=== PATIENT | male | born 1970 | race Caucasian/White ===

== ENCOUNTER 2020-07-24 21:14 | Emergency (ER) | payer OTHER ==
[~2020-07-24] VITALS: Ht 188 cm; Wt 83.9 kg
--- OUTSIDE RECORDS SUMMARY | ~2020-07-24 | XMS | Encounter Summary ---
Demographics + + + | Address | [address] | | | [place] [address] | + + + | Home Phone | | + + + | Preferred Language | Unknown | + + + | Marital Status | Single | + + + | Jain Affiliation | NON | + + + | Race | White | + + + | Ethnic Group | Not or | + + + Author + + + | Author | [facility] | + + + | Organization | [facility] | + + + | Address | Unknown | + + + | Phone | Unavailable | + + + Support + + + + + | Name | Relationship | Address | Phone | + + + + + | Abdon Gross | ECON | [address] | | | [address] | | [place] | | | | | [address] | | + + + + + Care Team Providers + +------+ + | Care Group Cio Name | Role | Phone | + +------+ + | No Pcp Per Patient | PCP | Unavailable | + +------+ + Reason for Visit + + + | Reason | Comments | + + + | Shoulder pain | R shoulder pain f/u. | + + + Consultation (Routine) + +--------+ + + + + | Status | Reason | Specialty | Diagnoses / | Referred By | Referred To | | | | | Procedures | Contact | Contact | + +--------+ + + + + | Pending | | Orthopedics | Diagnoses | [place], | Davian, | | Review | | | Unspecified | Michele Lin, | Mario Alberto Perez MD 7 | | | | | rotator | LOAD BUILDER | Anselmo Hernadez | | | | | cuff tear or | [place] | Drive | | | | | rupture of | [place] | [place], | | | | | right | Community | [place] [address] | | | | | shoulder, | Health [address] | Phone: | | | | | not | [address] | [phone] | | | | | specified as | [place], [place] | Fax: | | | | | traumatic | [address] | [phone] | | | | | Pain in | Phone: | | | | | | right | [phone] | | | | | | shoulder | Fax: | | | | | | Other muscle | [phone] | | | | | | spasm | | | | | | | Sciatica, | | | | | | | right side | | | + +--------+ + + + + Encounter Details +--------+---------+ + + + | Date | Type | Department | Care Team | Description | +--------+---------+ + + + | 06/08/ | Office | [facility] | Beni Helm, | Shoulder | | 2017 | Visit | Sports Medicine & | MD [address]os | impingement, right | | | | Orthopaedic Surgery | [address] [place], [place] | (Primary Dx) | | | | [address] | [address] | | | | | [place], [place] | [phone] | | | | | [address] | | | | | | [phone] | | | +--------+---------+ + + + Social History + +-------+ +--------+------+ | Tobacco Use | Types | Packs/Day | Years | Date | | | | | Used | | + +-------+ +--------+------+ | Former Smoker | | | | | + +-------+ +--------+------+ + + +---------+ + | Alcohol Use | Drinks/Week | oz/Week | Comments | + + +---------+ + | Yes | 2-5 Cans of beer | 0.0 | 2-5 20oz cans/week | + + +---------+ + + + + | Sex Assigned at | Date Recorded | | | | + + + | Not on file | | + + + documented as of this encounter Last Filed Vital Signs + +---------+ + + | Vital Sign | Reading | Time Taken | Comments | + +---------+ + + | Blood Pressure | 122/88 | 06/08/2017 2:52 PM | | | | | PDT | | + +---------+ + + | Pulse | 114 | 06/08/2017 2:52 PM | | | | | PDT | | + +---------+ + + | Temperature | - | - | | + +---------+ + + | Respiratory Rate | - | - | | + +---------+ + + | Oxygen Saturation | - | - | | + +---------+ + + | Inhaled Oxygen | - | - | | | Concentration | | | | + +---------+ + + | Weight | - | - | | + +---------+ + + | Height | - | - | | + +---------+ + + | Body Mass Index | - | - | | + +---------+ + + documented in this encounter Patient Instructions Patient Instructions Beni Helm MD - 06/08/2017 3:00 PM PDTFollow up in 6 weeks. Continue exercises. Ice for pain. documented in this encounter Progress Notes Beni Helm MD - 06/08/2017 3:00 PM PDT Chief Complaint: Right shoulder pain. HPI: David Hall is a 46 y.o. year old male from [place] who presents to the office to y for evaluation of right shoulder pain. He injured this linda years ago and is having pa in with activities that require right shoulder movement and strength overhead. He was referred to the office today for orthopedic evaluation by self. Current pain is 8/10 and is characterized as sharp, stabbing, aching and throbbing. Sympto ms are unchanged. The pain does wake the patient at night. It is associated with swelling , bruising and numbness. Symptoms are aggravated by overhead activities, lifting, exercise and improve with rest and ice. He is using naproxen for the pain. Past Medical and Surgical History: Reviewed per patient intake form. Review of Systems: Completed and reviewed with patient per patient intake form. Pertinent positives noted in HPI. See scanned document for reference. Physical Exam: BP 122/88 | Pulse 114 General/Constitutional: Well developed, well nourished male, alert and oriented, and in no acute distress. Right shoulder: Inspection: No swelling or obvious deformities. Palpation: Pain over biceps. Range of motion: FF 110. ER 45. IR 45. Strength: FF 4/5. ER 4/5. Stability: good Special Tests: pos speeds, pos impingement Contralateral shoulder- Inspection: No swelling or obvious deformities. Palpation: Nontender. Range of motion: Full range of motion. Strength: Normal strength. Diagnostic Imaging: XR examination reveals no evidence of acute fracture. Assessment: Right shoulder impingement. Plan: The patient's clinical history and physical exam are consistent with same. I reviewed the natural history of this disorder with the patient and have outlined treatment options. We will inject shoulder Injection: Risks and complications were discussed with the patient today. All questions were answered . Correct patient, site, and side were confirmed. After informed consent, a sterile prep w as performed on the right shoulder. 8cc of 0.25% Bupivocaine and 1 cc of Depo-Medrol 80mg/m L were injected into the right shouldert. A sterile dressing was applied. The patient zander ated the procedure well and there were no complications. Follow up: 6 weeks, he may need mri 17 3:53 PM PDTdocumented in this encounter Plan of Treatment +--------+ + + + + | Date | Type | Specialty | Care Team | Description | +--------+ + + + + | 08/07/ | Telephone-S | Pre-operative | , [facility] Double Needle Stitcher [address] | | | 2019 | cheduled | Medicine | [address] | | | | | | [place] [address] | | +--------+ + + + + | 08/13/ | Office | Surgery | Cyndie Hunt MD | | | 2019 | Visit | | [address] | | | | | | [place], | | | | | | [place] [address] | | | | | | [phone] | | | | | | | | +--------+ + + + + | 08/14/ | Procedure | Surgery | | | | 2019 | Pass | | | | +--------+ + + + + | 09/10/ | Telephone-S | Surgery | Cyndie Hunt MD | | | 2019 | cheduled | | [address] | | | | | | [place], | | | | | | [place] [address] | | | | | | [phone] | | | | | | | | +--------+ + + + + documented as of this encounter Procedures + +--------+ + + + | Procedure Name | Priori | Date/Time | Associated Diagnosis | Comments | | | ty | | | | + +--------+ + + + | [place] DRAIN/INJECT | Routin | 06/08/2017 | Shoulder | | | LARGE JOINT/BURSA | e | 3:18 PM | impingement, right | | | W/O US GUIDE | | PDT | | | + +--------+ + + + documented in this encounter Visit Diagnoses + + | Diagnosis | + + | Shoulder impingement, right - Primary | + + documented in this encounter Administered Medications + +--------+ +-------+------+ + | Medication Order | MAR | Action | Dose | Rate | Site | | | Action | Date | | | | + +--------+ +-------+------+ + | Methylprednisolone Acetate 80 | Given | 06/08/2017 | 80 mg | | Right | | Mg Intraarticular | | 15:43 | | | Shoulder | | | | PDT | | | | + +--------+ +-------+------+ + +---+---+ | | | +---+---+ documented in this encounter"
--- OUTSIDE RECORDS SUMMARY | ~2020-07-24 | XMS | Clinical Summary ---
Demographics + + + | Address | [address] | | | [place] [address] | + + + | Home Phone | | + + + | Preferred Language | Unknown | + + + | Marital Status | Single | + + + | Taoism Affiliation | NON | + + + | Race | White | + + + | Ethnic Group | Not or | + + + Author + + + | Author | [facility] | + + + | Organization | [facility] | + + + | Address | Unknown | + + + | Phone | Unavailable | + + + Support + + + + + | Name | Relationship | Address | Phone | + + + + + | Abdon Gross | ECON | [address] | | | [address] | | [place] | | | | | [address] | | + + + + + Care Team Providers + +------+ + | Care Air Hammer Operator Name | Role | Phone | + +------+ + | Francisco Macias | PCP | | + +------+ + Source Comments AMELIE is fully live on both [facility] Allergies + + + + + + | Active Allergy | Reactions | Severity | Noted | Comments | | | | | Date | | + + + + + + | Oxycodone | Pruritus | Low | 02/29/20 | Reaction: Itching | | | | | 19 | Reaction: Itching | | | | | | | + + + + + + Medications + + + +---------+------+------+-------+ | Medication | Sig | Dispensed | Refills | Star | End | Statu | | | | | | t | Date | s | | | | | | Date | | | + + + +---------+------+------+-------+ | ranitidine 150 mg | | | 0 | 04/0 | | Activ | | oral tablet | | | | 2/20 | | e | | | | | | 18 | | | + + + +---------+------+------+-------+ | naproxen 500 mg | | | 0 | 10/1 | | Activ | | oral tablet | | | | 0/20 | | e | | | | | | 18 | | | + + + +---------+------+------+-------+ | albuterol 90 | Inhale 2 puffs by | | 0 | 02/1 | | Activ | | mcg/actuation | mouth as needed. | | | 11/26 | | e | | inhalation HFA | | | | 20 | | | | aerosol inhaler | | | | | | | + + + +---------+------+------+-------+ | | Take 30 mg by mouth | | 0 | 05 | | Activ | | dextroamphetamine-am | once daily. | | | 07/27 | | e | | phetamine 30 mg oral | | | | 20 | | | | tablet | | | | | | | + + + +---------+------+------+-------+ | naproxen 500 mg | Take 500 mg by mouth | | 0 | 01/2 | | Activ | | oral tablet | two times daily. | | | 07/27 | | e | | | | | | 20 | | | + + + +---------+------+------+-------+ Active Problems + + + | Problem | Noted Date | + + + | Acute bronchitis | 12/18/2019 | + + + + + | Overview: Last Assessment & Plan: At this time I would like | | the patient to begin on albuterol sulfate 2 puffs every 4 hours | | as needed.Begin Robitussin 200 mg 4 times daily.There is no | | bacterial infection seen at today's examination. I suspect this | | is viral and should resolve, if not then need to | | re-eval.Discussed medication therapy risks and benefits.Return to | | clinic for new or worsening symptoms.Return precautions | | discussed as fever, chills, nausea, vomiting. 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 | | + + + | Status post rotator cuff repair | 03/21/2018 | + + + | Acute blood loss anemia | 04/03/2014 | + + + | Hematochezia | 04/01/2014 | + + + Encounters +--------+ + + + + | Date | Type | Specialty | Care Team | Description | +--------+ + + + + | 07/02/ | Abstract | Surgery | Cyndie Hunt MD | Medical Records | | 2019 | | | | Review | +--------+ + + + + | 07/01/ | Tractor Distributor | Surgery | Cyndie Hunt MD | Colostomy care ([facility]) | | 2019 | | | | (Primary Dx) | +--------+ + + + + | 07/01/ | Abstract | Surgery | Cyndie Hunt MD | | 2019 | | | | | +--------+ + + + + 06/30/ | Telephone | Surgery | Cyndie Hunt MD | Other (Completed | 2019 | | | | colonoscopy's ) | +--------+ + + + + 05/27/ | Abstract | Surgery | Cyndie Hunt MD | Medical Records | 2019 | | | | Review | +--------+ + + + + | 05/26/ | Telephone | Surgery | Cyndie Hunt MD | | 2019 | | | | | +--------+ + + + + | 05/21/ | Telephone | Surgery | Cyndie Hunt MD | | | 2020 | | | | | +--------+ + + + + from Last 3 Months Family History + + + + + | Medical History | Relation | Name | Comments | + + + + + | Alcohol abuse | Father | | | + + + + + | Hepatitis | Father | | | + + + + + | Liver cancer | Father | | | + + + + + | Arthritis | Mother | | | + + + + + | Arthritis | Other | [place] | | | | | her | | + + + + + | Colon Cancer | Neg Hx | | | + + + + + | Rectal cancer | Neg Hx | | | + + + + + + + + + + | Relation | Name | Status | Comments | + + + + + | Father | | | | + + + + + | Mother | | Alive | | + + + + + | Other | Grandmoth | | | | | er | | | + + + + + Social History + + + +--------+------+ | Tobacco Use | Types | Packs/Day | Years | Date | | | | | Used | | + + + +--------+------+ | Former Smoker | Cigarettes, Cigars | | | | + + + +--------+------+ + +---+---+---+ | Smokeless Tobacco: | | | | | Never Used | | | | + +---+---+---+ + + | Comments: quit cigarettes 2014, quit cigars in February 2015 | + + + + +---------+ + | Alcohol Use | Drinks/Week | oz/Week | Comments | + + +---------+ + | Yes | | | 24oz can beer | | | | | nightly. | + + +---------+ + + + + | Sex Assigned at | Date Recorded | | | | + + + | Not on file | | + + + Last Filed Vital Signs + + + + + | Vital Sign | Reading | Time Taken | Comments | + + + + + | Blood Pressure | 128/82 | 03/30/2018 3:03 PM | | | | | PDT | | + + + + + | Pulse | 117 | 03/30/2018 3:03 PM | | | | | PDT | | + + + + + | Temperature | 36.3 C (97.4 F) | 03/21/2018 5:20 PM | | | | | PDT | | + + + + + | Respiratory Rate | 18 | 03/21/2018 5:20 PM | | | | | PDT | | + + + + + | Oxygen Saturation | 98% | 03/30/2018 3:03 PM | | | | | PDT | | + + + + + | Inhaled Oxygen | - | - | | | Concentration | | | | + + + + + | Weight | 86.2 kg (190 lb) | 06/05/2018 3:35 PM | | | | | PDT | | + + + + + | Height | 188 cm (6' 2") | 06/05/2018 3:35 PM | | | | | PDT | | + + + + + | Body Mass Index | 24.39 | 06/05/2018 3:35 PM | | | | | PDT | | + + + + + Plan of Treatment +--------+ + + + + | Date | Type | Specialty | Care Team | Description | +--------+ + + + + | 08/07/ | Telephone-S | Pre-operative | 4, [facility] [address] | | | 2019 | cheduled | Medicine | [address] | | | | | | [place] [address] | | +--------+ + + + + | 08/13/ | Office | Surgery | Cyndie Hunt MD | | | 2019 | Visit | | [address] | | | | | | [place], | | | | | | [place] [address] | | | | | | [phone] | | | | | | | | +--------+ + + + + | 08/14/ | Procedure | Surgery | | | | 2019 | Pass | | | | +--------+ + + + + | 09/10/ | Telephone-S | Surgery | Cyndie Hunt MD | | | 2019 | cheduled | | [address] | | | | | | [place], | | | | | | [place] [address] | | | | | | [phone] | | | | | | | | +--------+ + + + + + + +-------+ + | Health Maintenance | Due Date | Last | Comments | | | | Done | | + + +-------+ + | Influenza (Flu) | | | | | vaccination (#1) | 0 | | | + + +-------+ + | Pneumococcal | Aged Out | | No longer eligible based on patient's age | | vaccination | | | to complete this topic | + + +-------+ + Implants + +------+--------+ +--------+--------+--------+ | Implanted | Type | Area | Manufacture | Device | Shelf | Model | | | | | r | | Expira | / | | | | | | Identi | tion | Serial | | | | | | fier | Date | / Lot | + +------+--------+ +--------+--------+--------+ | [employer] | | Right: | [id number] | | 12/07/ | [id number] | | [id number] - | | | C | | 2020 | [id number] | | [id number]: | | Should | | | | | | Qty: 1 on 03/21/2018 by | | er | | | | /[id number] | | Beni Helm MD at [facility] | | | | | | [id number] | | INPATIENT REV LOC | | | | | | [id number] | | | | | | | | /[address] | | | | | | | | [phone] | + +------+--------+ +--------+--------+--------+ Results Not on filefrom Last 3 Months Insurance + +--------+ +--------+-------+---------+--------+ | Payer | Benefi | Subscriber | Effect | Phone | Address | Type | | | t Plan | ID | sergio | | | | | | / | | Dates | | | | | | Group | | | | | | + +--------+ +--------+-------+---------+--------+ | CERTIFIED MEDICAL RECORDS CODER MEDICAID | CERTIFIED MEDICAL RECORDS CODER | [id number] | 01/06/20 | | | Medica | | | [place] | | 17-Pre | | | id | | | [place] | | sent | | | | + +--------+ +--------+-------+---------+--------+ | CERTIFIED MEDICAL RECORDS CODER MEDICAID | CERTIFIED MEDICAL RECORDS CODER | [id number] | | | | Medica | | | [place] | | 019-Pr | | | id | | | [place] | | esent | | | | + +--------+ +--------+-------+---------+--------+ + +--------+ +--------+ + + | Guarantor Name | Accoun | Relation to | Date | Phone | Billing Address | | | t Type | Patient | of | | | | | | | | | | + +--------+ +--------+ + + | David Hall | Person | Self | [birth year] | | [address] | | [place] | al/Fam | | 1970 | [phone] | [place] [address] | | | barbie | | | 4 (Home) | | + +--------+ +--------+ + + | David Hall | Person | Self | [birth year] | | [address] | | [place] | al/Fam | | 1969 | [phone] | [place] [address] | | | barbie | | | 4 (Home) | | + +--------+ +--------+ + + Advance Directives + + + + + | Code Status | Date | Date | Comments | | | Activated | Inactivated | | + + + + + | Full Code | 03/21/2018 | 03/21/2018 | | | | 4:23 PM | 11:33 PM | | + + + + + + + + +---+ | | | | | + + + +---+ | Full Code | 04/02/2014 | 04/03/2014 | | | | 10:14 PM | 3:40 PM | | + + + +---+
--- OUTSIDE RECORDS SUMMARY | ~2020-07-24 | XMS | Encounter Summary ---
Demographics + + + | Address | [address] | | | [place] [address] | + + + | Home Phone | | + + + | Preferred Language | Unknown | + + + | Marital Status | Single | + + + | Yazidism Affiliation | NON | + + + | Race | White | + + + | Ethnic Group | Not or | + + + Author + + + | Author | [facility] | + + + | Organization | [facility] | + + + | Address | Unknown | + + + | Phone | Unavailable | + + + Support + + + + + | Name | Relationship | Address | Phone | + + + + + | Abdon Gross | ECON | [address] | | | [address] | | [place] | | | | | [address] | | + + + + + Care Team Providers + +------+ + | Care Cold Strip Roller Name | Role | Phone | + +------+ + | Francisco Macias | PCP | | + +------+ + Encounter Details +--------+ + + + + | Date | Type | Department | Care Team | Description | +--------+ + + + + | 10/19/ | Document-Sc | [facility] | Beni Helm, | | | 2018 | anned | Sports Medicine & | MD Mabel Avalos | | | | | Orthopaedic Surgery | [address] | | | | | [address] | [address] | | | | | [place] | [phone] | | | | | [address] | | | | | | [phone] | | | +--------+ + + + + Social History + +-------+ +--------+ + | Tobacco Use | Types | Packs/Day | Years | Date | | | | | Used | | + +-------+ +--------+ + | Former Smoker | | | | Quit: 11/11/2014 | + +-------+ +--------+ + + +---+---+---+ | Smokeless Tobacco: | | | | | Never Used | | | | + +---+---+---+ + + + + + | Alcohol Use | Drinks/Week | oz/Week | Comments | + + + + + | Yes | 7-14 Cans of beer | 7.0 - 14.0 | 24oz can beer | | | | | nightly. | + + + + + + + + | Sex Assigned at | Date Recorded | | | | + + + | Not on file | | + + + documented as of this encounter Plan of Treatment +--------+ + + + + | Date | Type | Specialty | Care Team | Description | +--------+ + + + + | 08/07/ | Telephone-S | Pre-operative | 4, [facility] [address] | | | 2020 | cheduled | Medicine | [address] | | | | | | [place] [address] | | +--------+ + + + + | 08/13/ | Office | Surgery | Cyndie Hunt MD | | | 2019 | Visit | | [address] | | | | | | [place], | | | | | | [place] [address] | | | | | | [phone] | | | | | | | | +--------+ + + + + | 08/14/ | Procedure | Surgery | | | | 2019 | Pass | | | | +--------+ + + + + | 09/10/ | Telephone-S | Surgery | Cyndie Hunt MD | | | 2019 | cheduled | | [address] | | | | | | [place], | | | | | | [place] [address] | | | | | | [phone] | | | | | | | | +--------+ + + + + documented as of this encounter Visit Diagnoses Not on filedocumented in this encounter"
--- OUTSIDE RECORDS SUMMARY | ~2020-07-24 | XMS | Encounter Summary ---
Demographics + + + | Address | [address] | | | [place] [address] | + + + | Home Phone | | + + + | Preferred Language | Unknown | + + + | Marital Status | Single | + + + | Latter Day Affiliation | NON | + + + | Race | White | + + + | Ethnic Group | Not or | + + + Author + + + | Author | [facility] | + + + | Organization | [facility] | + + + | Address | Unknown | + + + | Phone | Unavailable | + + + Support + + + + + | Name | Relationship | Address | Phone | + + + + + | Abdon Gross | ECON | [address] | | | [address] | | [place] | | | | | [address] | | + + + + + Care Team Providers + +------+ + | Care Exterior Interior Specialist Name | Role | Phone | + +------+ + | No Pcp Per Patient | PCP | Unavailable | + +------+ + Encounter Details +--------+ + + + + | Date | Type | Department | Care Team | Description | +--------+ + + + + | 03/15/ | Document-Sc | [facility] | Beni Helm, | | | 2018 | anned | Sports Medicine & | MD Mabel Avalos | | | | | Orthopaedic Surgery | [place] | | | | | [address] | [address] | | | | | [place] | [phone] | | | | | [address] | | | | | | [phone] | | | +--------+ + + + [...] | Telephone-S | Pre-operative | [facility], [facility] [address] | | | 2020 | cheduled | Medicine | [address] | | | | | | [place] [address] | | +--------+ + + + + | 08/13/ | Office | Surgery | Cyndie Hunt MD | | | 2019 | Visit | | [address] | | | | | | [place], | | | | | | [place] [address] | | | | | | [phone] | | | | | | | | +--------+ + + + + | 08/14/ | Procedure | Surgery | | | | 2020 | Pass | | | | +--------+ + + + + | 09/10/ | Telephone-S | Surgery | Cyndie Hunt MD | | | 2019 | cheduled | | [address] | | | | | | [place], | | | | | | [place] [address] | | | | | | [phone] | | | | | | | | +--------+ + + + + documented as of this encounter Visit Diagnoses Not on filedocumented in this encounter"
--- OUTSIDE RECORDS SUMMARY | ~2020-07-24 | XMS | Encounter Summary ---
Demographics + + + | Address | [address] | | | [place] [address] | + + + | Home Phone | | + + + | Preferred Language | Unknown | + + + | Marital Status | Single | + + + | Mu-Ism Affiliation | NON | + + + | Race | White | + + + | Ethnic Group | Not or | + + + Author + + + | Author | [facility] | + + + | Organization | [facility] | + + + | [...] [place] | | | | | [address] | | + + + + + Care Team Providers + +------+ + | Care Torque Tester Name | Role | Phone | + +------+ + | No Pcp Per Patient | PCP | Unavailable | + +------+ + Reason for Visit + + + | Reason | Comments | + + + | Pre-op evaluation | | + + + Encounter Details +--------+ + + + + | Date | Type | Department | Care Team | Description | +--------+ + + + + | 03/13/ | Telephone-S | Pre-Operative | | Pre-op evaluation | | 2018 | cheduled | [facility] | | | | | | [facility] [address] | | | | | | [place], | | | | | | [place] [address] | | | | | | [phone] | | | +--------+ + + + + Anesthesia Record + + + + + | Procedure Name | Responsible | Anesthesia Start | Anesthesia Stop Time | | | Anesthesiologist | Time | | + + + + + | Arthroscopic | Tejas Cook MD | 03/21/18 1456 | 03/21/18 1615 | | Shoulder Rotator | | | | | Cuff Repair, Rotator | | | | | Cuff Debridement | | | | | and Biceps | | | | | Debridement (Right | | | | | Shoulder) | | | | + + + + + +----+---+ + + | Da | T | Event | Comment | | te | i | | | | | m | | | | | e | | | +----+---+ + + | 05 | 1 | | | | /1 | 4 | | | | 5/ | 0 | | | | 20 | 7 | | | | 18 | | | | +----+---+ + + | | 1 | Pt. Check | Prior to anesthesia start, pt. Identified, examined, chart | | | 4 | | reviewed, PARQ held, anesthetic plan made or approved by | | | 0 | | attending anesthesiologist. NPO status confirmed as appropriate | | | 7 | | for procedure Preoperative evaluation: unchanged | +----+---+ + + | | 1 | Eq Check | Anesthesia machine checked Equipment verified | | | 4 | | | | | 3 | | | | | 4 | | | +----+---+ + + | | 1 | An Start | | | | 4 | Data | | | | 4 | | | | | 8 | | | +----+---+ + + | | 1 | Vitals | Monitors applied Vital signs checked Patient ready for anesthesia | | | 4 | Checked | | | | 5 | | | | | 1 | | | +----+---+ + + | | 1 | An Start | | | | 4 | | | | | 5 | | | | | 6 | | | +----+---+ + + | | 1 | ETT | | | | 4 | | | | | 5 | | | | | 7 | | | +----+---+ + + | | 1 | Ready | | | | 5 | | | | | 0 | | | | | 1 | | | +----+---+ + + | | 1 | Abx | | | | 5 | Administere | | | | 0 | d | | | | 5 | | | +----+---+ + + | | 1 | Incision | | | | 5 | | | | | 1 | | | | | 4 | | | +----+---+ + + | | 1 | Surgery end | | | | 6 | | | | | 0 | | | | | 7 | | | +----+---+ + + | | 1 | Anesthesia | | | | 6 | End | | | | 1 | | | | | 5 | | | +----+---+ + + +------+ | Meds | +------+ + + + No medications | on file. | + + + + + | No agents on file. | + + + + | No blood administrations on file. | + + +--------+ + + + | Type | Details | Placement | Removal | +--------+ + + + | Incisi | 03/21/18; Dr. Radha Helm; Right; | 03/21/18 0000 by | | | on | Medial, Lateral; shoulder | Sameer Hall RN | | +--------+ + + + | Periph | 03/21/18; 0936; (Tatomia Liriano | 03/21/18 0936 by | 03/21/18 1725 by | | farzaneh | ); Left; Hand; 20 g; Positive; | Bina Roche RN | Venessa Nearing | | IV | 03/21/18; 1725; Discharge | | | +--------+ + + + documented in this encounter Social History + +-------+ +--------+ + | [...] this encounter Last Filed Vital Signs + + + + + | Vital Sign | Reading | Time Taken | Comments | + + + + + | Blood Pressure | - | - | | + + + + + | Pulse | - | - | | + + + + + | Temperature | - | - | | + + + + + | Respiratory Rate | - | - | | + + + + + | Oxygen Saturation | - | - | | + + + + + | Inhaled Oxygen | - | - | | | Concentration | | | | + + + + + | Weight | - | - | | + + + + + | Height | 188 cm (6' 2") | 03/13/2018 10:22 AM | | | | | PDT | | + + + + + | Body Mass Index | - | - | | + + + + + documented in this encounter Patient Instructions Patient Instructions Rosie Toney RN - 03/13/2018 10:35 AM PDTNothing to eat or drin k after midnight. Check in at room 410 on the morning of surgery, next door to elevators on your right. MD office will call you with your arrival time prior to you surgery. Please leav e all jewelry at home day of surgery; rings, watches, necklaces, etc. Use no make - up, loti ons, perfumes, or body powders on the day of your surgery. Take ranitidine with a few small sips of water the morning of surgery, if needed. Patient advised of the above information via phone interview. documented in this encounter Plan of Treatment +--------+ + + + + | Date | Type | Specialty | Care Team | Description | +--------+ + + + + | 08/07/ | Telephone-S | Pre-operative | , [facility] Planning Ad[facility] [address] | | | 2019 | [facility] | Medicine | [address] | | | | | | [place] [address] | | +--------+ + + + + | 08/13/ | Office | Surgery | Cyndie Hunt MD | | 2019 | Visit | | [address] | | | | | | [place], | | | | | | [place] [address] | | | | | | [phone] | | | | | | | [...] | | | | | | [place] [address] | | | | | | [phone] | | | | | | | | +--------+ + + + + documented as of this encounter Visit Diagnoses Not on filedocumented in this encounter
--- OUTSIDE RECORDS SUMMARY | ~2020-07-24 | XMS | Encounter Summary ---
Demographics + + + | Address | [address] | | | [place] [address] | + + + | Home Phone | | + + + | Preferred Language | Unknown | + + + | Marital Status | Single | + + + | Church Affiliation | NON | + + + | Race | White | + + + | Ethnic Group | Not or | + + + Author + + + | Author | [facility] | + + + | Organization | [facility] | + + + | [...] [place] | | | | | [address] | | + + + + + Care Team Providers + +------+ + | Care Training Program Developer Name | Role | Phone | + +------+ + | No Pcp Per Patient | PCP | Unavailable | + +------+ + Reason for Visit + +--------+ + | Reason | Onset | Comments | | | Date | | + +--------+ + | Care Coordination | 10/26/ | | | | 2016 | | + +--------+ + Encounter Details +--------+ + + + + | Date | Type | Department | Care Team | Description | +--------+ + + + + | 10/26/ | Telephone | [facility] | Beni Helm, | Care Coordination | | 2017 | | Sports Medicine & | MD Mabel [address]os | | | | | Orthopaedic Surgery | [address] [place], [place] | | | | | [address] | [address] | | | | | [place], [place] | [phone] | | | | | [address] | | | | | | [phone] | | | +--------+ + + + [...] + + documented as of this encounter Miscellaneous Notes Telephone Encounter - Callie Magaña - 10/26/2017 3:53 PM PSTPatient's MRI CD has not be en received in our office, attempted to call the patient and inform if we don't get CD by hi s appt scheduled for Tuesday10/28/17 we will have to r/s, unless patient has a copy of CD. Andi guadarrama to [place], box full. P STdocumented in this encounter Plan of Treatment +--------+ + + + + | Date | Type | Specialty | Care Team | Description | +--------+ + + + + | 08/07/ | Telephone-S | Pre-operative | 4, [facility] [address] | | | 2019 | cheduled | Medicine | [address] | | | | | | [place] [address] | | +--------+ + + + + | 08/13/ | Office | Surgery | Cyndie Hunt MD | | | 2019 | Visit | | [address] | | | | | | [place], | | | | | | [place] [address] | | | | | | [phone] | | | | | | | | +--------+ + + + + | 08/14/ | Procedure | Surgery | | | | 2019 | Pass | | | | +--------+ + + + + | 09/10/ | Telephone-S | Surgery | Cnydie Hunt MD | | | 2020 | cheduled | | [address] | | | | | | [place], | | | | | | [place] [address] | | | | | | [phone] | | | | | | | | +--------+ + + + + documented as of this encounter Visit Diagnoses Not on filedocumented in this encounter"
--- OUTSIDE RECORDS SUMMARY | ~2020-07-24 | XMS | Encounter Summary ---
Demographics + + + | Address | [address] | | | [place] [address] | + + + | Home Phone | | + + + | Preferred Language | Unknown | + + + | Marital Status | Single | + + + | Restorationism Affiliation | NON | + + + | Race | White | + + + | Ethnic Group | Not or | + + + Author + + + | Author | [facility] | + + + | Organization | [facility] | + + + | Address | Unknown | + + + | Phone | Unavailable | + + + Support + + + + + | Name | Relationship | Address | Phone | + + + + + | Abdon Gross | ECON | [address] | | | [address] | | [place] | | | | | [address] | | + + + + + Care Team Providers + +------+ + | Care Anthropology Instructor Name | Role | Phone | + +------+ + | No Pcp Per Patient | PCP | Unavailable | + +------+ + Encounter Details +--------+ + + + + | Date | Type | Department | Care Team | Description | +--------+ + + + + | 06/16/ | Document-Sc | [facility] | Beni Helm, | | | 2017 | anned | Sports Medicine & | MD Mabel Avalos | | | | | Orthopaedic Surgery | [place] | | | | | [address] | [address] | | | | | [place] | [phone] | | | | | [address] | | | | | | [phone] | | | +--------+ + + + [...] | Telephone-S | Pre-operative | 4, [facility] [address] | | | 2019 | cheduled | Medicine | [address] | | | | | | [place] [address] | | +--------+ + + + + | 08/13/ | Office | Surgery | Cyndie Hunt MD | | | 2019 | Visit | | [address] | | | | | | [place] | | | | | | [place] [address] | | | | | | [phone] | | | | | | | | +--------+ + + + + | 08/14/ | Procedure | Surgery | | | | 2019 | Pass | | | | +--------+ + + + + | 09/10/ | Telephone-S | Surgery | Cyndie Hunt MD | | | 2019 | [place] | | [address] | | | | | | [place], | | | | | | [place] [address] | | | | | | [phone] | | | | | | | | +--------+ + + + + documented as of this encounter Visit Diagnoses Not on filedocumented in this encounter"
--- OUTSIDE RECORDS SUMMARY | ~2020-07-24 | XMS | Encounter Summary ---
Demographics + + + | Address | [address] | | | [place] [address] | + + + | Home Phone | | + + + | Preferred Language | Unknown | + + + | Marital Status | Single | + + + | Mandaen Affiliation | NON | + + + | Race | White | + + + | Ethnic Group | Not or | + + + Author + + + | Author | [facility] | + + + | Organization | [facility] | + + + [...] [place] | | | | | [address] | | + + + + + Care Team Providers + +------+ + | Care Physiatrist Name | Role | Phone | + +------+ + | No Pcp Per Patient | PCP | Unavailable | + +------+ + Reason for Visit Consult to [place] (Routine) +--------+--------+ + + + + | Status | Reason | Specialty | Diagnoses / | Referred By | Referred To | | | | | Procedures | Contact | Contact | +--------+--------+ + + + + | Closed | | Orthopedics | Diagnoses | Zechariah, | McMc | | | | | Complete | Marley Duran, | Orthopedics | | | | | tear of | PA-C [address] | | | | | right | [address] | [address] | | | | | rotator cuff | [address] | [address] | | | | | | [address] | [place] [address] | | | | | Impingement | [place], [place] | Phone: | | | | | syndrome of | [address] | [phone] | | | | | right | Phone: | Fax: | | | | | shoulder | [phone] | [phone] | | | | | Procedures | Fax: | | | | | | REQUEST TO | [phone] | | | | | | SURGERY | | | | | | | PHOTOGRAPHY SPOTTER | | | | | | | IN SHLDR | | | | | | | ARTHROSCOP,S | | | | | | | URG,W/ROTAT | | | | | | | CUFF REPR | | | | | | | IN SHLDR | | | | | | | ARTHROSCOP,P | | | | | | | ART | | | | | | | ACROMIOPLAS | | | | | | | W/CORACOACRO | | | | | | | M IN SHLDR | | | | | | | ARTHROSCOP,S | | | | | | | URG,DIS | | | | | | | CLAVICULECTO | | | | | | | MY | | | +--------+--------+ + + + + Encounter Details +--------+---------+ + + + | Date | Type | Department | Care Team | Description | +--------+---------+ + + + | 0515/ | Surgery | [facility] | Roberto Helm, | Arthroscopic | | 2018 | | [facility] [address] | MD Mabel [address]valos | Shoulder Rotator | | | | [address] [place], [place] | Cuff Repair, Rotator | | | | [place], [place] | [address] | Cuff Debridement | | | | [address] | [phone] | and Biceps | | | | | | Debridement | +--------+---------+ + + + Social History [...] + + + | Blood Pressure | 114/77 | 03/21/2018 5:20 PM | | | | | PDT | | + + + + + | Pulse | 73 | 03/21/2018 5:20 PM | | | [...] + + + | Oxygen Saturation | 97% | 03/21/2018 5:20 PM | | | | | PDT | | + + + + + | Inhaled Oxygen | - | - | | | Concentration | | | | + + + + + | Weight | 82.9 kg (182 lb 12.2 | 03/21/2018 9:06 AM | | | | oz) | PDT | | + + + + + | Height | 188 cm (6' 2") | 03/21/2018 9:06 AM | | | | | PDT | | + + + + + | Body Mass Index | 23.47 | 03/21/2018 9:06 AM | | | | | PDT | | + + + + + documented in this encounter Discharge Instructions Instructions Brigida Webber RN - 03/21/2018POST SEDATION DISCHARGE INSTRUCTIONS The medications you have received today for your procedure will remain in your body for christina e time. You may experience dizziness, drowsiness, or lightheadedness. You sense of balance a nd fine muscle control may be affected. You reaction time will be slowed, making activities like driving dangerous. You may not recognize any of these changes. Therefore to assure a sa fe and complete recovery, we ask you to follow these strict instructions. 1. DO NOT DRIVE for 24 hours. 2. DO NOT USE potentially DANGEROUS appliances or equipment (stove, lawnmower, garbage disp osal, iron, etc.) 3. Be aware of DIZZINESS. Move slowly, taking you time. Sudden position changes can cause n ausea. 4. DO NOT MAKE Any IMPORTANT DECISIONS. You may change your mind tomorrow. 5. NO NOT DRINK ALCOHOLIC beverages for 24 hours. The combination of drugs and alcohol coul d be dangerous. 6. DISCUSS with your doctor and questions or concerns you may have. documented in this encounter Medications at Time of Discharge + + + +---------+ + + | Medication | Sig | Dispensed | Refills | Start | End Date | | | | | | Date | | + + + +---------+ + + | ranitidine 150 mg | | | 0 | 02/07/20 | | | oral tablet | | | | 18 | | + + + +---------+ + + | doxycycline | Take 1 capsule by | 8 | 0 | 03/21/20 | | | hyclate 100 mg oral | mouth every twelve | capsule | | 18 | 8 | | capsule | hours for 4 days. | | | | | | | (Pharmacist to | | | | | | | substitute salt form | | | | | | | as needed) | | | | | + + + +---------+ + + documented as of this encounter H&P Notes Roberto Helm MD - 03/21/2018 2:48 PM PDTI have examined the patient and reviewed the History and Physical and have confirmed that it is accurate and current. ROBERTO HELM MD Marley Bonilla PA-C - 03/10/2018 2:15 PM PDT Chief Complaint: Right shoulder pain. HPI: David Hall is a 46 y.o. year old male from [place] who returns to the office today for follow up of right shoulder pain. He injured this linda years ago and is having pain with activities that require right shoulder movement and strength overhead. The patient beebe s received two cortisone injection in his right shoulder. The most recent injection on did not last long and so an MRI of his shoulder was ordered for additional evaluation. He has been to PT with minimal relief of his symptoms. MRI of the shoulder revealed RC tear. T he patient was previously scheduled for a right shoulder RC repair in November 2017 however t his was cancelled. 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 Symptoms are worsening. The pain does wake the patient at night. It is associated with tingling, w eakness and numbness. Symptoms are aggravated by standing, walking, overhead activities, an d improve with ice. He is using naproxen for the pain. The patient has failed previous attempts at non operative treatment. ? Medications: Patient has tried taking NSAIDs for pain. ? Physical therapy: Patient has had prior physical therapy and symptoms have progressed in spite of good effort. ? Injections: Failed x 2 Review of Systems Constitutional: Negative for chills, fever and weight loss. HENT: Negative for hearing loss. Eyes: Negative for blurred vision and double vision. Respiratory: Negative for cough and shortness of breath. Cardiovascular: Negative for chest pain and palpitations. Gastrointestinal: Negative for abdominal pain, nausea and vomiting. Past Medical & Surgical History: Past medical and surgical history reviewed per patient intake form. History reviewed. No pertinent past medical history. Past Surgical History Procedure Laterality Date Foreign body removal, rectum multiple admissions for foreign body removal. Is not sure about how many surgies Family History Problem Relation Arthritis Mother Hepatitis Father Arthritis Other Social history: Occupation: CONTRACTOR He reports that he quit smoking about 3 years ago. He has never used smokeless tobacco. He reports that he drinks about 4.2 - 8.4 oz of alcohol per week . He reports that he does not use drugs. Allergies: No Known Allergies Current Medications: Current Outpatient Prescriptions Medication cyclobenzaprine 10 mg oral tablet meloxicam 15 mg oral tablet naproxen 500 mg oral tablet ranitidine 150 mg oral tablet No current facility-administered medications for this visit. Physical Exam: BP 110/78 | Pulse 94 | Ht 1.829 m (6') | Wt 88.5 kg (195 lb) | SpO2 96% | BMI 26.45 kg/(m^2 ) General: AAOx3, cooperative with exam HEENT: nonicteric Cardiac: Regular rate and rhythm, no murmurs or gallops appreciated Chest: CTA bilat Skin: Intact over surgical site without erythema or lesions. Right shoulder: Inspection: No swelling or obvious deformities. Palpation: Pain over biceps. Range of motion: FF 150. ER 45. IR 45. (painful arc) Strength: FF 3/5. ER 4/5. IR 4/5 Stability: good Special Tests: pos speeds, pos impingement NVI Contralateral shoulder- Inspection: No swelling or obvious deformities. Palpation: Nontender. Range of motion: Full range of motion. Strength: Normal strength. Diagnostic Imaging: XR examination reveals no evidence of acute fracture. MRI right shoulder-Tear of supraspinatus with retraction, no atrophy. Assessment: Right shoulder rotator cuff tear Right shoulder impingement. Plan: The patient's clinical history and physical exam are consistent with right shoulder RC tear and impingement. I reviewed the natural history of this disorder with the patient and have outlined treatment options. I have recommended surgical intervention. The patient underst ands the risks and benefits associated with the procedure and wishes to proceed. I have revi ewed the post operative rehabilitation protocol. The patient understands he will be in a s ling for 6 weeks post op. He is scheduled for right shoulder arthroscopy on 03/21/18. Follow up: 2 weeks post op. Patient understands and accepts risks of surgery that include but are not limited to need f or more surgery, no improvement or worsening of condition, blood clots , stiffness, damage t o nerves and blood vessels, infection, continued pain. documented in this encounter Procedure Notes Roberto Helm MD - 03/21/2018 5:28 PM PDTAssociated Order(s): OPERATION RECORDDATE OF OPERATION: 03/21/2018 SURGEON: Roberto Helm M.D. DIRECTOR OF CAPITAL GIVING: Marley Ervin, certified physician office services assistant. An office services assistant is mandatory becau se of the nature of the surgery and the need for skilled retraction to safely perform this i ntervention. She was present and scrubbed the entire time and her presence decreased operat sergio time by at least 90 minutes, decreasing risk of infection or other complications. 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 Pain at this joint and rotator cuff tear. 2.Biceps tendon tear and labral tear type 1. 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 Pain at this joint and rotator cuff tear. 2.Biceps tendon tear and labral tear type 1. PROCEDURES: Right shoulder arthroscopy with debridement of labral tear type 1. Debridemen t of a rotator cuff tear and biceps tendon tear with debridement of the rotator cuff, the bi ceps tendon and the labrum followed by arthroscopic subacromial decompression and arthroscop ic distal clavicle excision, and arthroscopic rotator cuff repair. ANESTHESIA: General INDICATION: This is a 47-year-old, who has had persistent pain in his shoulder, rotator cu ff tear on MRI, and brought to the operating room for shoulder arthroscopy. He understands and accepts the risks of surgery that include, but not limited to, need for more surgery, no improvement, worsening of his condition, damage to nerves and blood vessels, infection, blo od clots, stiffness. He understands and accepts these risks and agrees to proceed. PROCEDURE IN DETAIL: The patient was identified, given 2 grams of Ancef, brought to the op erating room. Anesthesia was induced. He had an interscalene block placed. He had full mo tion of the shoulder under anesthesia. He was placed in the beach-chair position. All bony prominences were well padded. Neck was protected at all times. The right shoulder was pre pped and draped sterilely. A posterior portal was made 1 thumb breadth inferior and medial to the posterolateral border of the acromion and a stab wound was made. The blunt trocar wa s used to bring the scope in the glenohumeral joint. Anterior portal was established with a Wissinger camilo, exiting superior and lateral to coracoid between biceps, glenoid, and subsca pularis. The glenohumeral joint was inspected. He had a type 1 labral tear that was debrid ed. He had full thickness rotator cuff tear that was debrided and a biceps tendon tear that was shallow but it was debrided. I was perhaps 1 or 2 mm in depth. The scope was redirect ed in the subacromial space, and a lateral portal was established 3 cm off the lateral borde r of the acromion. The patient had a bursectomy completed and a coracoacromial ligament was released. A subacromial decompression was performed by removing the anterior 8-10 mm of th e acromion and tapering this posteriorly for 2.5 cm. Distal clavicle was then excised. At this time, the patient had the rotator cuff mobilized and a SpeedBridge was used with medial road, it was loaded anchors and ecd lateral row to bring the supraspinatus tear. Ther e was a 2 x 2 cm tear back down with the arm at the side. I was very happy with the repair as it was very secure in all motion of the shoulder. Copious amounts of fluid were run thro ugh the shoulder until it was clear. Excess fluid was removed from the shoulder. Portals we re closed with nylon. A sterile dressing was applied. He was taken to the recovery room in stable condition. There were no complications. ESTIMATED BLOOD LOSS: Less than 30 cc. All counts were correct prior to closure of the wo und. Roberto Helm M.D. JAYCEE/ROSAL /[id number] signed by Roberto Helm MD at 03/22/2018 2:33 PM PDTReardonRoberto MD - 03/21/2018 4:06 PM PDTAssociated Order(s): ARTHROSCOPIC DECOMPRE SSION OF RIGHT SHOULDER WITH ROTATOR CUFF REPAIRProcedure(s): ARTHROSCOPIC DECOMPRESSION OF RIGHT SHOULDER WITH ROTATOR CUFF REPAIRProcedure:right shoulder scope with extensive debride ment and sub acromial decompression with distal clavicle excision and rotator cuff repair Pre-Op Diagnosis:rotator cuff tear right Post-Op Diagnosis:same Surgeon: MD Volodymyr Sack Sewer Machine: VIRAL Apple Type of Anesthesia:gen Anesthesiologist:rico Tubes/Drains:none EBL:<30cc Complications:none Pt's Condition/Disposition:to stableElectronically signed by Roberto Helm MD at 03/07 4:08 PM PDTdocumented in this encounter Miscellaneous Notes Plan of Care - Brigida Webber RN - 03/21/2018 5:12 PM PDTProblem: General Plan of Car e (Adult, Obstetrics, Pediatrics) Goal: Plan of Care Review Uneventful recovery, pain is well controlled. Patient states understanding to discharge ins tructions, all questions answered. Educated patient on [facility]. Patient states understanding to instructions. documented in this encounter Plan of Treatment +--------+ + + + + | Date | Type | Specialty | Care Team | Description | +--------+ + + + + | 08/07/ | Telephone-S | Pre-operative | 4, [facility] [address] | | | 2019 | cheduled | Medicine | [address] | | | | | | [place] [address] | | +--------+ + + + + | 08/13/ | Office | Surgery | Cyndie Hunt MD | | | 2019 | Visit | | [address] | | | | | | [facility] [facility] | | | | | | [place] [address] | | | | | | [phone] | | | | | | | | +--------+ + + + + | 08/14/ | Procedure | Surgery | | | | 2019 | Pass | | | | +--------+ + + + + | 09/10/ | Telephone-S | Surgery | Cyndie Hunt MD | | | 2019 | gita | | [address] | | | | | | [place], | | | | | | [place] [address] | | | | | | [phone] | | | | | | | | +--------+ + + + + + +---------+--------+ + + | Name | Type | Priori | Associated Diagnoses | Order Schedule | | | | ty | | | + +---------+--------+ + + | US GUIDANCE | Imaging | Routin | | One Time for 1 | | | | e | | Occurrences starting | | | | | | 03/21/2018 until | | | | | | 03/21/2018 | + +---------+--------+ + + documented as of this encounter Procedures + +--------+ + + + | Procedure Name | Priori | Date/Time | Associated Diagnosis | Comments | | | ty | | | | + +--------+ + + + | OPERATION RECORD | | 03/21/2018 | | Results for this | | | | 5:28 PM | | procedure are in the | | | | PDT | | results section. | + +--------+ + + + | ARTHROSCOPIC | Routin | 03/21/2018 | | Results for this | | DECOMPRESSION OF | e | 4:06 PM | | procedure are in the | | RIGHT SHOULDER WITH | | PDT | | results section. | | ROTATOR CUFF REPAIR | | | | | + +--------+ + + + | ARTHROSCOPIC | Electi | 03/21/2018 | M75.121 | | | SUBACROMIAL | ve | 2:48 PM | (ICD-10-CM) - 727.61 | | | DECOMPRESSION | Surgic | PDT | (ICD-9-CM) - | | | | al | | Complete tear of | | | | | | right rotator cuff | | | | | | M75.41 (ICD-10-CM) - | | | | | | 726.2 (ICD-9-CM) - | | | | | | Impingement syndrome | | | | | | of right shoulder | | + +--------+ + + + +---+--------+ | | | | | Specia | | | l | | | Needs | | | CTU, | | | pillow | | | sling | +---+--------+ + +--------+ + +---+ | ARTHROSCOPIC LABRAL | Electi | 03/21/2018 | M75.121 | | | TEAR REPAIR | ve | 2:48 PM | (ICD-10-CM) - 727.61 | | | | Surgic | PDT | (ICD-9-CM) - | | | | al | | Complete tear of | | | | | | right rotator cuff | | | | | | M75.41 (ICD-10-CM) - | | | | | | 726.2 (ICD-9-CM) - | | | | | | Impingement syndrome | | | | | | of right shoulder | | + +--------+ + +---+ +---+--------+ | | | | | Specia | | | l | | | Needs | | | CTU, | | | pillow | | | sling | +---+--------+ + +--------+ + +---+ | ARTHROSCOPIC ROTATOR | Electi | 03/21/2018 | M75.121 | | | CUFF REPAIR | ve | 2:48 PM | (ICD-10-CM) - 727.61 | | | | Surgic | PDT | (ICD-9-CM) - | | | | al | | Complete tear of | | | | | | right rotator cuff | | | | | | M75.41 (ICD-10-CM) - | | | | | | 726.2 (ICD-9-CM) - | | | | | | Impingement syndrome | | | | | | of right shoulder | | + +--------+ + +---+ +---+--------+ | | | | | Specia | | | l | | | Needs | | | CTU, | | | pillow | | | sling | +---+--------+ documented in this encounter Results OPERATION RECORD (03/21/2018 5:28 PM PDT) + + | Procedure Note | + + | Roberto Helm MD - 03/21/2018 5:28 PM PDT DATE OF OPERATION: 03/21/2018SURGEON: | | Roberto Helm M.D.DIRECTOR OF CAPITAL GIVING: Marley Ervin, certified physician office services assistant. An | | office services assistant is mandatory because of the nature of the surgery and the need for skilled | | retraction to safely perform this intervention. She was present and scrubbed the entire | | time and her presence decreased operative time by at least 90 minutes, decreasing risk | | of infection or other complications. PREOP DIAGNOSIS: 1.Right shoulder impingement with | | DJD AC joint. 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 Pain at | | this joint and rotator cuff tear.2.Biceps tendon tear and labral tear type | | 1.PROCEDURES: Right shoulder arthroscopy with debridement of labral tear type 1. | | Debridement of a rotator cuff tear and biceps tendon tear with debridement of the | | rotator cuff, the biceps tendon and the labrum followed by arthroscopic subacromial | | decompression and arthroscopic distal clavicle excision, and arthroscopic rotator cuff | | repair.ANESTHESIA: GeneralINDICATION: This is a 47-year-old, who has had persistent | | pain in his shoulder, rotator cuff tear on MRI, and brought to the operating room for | | shoulder arthroscopy. He understands and accepts the risks of surgery that include, but | | not limited to, need for more surgery, no improvement, worsening of his condition, | | damage to nerves and blood vessels, infection, blood clots, stiffness. He understands | | and accepts these risks and agrees to proceed.PROCEDURE IN DETAIL: The patient was | | identified, given 2 grams of Ancef, brought to the operating room. Anesthesia was | | induced. He had an interscalene block placed. He had full motion of the shoulder under | | anesthesia. He was placed in the beach-chair position. All bony prominences were well | | padded. Neck was protected at all times. The right shoulder was prepped and draped | | sterilely. A posterior portal was made 1 thumb breadth inferior and medial to the | | posterolateral border of the acromion and a stab wound was made. The blunt trocar was | | used to bring the scope in the glenohumeral joint. Anterior portal was established with | | a Wissinger camilo, exiting superior and lateral to coracoid between biceps, glenoid, and | | subscapularis. The glenohumeral joint was inspected. He had a type 1 labral tear that | | was debrided. He had full thickness rotator cuff tear that was debrided and a biceps | | tendon tear that was shallow but it was debrided. I was perhaps 1 or 2 mm in depth. | | The scope was redirected in the subacromial space, and a lateral portal was established | | 3 cm off the lateral border of the acromion. The patient had a bursectomy completed and | | a coracoacromial ligament was released. A subacromial decompression was performed by | | removing the anterior 8-10 mm of the acromion and tapering this posteriorly for 2.5 cm. | | Distal clavicle was then excised. At this time, the patient had the rotator cuff | | mobilized and a SpeedBridge was used with medial road, it was loaded anchors and | | ecd lateral row to bring the supraspinatus tear. There was a 2 x 2 cm tear back | | down with the arm at the side. I was very happy with the repair as it was very secure | | in all motion of the shoulder. Copious amounts of fluid were run through the shoulder | | until it was clear. Excess fluid was removed from the shoulder. Portals were closed | | with nylon. A sterile dressing was applied. He was taken to the recovery room in | | stable condition. There were no complications.ESTIMATED BLOOD LOSS: Less than 30 cc. | | All counts were correct prior to closure of the | | wound. Roberto Helm M.D.JAYCEE/MODLDD: 03/21/2018 | | 16:12:01DT: 03/22/2018 13:11:12Job #: [id number] | + + ARTHROSCOPIC DECOMPRESSION OF RIGHT SHOULDER WITH ROTATOR CUFF REPAIR (03/21/2018 4:06 PM PDT) + + + | Narrative | Performed At | + + + | Roberto Helm MD 03/21/2018 4:08 PM Procedure:right | | | shoulder scope with extensive debridement and sub acromial | | | decompression with distal clavicle excision and rotator cuff repair | | | Pre-Op Diagnosis:rotator cuff tear right Post-Op Diagnosis:same | | | Surgeon: MD Volodymyr Sack Sewer Machine: VIRAL Apple Type of | | | Anesthesia:gen Anesthesiologist:jacky Tubes/Drains:none EBL:<30cc | | | Complications:none Pt's Condition/Disposition:to rr stable | | + + + documented in this encounter Visit Diagnoses Not on filedocumented in this encounter Administered Medications + +--------+ +------+------+ + | Medication Order | MAR | Action | Dose | Rate | Site | | | Action | Date | | | | + +--------+ +------+------+ + | EPINEPHrine (ADRENALIN) | Given | 03/21/20 | 1 mg | | Surgical | | injection INTRAPROCEDURE PRN, | | 18 3:17 | | | Site | | Starting 03/21/18 at 1517, | | PM PDT | | | | | Until 03/21/18 at 1614 | | | | | | + +--------+ +------+------+ + + +---+ | | | + +---+ | lactated Ringers IV 500 mL, | | | intravenous, POSTPROCEDURE PRN, 1 | | | dose, Starting 03/21/18 at | | | 1407, Until 03/21/18 at 2328, | | | nausea/vomiting due to | | | dehydration | | + +---+ | | | + +---+ | lidocaine PF (XYLOCAINE MPF) 10 | | | mg/mL (1 %) injection | | | intradermal, PREPROCEDURE ONCE, 1 | | | dose, Starting 03/21/18 at | | | 0905, Until 03/21/18 at 2328 | | + +---+ | | | + +---+ + +-------+ + +---+---+ | NaCl 0.9 % irrigation | Given | 03/21/20 | 3,000 mL | | | | INTRAPROCEDURE PRN, Starting Tue | | 18 3:50 | | | | | 03/21/18 at 1517, Until Tue | | PM PDT | | | | | 03/21/18 at 1614 | | | | | | + +-------+ + +---+---+ +-------+ + +---+---+ | Given | 03/21/20 | 3,000 mL | | | | | 18 3:38 | | | | | | PM PDT | | | | +-------+ + +---+---+ | Given | 03/21/20 | 3,000 mL | | | | | 18 3:17 | | | | | | PM PDT | | | | +-------+ + +---+---+ + +---+ | | | + +---+ | NaCl flush 5 mL 5 mL, | | | intravenous, NEEDED, 1 dose, | | | Starting 03/21/18 at 0905, | | | Until 03/21/18 at 2328, line | | | patency | | + +---+ | | | + +---+ + +-------+ +------+---+---+ | ondansetron ODT (ZOFRAN ODT) | Given | 03/21/20 | 4 mg | | | | tablet 4 mg 4 mg, oral, | | 18 9:34 | | | | | NEEDED, 1 dose, Starting Tue | | AM PDT | | | | | 03/21/18 at 0905, Until Tue | | | | | | | 03/21/18 at 0934, Pre-operatively | | | | | | | upon admission to [facility] for PONV | | | | | | | prophylaxis | | | | | | + +-------+ +------+---+---+ + +---+ | | | + +---+ | ondansetron ODT (ZOFRAN ODT) | | | tablet 4 mg 4 mg, oral, EVERY 6 | | | HOURS NEEDED, Starting Tue | | | 03/21/18 at 1631, Until Tue | | | 03/21/18 at 2328, nausea/vomiting, | | | first line | | + +---+ | | | + +---+ | ondansetron ODT (ZOFRAN ODT) | | | tablet 1 dose, Starting Tue | | | 03/21/18 at 0910, Until Tue | | | 03/21/18 at 0934 | | + +---+ | | | + +---+ documented in this encounter
--- OUTSIDE RECORDS SUMMARY | ~2020-07-24 | XMS | Encounter Summary ---
Demographics + + + | Address | [address] | | | [place] [address] | + + + | Home Phone | | + + + | Preferred Language | Unknown | + + + | Marital Status | Single | + + + | Christianity Affiliation | NON | + + + | Race | White | + + + | Ethnic Group | Not or | + + + Author + + + | Author | [facility] | + + + | Organization | [facility] | + + + | Address | Unknown | + + + | Phone | Unavailable | + + + Support + + + + + | Name | Relationship | Address | Phone | + + + + + | Abdon Gross | ECON | [address] | | | [address] | | [place] | | | | | [address] | | + + + + + Care Team Providers + +------+ + | Care Weight Control Engineer Name | Role | Phone | + +------+ + | Francisco Macias | PCP | | + +------+ + Reason for Referral Consultation (Routine) + +--------+ + + + + | Status | Reason | Specialty | Diagnoses / | Referred By | Referred To | | | | | Procedures | Contact | Contact | + +--------+ + + + + | New Request | | Gastroenterol | Diagnoses | Cyndie Hunt, | Gas Endo | | | | ogy | Foreign | MD [address] | [address] | | | | | body in anus | [address] | [address] | | | | | and rectum, | [address] | [place] | | | | | initial | [place], [place] | [place], [address] | | | | | encounter | [address] | floor | | | | | Procedures | Phone: | [place], [place] | | | | | CONSULT TO | [phone] | [address] | | | | | ENDOSCOPY | Fax: | Phone: | | | | | UNIT: | [phone] | [phone] | | | | | COLONOSCOPY | | Fax: | | | | | | | [phone] | + +--------+ + + + + Reason for Visit + + + | Reason | Comments | + + + | History and physical | | | examination | | + + + | Colostomy | | + + + Intake Referral (Urgent) + +--------+ + + + + | Status | Reason | Specialty | Diagnoses / | Referred By | Referred To | | | | | Procedures | Contact | Contact | + +--------+ + + + + | Authorized | | Surgery | Diagnoses | Malik, | Gs | | | | | Colostomy | DO Nelson | Colorectal | | | | | status | [address] | [address] | | | | | [address] | [address] | | | | | | [place], [place] | [facility] | | | | | | [address] | Health and | | | | | | Phone: | [place], | | | | | | [phone] | [address] | | | | | | Fax: | [place], [place] | | | | | | [phone] | [address] | | | | | | | Phone: | | | | | | | [phone] | | | | | | | Fax: | | | | | | | [phone] | + +--------+ + + + + Encounter Details +--------+ + + + + | Date | Type | Department | Care Team | Description | +--------+ + + + + | 04/21/ | Telephone-S | Digestive Health | Cyndie Hunt MD | History and physical | | 2020 | cheduled | Center at [facility] [address] | [address] [facility] | examination; | | | | [address] [facility] | [address] [place], | Colostomy | | | | for Health and | [place] [address] | | | | | [facility], [facility] [address] | [phone] | | | | | [place], [place] | | | | | | [address] | | | | | | [phone] | | | +--------+ + + + [...] + + documented as of this encounter Progress Notes Cyndie Hunt MD - 04/21/2020 4:00 PM PDT Patient agrees to a telephone encounter for today's visit. They understand they may be resp onsible for the balance after insurance processes the claim. The visit took place via telephone with the provider located at the distant site of [facility]. T he patient stated they were located at the originating site of home and were in the state of [place] at the time of the telephone visit. The names of all additional persons participatin g in the telephone visit and their roles are: Dr. Cyndie Hunt and patient, David Michelle Gordon rosales. Time spent on the call: 36 min. 32 minute document review prior to my calling the patient The patients encounter was accomplished via a telephone call today due to COVID-19 precauti onary measures to limit the patient's unnecessary exposure. COLON AND RECTAL SURGERY History and Physical New Patient Assessment: 49 y.o. male with bronchitis, spider bite on left arm (s/p debridement x5), arthritis, ADHD former smoker gastric ulcer rectal foreign body large rectal foreign body (by other republican goers), anal exam under anesthesia, aborted transanal extraction, exploratory laparotomy, transcolonic foreign body extraction, partial colectomy, and end colostomy (02/28/19, Dr. Johnathon Erickson) rectal foreign body (by ), anal exam under anesthesia, aborted transanal extraction, exploratory laparotomy, intraperitoneal extraction of rectal foreign body via 10 cm proctotomy (primarily repaired) on 06/20/[address] Johnathon Erickson unwanted colostomy Plan: Repeat colonoscopy via ostomy and via anus. Prior polyp, removed about 2014 Assess health of rectum prior to colostomy takedown. Referral to Dr. Mak Florez (patient prefers [facility]) Gastrograffin enema via anus to assess length of rectum Patient prefers [place], [place] Patient has not and has promised not to place foreign bodies into his rectum Further recommendations to follow. Chief Complaint: 49 y.o. male with unwanted colostomy History of Present Illness: Colonoscopy (2014, [facility]) one polyp Large rectal foreign body (by other republican goers), anal exam under anesthesia, aborted trans anal extraction, exploratory laparotomy, transcolonic foreign body extraction, partial colec dawsno, and end colostomy (02/28/19, Dr. Johnathon Erickson) Rectal foreign body (by ), anal exam under anesthesia, aborted transanal extraction, ex ploratory laparotomy, intraperitoneal extraction of rectal foreign body via 10 cm proctotomy (primarily repaired) on 06/20/[address] Johnathon Erickson Office visit on 01/28/20. Referral to General Surgery for colostomy takedown. No abdominal pain. Tolerating his diet. No nausea or vomiting. No ostomy or rectal bl eeding. He empties his colostomy 1-2 times a day. He changes his appliance every 2 days. No prob lems with keeping a seal. Good preop fecal continence. No more foreign rectal bodies. He would like his ostomy mateo en down Past Medical History: Diagnosis Date ADHD Arthritis Bronchitis Gastric ulcer Rectal foreign body Spider bite 2004 left arm Past Surgical History Procedure Laterality Date Foreign body removal, rectum multiple admissions for foreign body removal. Is not sure about how many surgies Right shoulder arthroscopy with debridement of labral tear type 1. debridement of a ro tator cuff tear and biceps tendon tear with debridement of the rotator cuff, the biceps tend on and the labrum followed by arthroscopic subacromial decomp 03/21/2018 Dr Helm Large rectal foreign body, anal exam under anesthesia, aborted transanal extraction, ex ploratory laparotomy, transcolonic foreign body extraction, partial colectomy, and end colos dawson 02/28/2019 Dr. Johnathon Erickson Rectal foreign body, anal exam under anesthesia, aborted transanal extraction, explorat ory laparotomy, intraperitoneal extraction of rectal foreign body via 10 cm proctotomy (prim arily repaired) 2019 Dr. Johnathon Erickson 5 debridment surgeries on left arm for spider bite 2004 Allergies Allergen Reactions Oxycodone Pruritus Reaction: Itching Reaction: Itching Current Outpatient Medications Medication Sig albuterol 90 mcg/actuation inhalation HFA aerosol inhaler Inhale 2 puffs by mouth as ne eded. dextroamphetamine-amphetamine 30 mg oral tablet Take 30 mg by mouth once daily. naproxen 500 mg oral tablet Take 500 mg by mouth two times daily. naproxen 500 mg oral tablet ranitidine 150 mg oral tablet No current facility-administered medications for this visit. Family History Problem Relation Arthritis Mother Hepatitis Father Alcohol abuse Father Liver cancer Father Arthritis Other Colon Cancer Neg Hx Rectal cancer Neg Hx Social History Socioeconomic History Marital status: Single Spouse name: Number of children: 0 Years of education: 13 Highest education level: Not on file Occupational History Occupation: contractor/construction Employer: SEL[employer] Social Needs Financial resource strain: Not on file Food insecurity: Worry: Not on file Inability: Not on file Transportation needs: Medical: Not on file Non-medical: Not on file Tobacco Use Smoking status: Former Smoker Types: Cigarettes, Cigars Smokeless tobacco: Never Used Tobacco comment: quit cigarettes 2014, quit cigars in February 2015 Substance and Sexual Activity Alcohol use: Yes Comment: 24oz can beer nightly. Drug use: Not Currently Frequency: 2.0 times per week Comment: never IVDA/meth Sexual activity: Not Currently Lifestyle Physical activity: Days per week: Not on file Minutes per session: Not on file Stress: Not on file Relationships Social connections: Talks on phone: Not on file Gets together: Not on file Attends rastafari service: Not on file Active member of club or organization: Not on file Attends meetings of clubs or organizations: Not on file Relationship status: Not on file Other Topics Concern Not on file Social History Narrative Finished [employer] school Review of systems: stable weight. No weight loss, fevers, chills, cough, shortness of breat h, chest pain, chest pressure, or abdominal pain. See HPI. All other systems reviewed and a re negative. Physical exam: 185-190 lbs. 6'2". BMI 24.4 documented in this encounte r Plan of Treatment +--------+ + + + + | Date | Type | Specialty | Care Team | Description | +--------+ + + + + | 08/07/ | Telephone-S | Pre-operative | 4, [facility] [address] | | | 2019 | cheduled | Medicine | [address] | | | | | | [place] [address] | | +--------+ + + + + | 08/13/ | Office | Surgery | Cyndie Hunt MD | | | 2019 | Visit | | [address] | | | | | | [address] [place], | | | | | | [place] [address] | | | | | | [phone] | | | | | | | [...] | | | | | [address] [place], | | | | | | [place] [address] | | | | | | [phone] | | | | | | | | +--------+ + + + + + +---------+--------+ + + | Name | Type | Priori | Associated Diagnoses | Order Schedule | | | | ty | | | + +---------+--------+ + + | X-RAY COLON BARIUM | Imaging | Routin | Foreign body in | Expected: | | ENEMA W AIR WWO KUB | | e | anus and rectum, | 04/21/2020, Expires: | | | | | initial encounter | 05/22/2021 | + +---------+--------+ + + documented as of this encounter Visit Diagnoses + + | Diagnosis | + + | Foreign body in anus and rectum, initial encounter - Primary | + + | Colostomy care (HCC) Attention to colostomy | + + documented in this encounter
--- OUTSIDE RECORDS SUMMARY | ~2020-07-24 | XMS | Encounter Summary ---
Demographics + + + | Address | [address] | | | [place] [address] | + + + | Home Phone | | + + + | Preferred Language | Unknown | + + + | Marital Status | Single | + + + | Rastafari Affiliation | NON | + + + | Race | White | + + + | Ethnic Group | Not or | + + + Author + + + | Author | [facility] | + + + | Organization | [facility] | + + + | [...] [place] | | | | | [address] | | + + + + + Care Team Providers + +------+ + | Care Flat Lock Machine Operator Name | Role | Phone | + +------+ + | No Pcp Per Patient | PCP | Unavailable | + +------+ + Reason for Visit + +--------+ + | Reason | Onset | Comments | | | Date | | + +--------+ + | Care Coordination | 11/30/ | | | | 2017 | | + +--------+ + Encounter Details +--------+ + + + + | Date | Type | Department | Care Team | Description | +--------+ + + + + | 11/30/ | Telephone | [facility] | Marley Apple | Care Coordination | | 2018 | | Sports Medicine & | VIRAL Duran [address] | | | | | Orthopaedic Surgery | [facility] | | | | | [address] [facility] | [place], [place] | | | | | [place], [place] | [address] | | | | | [address] | [phone] | | | | | [phone] | | | +--------+ + + + [...] this encounter Miscellaneous Notes Telephone Encounter - Meri Hartmann MA - 03/20/2018 4:56 PM PDTSpoke with patient reg arding surgery on Tuesday03/21/18. Confirmed check in time of 9:00a.m. and reminded nothing by mouth after midnight. Patient understands and had no questions at this time. elephone Encounter - Meri Hartmann MA - 03/02/2018 2:03 PM PDTConfirmed with patient he has secured a ri de for all appointments. Reviewed and confirmed all dates and times again, and current [facility] k in time for surgery. Patient understands this may change but I will call him the day befo re to give him a final time. Patient understands and will call me if he wants to check in a bout it sooner than that. P M PDTTelephone Encounter - Meri Hartmann MA - 02/27/2018 8:47 AM PDTLVM for patient to call me back so I can confirm he was able to get everything set up for 03/21/18.Electronical ly signed by Meri Hartmann MA at 02/27/2018 8:48 AM PDTTelephone Afshin - Meri Hartmann MA - 02/06/2018 11:38 AM PDTPatient would like to look at 03/21/18. He understands Dr. Helm is going to be doing whatever he needs to to fix his shoulder, even if that invo lves a rotator cuff repair. He would like to look at 03/21/18, all necessary appointments beebe ve been scheduled. Patient is going to coordinate with the [employer] to make sure he can make all these appointments and let me know. elephone Afshin - Ema Linares - 02/06/2018 11:30 AM PDTPatient called back requesting to speak to Sx coor dinator to discuss the Sx dates and times. Please review. Thanks elephone Encounter - Meri Hartmann MA - 8 10:42 AM PDTPatient called back, his current number is correct, but is "pay as you go" and he had to load it with more minutes. I gave him available surgery dates for March and told h im if he gets back to me quickly, we can probably get him scheduled on any one of those date s. Patient is going to contact his ride and get back to me as soon as he can. elephone Encounter - Alex Hartmann MA - 02/06/2018 10:39 AM PDTLVM for patient to call me back elephone Encounter - Callie Magaña - 02/06 10:24 AM PDTPatient would like to speak to SX Coordinator. elephone Encounter - Meri Hartmann MA - 018 2:22 PM PDT Marley Apple PA-C You 6 hours ago (7:49 AM) If we do surgery, it will be to fix whatever is causing pain in his shoulder, including a R C tear. Not sure how we can get around that.. (Routing comment) Per Marley Apple PA-C, as they are fairly open in March the patient can pick whatever day is available, outside of 03/16/18. I am not able to call patient as the new number he ray d me on yesterday, and he said to change his contact number to, says it is not in service. I have mailed a letter to the patient explaining the message above, asking him to give me a call. elephone Melissa story - Meri Hartmann MA - 01/30/2018 9:39 AM PDTPatient called in stating he hasn't be en able to get another job because everyone wants him to get his shoulder fixed. 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 TTelephone Encounter - Meri Hartmann MA - 12/02/2017 4:24 PM PSTSpoke with patient who says that his shoulder has "healed on it's own before. 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 I would like to finish up my current job, get a job where I can take it easy on my shoulder, and rest up, along with physical th erapy, and see if I can put surgery off." Patient lives in [place] and would like to go to [facility] in [place] (#[phone] fax#[phone]) but will be working in [facility] for about another month or so. So that the order does not I suggested he give me a call when he is getting close to starting PT and we can fax the order over then. Patient understands. Telephone Encounter - Meri Hartmann MA - 12/01/2017 4:30 PM PST Marley Apple PA-C You Yesterday (2:22 PM) We ordered PT for him in the past. I can definitely order it again if he does not want to p roceed with surgery. (Routing comment) LVM for patient to call back 4: 31 PM PSTTelephone Encounter - Meri Hartmann MA - 11/30/2017 1:42 PM PSTMarley, please advise. Would PT be beneficial for this patient? I am happy to speak with him, just let m e know. Thanks! ele phone Encounter - Yung Dill - 11/30/2017 1:28 PM PSTReason for call: Pt would like a kianna l back concerning Surgery Physician: Marley Problem: Pt wants to know if there is alternative (physical Therapy) he can do rather than surgery. Right shoulder rotator cuff tear Right shoulder impingement. Comments: Please call him back and he really wanted to talk w/ Marley. Last Ortho appt: 10/28/2017 Next Ortho appt: No future appointments scheduled in Orthopedics. documented in this encounter Plan of Treatment +--------+ + + + + | Date | Type | Specialty | Care Team | Description | +--------+ + + + + | 08/07/ | Telephone-S | Pre-operative | 4, [facility] [address] | | | 2019 | cheduled | Medicine | [address] | | | | | | [place] [address] | | +--------+ + + + + | 08/13/ | Office | Surgery | Cyndie Hunt MD | | | 2019 | Visit | | [address] | | | | | | [address] [place] [facility] | | | | | | [place] [address] | | | | | | [phone] | | | | | | | [...] | | | | | [address] [place], | | | | | | [place] [address] | | | | | | [phone] | | | | | | | | +--------+ + + + + documented as of this encounter Visit Diagnoses Not on filedocumented in this encounter
--- OUTSIDE RECORDS SUMMARY | ~2020-07-24 | XMS | Encounter Summary ---
Demographics + + + | Address | [address] | | | [place] [address] | + + + | Home Phone | | + + + | Preferred Language | Unknown | + + + | Marital Status | Single | + + + | Adventism Affiliation | NON | + + + | Race | White | + + + | Ethnic Group | Not or | + + + Author + + + | Author | [facility] | + + + | Organization | [facility] | + [...] [place] | | | | | [address] | | + + + + + Care Team Providers + +------+ + | Care Funeral Prearrangement Counselor Name | Role | Phone | + +------+ + | No Pcp Per Patient | PCP | Unavailable | + +------+ + Encounter Details +--------+ + + + + | Date | Type | Department | Care Team | Description | +--------+ + + + + | 06/21/ | Document-Sc | [facility] | Beni Helm, | | | 2017 | anned | Sports Medicine & | MD [address] | | | | | Orthopaedic Surgery | [place] | | | | | [address] | [address] | | | | | [place] | [phone] | | | | | [address] | | | | | | [phone] | | | +--------+ + + + [...] | Telephone-S | Pre-operative | 4, [facility] [address] | | | 2019 | cheduled | Medicine | [address] | | | | | | [place] [address] | | +--------+ + + + + | 08/13/ | Office | Surgery | Cyndie Hunt MD | | | 2019 | Visit | | [address] | | | | | | [place] | | | | | | [place] [address] | | | | | | [phone] | | | | | | | [...] | | | | | [address] [place], | | | | | | [place] [address] | | | | | | [phone] | | | | | | | | +--------+ + + + + documented as of this encounter Visit Diagnoses Not on filedocumented in this encounter"
--- OUTSIDE RECORDS SUMMARY | ~2020-07-24 | XMS | Encounter Summary ---
Demographics + + + | Address | [address] | | | [place] [address] | + + + | Home Phone | | + + + | Preferred Language | Unknown | + + + | Marital Status | Single | + + + | Tenriism Affiliation | NON | + + + [...] [place] | | | | | [address] | | + + + + + Care Team Providers + +------+ + | Care Ambulatory Nurse Name | Role | Phone | + +------+ + | No Pcp Per Patient | PCP | Unavailable | + +------+ + Encounter Details +--------+ + + + + | Date | Type | Department | Care Team | Description | +--------+ + + + + | 04/28/ | Document-Sc | [facility] | Beni Helm, | | | 2017 | anned | Sports Medicine & | MD [address] | | | | | Orthopaedic Surgery | [address] [place] | | | | | [address] | [address] | | | | | [place] | [phone] | | | | | [address] | | | | | | [phone] | | | +--------+ + + + [...] | Telephone-S | Pre-operative | 4, [facility] [address] | | | 2019 | cheduled | Medicine | [address] | | | | | | [place] [address] | | +--------+ + + + + | 08/13/ | Office | Surgery | Cyndie Hunt MD | | | 2019 | Visit | | [address] | | | | | | [place] | | | | | | [place] [address] | | | | | | [phone] | | | | | | | [...] | | | | | [address] [place], | | | | | | [place] [address] | | | | | | [phone] | | | | | | | | +--------+ + + + + documented as of this encounter Visit Diagnoses Not on filedocumented in this encounter"
--- OUTSIDE RECORDS SUMMARY | ~2020-07-24 | XMS | Encounter Summary ---
Demographics + + + | Address | [address] | | | [place] [address] | + + + | Home Phone | | + + + | Preferred Language | Unknown | + + + | Marital Status | Single | + + + | Jew Affiliation | NON | + + + | Race | White | + + + | Ethnic Group | Not or | + + + Author + + + | Author | [facility] | + + + | Organization | [facility] | + + + | Address | Unknown | + + + | Phone | Unavailable | + + + Support + + + + + | Name | Relationship | Address | Phone | + + + + + | Abdon Gross | ECON | [address] | | | [address] | | [place] | | | | | [address] | | + + + + + Care Team Providers + +------+ + | Care Public Relations Representative Name | Role | Phone | + +------+ + | Francisco Macias | PCP | | + +------+ + Encounter Details +--------+ + + + + | Date | Type | Department | Care Team | Description | +--------+ + + + + | 07/01/ | Abstract | Digestive Health | Cyndie Hunt MD | | | 2020 | | [place] [address] | [address] | | | | | [address] [facility] | [address] [place], | | | | | for Health and | [place] [address] | | | | | [facility], [place] [address] | [phone] | | | | | [place], [place] | | | | | | [address] | | | | | | [phone] | | | +--------+ + + + [...] | Telephone-S | Pre-operative | 4, [facility] [address] | | | 2019 | cheduled | Medicine | [address] | | | | | | [place] [address] | | +--------+ + + + + | 08/13/ | Office | Surgery | Cyndie Hunt MD | | | 2019 | Visit | | [address] | | | | | | [place], | | | | | | [place] [address] | | | | | | [phone] | | | | | | | [...] | | | | | | [place] [address] | | | | | | [phone] | | | | | | | | +--------+ + + + + documented as of this encounter Visit Diagnoses Not on filedocumented in this encounter"
--- OUTSIDE RECORDS SUMMARY | ~2020-07-24 | XMS | Encounter Summary ---
Demographics + + + | Address | [address] | | | [place] [address] | + + + | Home Phone | | + + + | Preferred Language | Unknown | + + + | Marital Status | Single | + + + | Druze Affiliation | NON | + + + | Race | White | + + + | Ethnic Group | Not or | + + + Author + + + | Author | [facility] | + + + | Organization | [facility] | + + + | [...] [place] | | | | | [address] | | + + + + + Care Team Providers + +------+ + | Care Extrusion Utility Worker Name | Role | Phone | + +------+ + | No Pcp Per Patient | PCP | Unavailable | + +------+ + Encounter Details +--------+ + + + + | Date | Type | Department | Care Team | Description | +--------+ + + + + | 07/19/ | Document-Sc | UNKNOWN DEPARTMENT | Unknown . | | | 2017 | anned | [address] | | | | | | [address] | | | | | | [place], [place] | | | | | | [address] | | | +--------+ + + + [...] 08/07/ | Telephone-S | Pre-operative | 4, [facility] Coal Equipment Operator [address] | | | 2019 | cheduled | Medicine | [address] | | | | | | [place] [address] | | +--------+ + + + + | 08/13/ | Office | Surgery | Cyndie Hunt MD | | | 2019 | Visit | | [address] | | | | | | [place] [place], | | | | | | [place] [address] | | | | | | [phone] | | | | | | | [...] | | | | | [place] [place], | | | | | | [place] [address] | | | | | | [phone] | | | | | | | | +--------+ + + + + documented as of this encounter Procedures + +--------+ + + + | Procedure Name | Priori | Date/Time | Associated Diagnosis | Comments | | | ty | | | | + +--------+ + + + | RADIOLOGY | | 07/19/2017 | | Results for this | | | | 12:00 AM | | procedure are in the | | | | PDT | | results section. | + +--------+ + + + documented in this encounter Results RADIOLOGY (07/19/2017 12:00 AM PDT) + + + | Narrative | Performed At | + + + | | | + + + documented in this encounter Visit Diagnoses Not on filedocumented in this encounter"
--- OUTSIDE RECORDS SUMMARY | ~2020-07-24 | XMS | Encounter Summary ---
Demographics + + + | Address | [address] | | | [place] [address] | + + + | Home Phone | | + + + | Preferred Language | Unknown | + + + | Marital Status | Single | + + + | Moravian Affiliation | NON | + + + | Race | White | + + + | Ethnic Group | Not or | + + + Author + + + | Author | [facility] | + + + | Organization | [facility] | + + + | Address | Unknown | + + + | Phone | Unavailable | + + + Support + + + + + | Name | Relationship | Address | Phone | + + + + + | Abdon Gross | ECON | [address] | | | [address] | | [place] | | | | | [address] | | + + + + + Care Team Providers + +------+ + | Care Toy Parts Former Supervisor Name | Role | Phone | + +------+ + | No Pcp Per Patient | PCP | Unavailable | + +------+ + Reason for Referral Consultation (Routine) +--------+---------+ + + + + | Status | Reason | Specialty | Diagnoses / | Referred By | Referred To | | | | | Procedures | Contact | Contact | +--------+---------+ + + + + | Closed | Other | | Diagnoses | Mouna, | [facility] | | | | | Low back | Alber Stone MD | [address] | | | | | pain, | [address] | The | | | | | unspecified | [place] | [place] | | | | | back pain | [facility] | [address] | | | | | laterality, | [place] | | | | | | unspecified | [address] | | | | | | chronicity, | Phone: | | | | | | with | [phone] | | | | | | sciatica | Fax: | | | | | | presence | [phone] | | | | | | unspecified | | | | | | | Procedures | | | | | | | CONSULT TO | | | | | | | PAIN | | | | | | | MANAGEMENT | | | +--------+---------+ + + + + Reason for Visit + +--------+ + | Reason | Onset | Comments | | | Date | | + +--------+ + | Imaging Review | 07/20/ | | | | 2017 | | + +--------+ + Encounter Details +--------+ + + + + | Date | Type | Department | Care Team | Description | +--------+ + + + + | 07/20/ | Telephone | Orthopaedics at | Alber Freire, | Imaging Review | | 2017 | | Center for [facility] | [address] | | | | | and Healing [address] | | | | | [facility] | [place], [place] | | | | | Health and Healing, | [address] | | | | | [facility] | [phone] | | | | | Floor [place], [place] | | | | | | [address] | | | | | | [phone] | | | +--------+ + + + [...] documented as of this encounter Miscellaneous Notes Addendum Note - Ruth Jerome MA - 07/27/2017 8:59 AM PDT Addended by: RUTH JEROME MA on: 07/27/2017 08:59 AM Modules accepted: Orders elephone Encounter - Ruth Jerome MA - 07/27/2017 8:58 AM PDTCalled and spoke with patient and let him know albertina t per Dr. Freire he would like him to have an L5-S1 transforaminal injection. Pt stated un derstanding, referral placed. elephone Encounter - Ruth Womack MA - 07/20/2017 9:48 AM PDTFaxed imaging request to [facility] . Will review imaging with Dr. Freire next Tuesday when he is in clinic.Electronically sig panfilo by Ruth Jerome MA at 07/20/2017 9:49 AM PDTTelephone Encounter - Aleta Koehler M A - 07/20/2017 9:35 AM PDTWhere did you have the imaging done? [facility] What imaging did you have done? L MRI What date did you have the imaging done? 07/2017 documented in this encounter Plan of Treatment +--------+ + + + + | Date | Type | Specialty | Care Team | Description | +--------+ + + + + | 08/07/ | Telephone-S | Pre-operative | 4, [facility] Brim Pouncer Machine Operator [address] | | | 2019 | cheduled | Medicine | [address] | | | | | | [place] [address] | | +--------+ + + + + | 08/13/ | Office | Surgery | Cyndie Hunt MD | | | 2019 | Visit | | [address] | | | | | | [address] [place], | | | | | | [place] [address] | | | | | | [phone] | | | | | | | [...] | | | | | [address] [facility] | | | | | | [place] [address] | | | | | | [phone] | | | | | | | | +--------+ + + + + documented as of this encounter Visit Diagnoses + + | Diagnosis | + + | Low back pain, unspecified back pain laterality, unspecified chronicity, with sciatica | | presence unspecified - Primary | + + documented in this encounter"
--- OUTSIDE RECORDS SUMMARY | ~2020-07-24 | XMS | Encounter Summary ---
Demographics + + + | Address | [address] | | | [place] [address] | + + + | Home Phone | | + + + | Preferred Language | Unknown | + + + | Marital Status | Single | + + + | Jehovah'S Witness Affiliation | NON | + + + | Race | White | + + + | Ethnic Group | Not or | + + + Author + + + | Author | [facility] | + + + | Organization | [facility] | + + + [...] [place] | | | | | [address] | | + + + + + Care Team Providers + +------+ + | Care Behavioral Health Case Manager Name | Role | Phone | + +------+ + | No Pcp Per Patient | PCP | Unavailable | + +------+ + Encounter Details +--------+ + + + + | Date | Type | Department | Care Team | Description | +--------+ + + + + | 04/22/ | Document-Sc | [facility] | Beni Helm, | | | 2017 | anned | Sports Medicine & | MD [address] | | | | | Orthopaedic Surgery | [place] | | | | | [address] | [address] | | | | | [place] | [phone] | | | | | [address] | | | | | | [phone] | | | +--------+ + + + [...] | Telephone-S | Pre-operative | 4, [facility] T[facility] [address] | | | 2019 | cheduled | Medicine | [address] | | | | | | [place] [address] | | +--------+ + + + + | 08/13/ | Office | Surgery | Cyndie Hunt MD | | | 2019 | Visit | | [address] | | | | | | [place] | | | | | | [place] [address] | | | | | | [phone] | | | | | | | | +--------+ + + + + | 08/14/ | Procedure | Surgery | | | | 2019 | Pass | | | | +--------+ + + + + | 09/10/ | Telephone-S | Surgery | Cyndie Hunt MD | | | 2019 | chebarndon | | [address] | | | | | | [place], | | | | | | [place] [address] | | | | | | [phone] | | | | | | | | +--------+ + + + + documented as of this encounter Visit Diagnoses Not on filedocumented in this encounter"
--- OUTSIDE RECORDS SUMMARY | ~2020-07-24 | XMS | Encounter Summary ---
Demographics + + + | Address | [address] | | | [place] [address] | + + + | Home Phone | | + + + | Preferred Language | Unknown | + + + | Marital Status | Single | + + + | Buddhist Affiliation | NON | + + + | Race | White | + + + | Ethnic Group | Not or | + + + Author + + + | Author | [facility] | + + + | Organization | [facility] | + + + | [...] [place] | | | | | [address] | | + + + + + Care Team Providers + +------+ + | Care Candy Starch Mold Printer Name | Role | Phone | + +------+ + | No Pcp Per Patient | PCP | Unavailable | + +------+ + Encounter Details +--------+ + + + + | Date | Type | Department | Care Team | Description | +--------+ + + + + | 05/17/ | Document-Sc | [facility] | Alber Freire, | | | 2017 | anned | Sports Medicine & | [address] | | | | | Orthopaedic Surgery | [address] | | | | | [address] | [place], [place] | | | | | [place] | [address] | | | | | [address] | [phone] | | | | | [phone] | | | +--------+ + + + [...] | Telephone-S | Pre-operative | 4, [facility] Rubber Chemist [address] | | | 2019 | cheduled | Medicine | [address] | | | | | | [place] [address] | | +--------+ + + + + | 08/13/ | Office | Surgery | Cyndie Hunt MD | | | 2019 | Visit | | [address] | | | | | | [place] | | | | | | [place] [address] | | | | | | [phone] | | | | | | | [...] | | | | | [address] [place], | | | | | | [place] [address] | | | | | | [phone] | | | | | | | | +--------+ + + + + documented as of this encounter Visit Diagnoses Not on filedocumented in this encounter"
--- OUTSIDE RECORDS SUMMARY | ~2020-07-24 | XMS | Encounter Summary ---
Demographics + + + | Address | [address] | | | [place] [address] | + + + | Home Phone | | + + + | Preferred Language | Unknown | + + + | Marital Status | Single | + + + | Protestant Affiliation | NON | + + + [...] [place] | | | | | [address] | | + + + + + Care Team Providers + +------+ + | Care Rhinologist Name | Role | Phone | + [...] | | | | Rd | [place] [address] | | | | | Impingement | [place], [place] | Phone: | | | | | syndrome of | [address] | [phone] | | | | | right | Phone: | Fax: | | | | | shoulder | [phone] | [phone] | | | | | Procedures | Fax: | | | | | | REQUEST TO | [phone] | | | | | | SURGERY | | | | | | | EQUALIZING SAW OPERATOR | | | | | | | DC SHLDR | | | | | | | ARTHROSCOP,S | | | | | | | URG,W/ROTAT | | | | | | | CUFF REPR | | | | | | | DC SHLDR | | | | | | | ARTHROSCOP,P | | | | | | | ART | | | | | | | ACROMIOPLAS | | | | | | | W/CORACOACRO | | | | | | | M DC SHLDR | | | | | | | ARTHROSCOP,S | | | | | | | URG,DIS | | | | | | | CLAVICULECTO | | | | | | | MY | | | +--------+--------+ + + + + Encounter Details +--------+ + + + + | Date | Type | Department | Care Team | Description | +--------+ + + + + | 03/21/ | Hospital | Same Day Surgery | Roberto Helm, | | | 2017 | Encounter | at [facility] | MD [address] | | | | | [address] | [place], [place] | | | | | [place] | [address] | | | | | [address] | [phone] | | | | | [phone] | | | +--------+ + + + [...] a 46 y.o. year old male from [place] who returns to the office today for [...] OF OPERATION: 03/21/2018 SURGEON: Roberto Helm M.D. RETAIL WAREHOUSE SUPERVISOR: Marley Ervin, certified physician assistant infant teacher. An assistant infant teacher is mandatory becau se of the nature [...] medial road, it was loaded anchors and planting material unloader lateral row to bring the supraspinatus tear. [...] of the wo und. Roberto Helm M.D. JAYCEE/MODL /[id number] signed by Roberto Helm MD at 03/22/2018 2:33 PM PDTChachaardRoberto maya MD - 03/21/2018 4:06 PM PDTAssociated Order(s): ARTHROSCOPIC DECOMPRE SSION OF RIGHT SHOULDER WITH ROTATOR CUFF REPAIRProcedure(s): ARTHROSCOPIC DECOMPRESSION OF RIGHT SHOULDER WITH ROTATOR CUFF REPAIRProcedure:right shoulder scope with extensive debride ment and sub acromial decompression with distal clavicle excision and rotator cuff repair Pre-Op Diagnosis:rotator cuff tear right Post-Op Diagnosis:same Surgeon: MD Volodymyr Carbon Accountant: VIRAL Apple Type of Anesthesia:gen Anesthesiologist:rico Tubes/Drains:none [...] tructions, all questions answered. Educated patient on CMS. Patient states understanding to instructions. documented in this encounter Plan of Treatment +--------+ + + + + | Date | Type | Specialty | Care Team | Description | +--------+ + + + + | 08/07/ | Telephone-S | Pre-operative | 4, [facility] Pit Manager [address] | | | 2019 | cheduled | Medicine | [address] | | | | | | [place] [address] | | +--------+ + + + + | 08/13/ | Office | Surgery | Cyndie Hunt MD | | | 2019 | Visit | | [address] | | | | | | [place] [facility] | | | | | | [place] [address] | | | | | | [phone] | | | | | | | [...] | | | | | [place], | | | | | | [place] [address] | | | | | | [phone] | | | | | | | [...] OF OPERATION: 03/21/2018SURGEON: | | Roberto Helm M.D.RETAIL WAREHOUSE SUPERVISOR: Marley Ervin, certified physician assistant infant teacher. An | | assistant infant teacher is mandatory because of the nature of [...] it was loaded anchors and | | planting material unloader lateral row to bring the supraspinatus tear. [...] 03/21/2018 | | 16:12:01DT: 03/22/2018 13:11:12Job #: [id number] | + + ARTHROSCOPIC DECOMPRESSION OF RIGHT [...] Diagnosis:same | | | Surgeon: MD Volodymyr Carbon Accountant: VIRAL Apple Type of | | | Anesthesia:gen Anesthesiologist:rico Tubes/Drains:none EBL:<30cc | | | Complications:none Pt's Condition/Disposition:to rr stable | | + + + documented in this encounter Visit Diagnoses + + | Diagnosis | + + | Status post rotator cuff repair - Primary Other postprocedural status | + + documented in this encounter Administered Medications + +--------+---------+------+------+------+ | Medication Order | MAR | Action | Dose | Rate | Site | | | Action | Date | | | | + +--------+---------+------+------+------+ + +---+ | lactated Ringers IV 500 [...] | | | | upon admission to [facility] for [facility]ON[facility] | | | | | [...]
--- OUTSIDE RECORDS SUMMARY | ~2020-07-24 | XMS | Encounter Summary ---
Demographics + + + | Address | [address] | | | [place] [address] | + + + | Home Phone | | + + + | Preferred Language | Unknown | + + + | Marital Status | Single | + + + | Buddhism Affiliation | NON | + + + | Race | White | + + + | Ethnic Group | Not or | + + + Author + + + | Author | [facility] | + + + | Organization | [facility] | + + + | Address | Unknown | + + + | Phone | Unavailable | + + + Support + + + + + | Name | Relationship | Address | Phone | + + + + + | Abdon Gross | ECON | [address] | | | [address] | | [place] | | | | | [address] | | + + + + + Care Team Providers + +------+ + | Care Master [place] Name | Role | Phone | + +------+ + | Francisco Macias | PCP | | + +------+ + Encounter Details +--------+ + + + + | Date | Type | Department | Care Team | Description | +--------+ + + + + | 05/21/ | Telephone | Dig[facility]ive Health | Cyndie Hunt MD | | | 2019 | | [place] [address] [address] | [address] | | | | | [facility] | [place], | | | | | for Health and | [place] [address] | | | | | [facility], [place] [address] | [phone] | | | | | [place], [place] | | | | | | [address] | | | | | | [phone] | | | +--------+ + + + [...] +---+---+---+ + + | Comments: quit cigarettes 2015, quit cigars in February 2015 | + [...] this encounter Miscellaneous Notes Telephone Encounter - Ofe Thomason MA - 06/30/2020 1:58 PM PDTRefer to TE on . elephone Encounter - Ofe Thomason MA - 05/22/2020 10:[address]Andrew Ludwig office , pt only had consult on 05/19. Procedure scheduled for 06/25/20. elephone Encounter - Sepideh Thomason am, MA - 05/21/2020 3:06 PM PDT . Ofe Villaseñor MA P Colorectal Triage Pool Request Colonoscopy with office on 05/19. documented in this encounter Plan of Treatment +--------+ + + + + | Date | Type | Specialty | Care Team | Description | +--------+ + + + + | 08/07/ | Telephone-S | Pre-operative | 4, [facility] Drill Press Hand [address] | | | 2019 | cheduled | Medicine | [address] | | | | | | [place] [address] | | +--------+ + + + + | 08/13/ | Office | Surgery | Cyndie Hunt MD | | | 2019 | Visit | | [address] | | | | | | [place] [facility] | | | | | | [place] [address] | | | | | | [phone] | | | | | | | [...] | | | | | [place], | | | | | | [place] [address] | | | | | | [phone] | | | | | | | | +--------+ + + + + documented as of this encounter Visit Diagnoses Not on filedocumented in this encounter"
--- OUTSIDE RECORDS SUMMARY | ~2020-07-24 | XMS | Encounter Summary ---
Demographics + + + | Address | [address] | | | [place] [address] | + + + | Home Phone | | + + + | Preferred Language | Unknown | + + + | Marital Status | Single | + + + | Confucianist Affiliation | NON | + + + | Race | White | + + + | Ethnic Group | Not or | + + + Author + + + | Author | [facility] | + + + | Organization | [facility] | + + + | [...] [place] | | | | | [address] | | + + + + + Care Team Providers + +------+ + | Care Industrial Eng Name | Role | Phone | + +------+ + | No Pcp Per Patient | PCP | Unavailable | + +------+ + Encounter Details +--------+ + + + + | Date | Type | Department | Care Team | Description | +--------+ + + + + | 03/16/ | Document-Sc | [facility] | Unknown . | | | 2017 | anned | Sports Medicine & | | | | | | Orthopaedic Surgery | | | | | | [address] | | | | | | [place] | | | | | | [address] | | | | | | [phone] | | | +--------+ + + + [...] | Telephone-S | Pre-operative | 4, [facility] Instrument Sterilizer [address] | | | 2019 | cheduled | Medicine | [address] | | | | | | [place] [address] | | +--------+ + + + + | 08/13/ | Office | Surgery | Cyndie Hunt MD | | | 2019 | Visit | | [address] | | | | | | [place] [place], | | | | | | [place] [address] | | | | | | [phone] | | | | | | | [...] | | | | | [place], | | | | | | [place] [address] | | | | | | [phone] | | | | | | | | +--------+ + + + + documented as of this encounter Visit Diagnoses Not on filedocumented in this encounter"
--- OUTSIDE RECORDS SUMMARY | ~2020-07-24 | XMS | Encounter Summary ---
Demographics + + + | Address | [address] | | | [place] [address] | + + + | Home Phone | | + + + | Preferred Language | Unknown | + + + | Marital Status | Single | + + + | Evangelical Affiliation | NON | + + + | Race | White | + + + | Ethnic Group | Not or | + + + Author + + + | Author | [facility] | + + + | Organization | [facility] | + + + [...] [place] | | | | | [address] | | + + + + + Care Team Providers + +------+ + | Care Therapy Administrative Assistant Name | Role | Phone | + +------+ + | Francisco Macias | PCP | | + +------+ + Reason for Visit + +--------+ + | Reason | Onset | Comments | | | Date | | + +--------+ + | Needs To Reschedule | 05/18/ | | | Apppointment | 2018 | | + +--------+ + Encounter Details +--------+ + + + + | Date | Type | Department | Care Team | Description | +--------+ + + + + | 05/18/ | Telephone | [facility] | Marley Apple | Needs To Reschedule | | 2017 | | Sports Medicine & | VIRAL Duran [address] [facility] | Apppointment | | | | Orthopaedic Surgery | [address] | | | | | [address] | [place], [place] | | | | | [place], [place] | [address] | | | | | [address] | [phone] | | | | | [phone] | | | +--------+ + + + [...] this encounter Miscellaneous Notes Telephone Encounter - Ema Linares - 05/22/2018 8:43 AM PDTCalled pt and relayed message below. Thanks elephone Encking Negro Ema Linares - 05/18/2018 11:41 AM PDTPt called stating he hasn't started PT and wa sn't sure if he should r/s his appt on 06/05/18. Please review and advise. Thanks Electronic ally signed by Ema Linares at 05/18/2018 11:42 AM PDTdocumented in this encounter Plan of Treatment +--------+ + + + + | Date | Type | Specialty | Care Team | Description | +--------+ + + + + | 08/07/ | Telephone-S | Pre-operative | 4, [facility] Karate Teacher [address] | | | 2019 | cheduled | Medicine | [address] | | | | | | [place] [address] | | +--------+ + + + + | 08/13/ | Office | Surgery | Cyndie Hunt MD | | | 2019 | Visit | | [address] | | | | | | [place], | | | | | | [place] [address] | | | | | | [phone] | | | | | | | [...] | | | | | [address] [place], | | | | | | [place] [address] | | | | | | [phone] | | | | | | | | +--------+ + + + + documented as of this encounter Visit Diagnoses Not on filedocumented in this encounter"
--- OUTSIDE RECORDS SUMMARY | ~2020-07-24 | XMS | Encounter Summary ---
Demographics + + + | Address | [address] | | | [place] [address] | + + + | Home Phone | | + + + | Preferred Language | Unknown | + + + | Marital Status | Single | + + + | Pentecostalism Affiliation | NON | + + + [...] [place] | | | | | [address] | | + + + + + Care Team Providers + +------+ + | Care Hired Worker Name | Role | Phone | + +------+ + | Francisco Macias | PCP | | + +------+ + Reason for Visit + +--------+ + | Reason | Onset | Comments | | | Date | | + +--------+ + | Medical Records | 05/27/ | | | Review | 2020 | | + +--------+ + Encounter Details +--------+ + + + + | Date | Type | Department | Care Team | Description | +--------+ + + + + | 05/27/ | Abstract | Digestive Health | Cyndie Hunt MD | Medical Records | | 2020 | | Center at [facility] [address] | [address] [facility] | Review | | | | [address] [facility] | [address] [place], | | | | | [facility] and | [place] [address] | | | | | [facility] | [phone] | | | | | [place], [place] | | | | | | [address] | | | | | | [phone] | | | +--------+ + + + [...] 08/07/ | Telephone-S | Pre-operative | 4, [facility] Internet Marketing Strategist [address] | | | 2019 | cheduled | Medicine | [address] | | | | | | [place] [address] | | +--------+ + + + + | 08/13/ | Office | Surgery | Cyndie Hunt MD | | | 2019 | Visit | | [address] | | | | | | [address] [place], | | | | | | [place] [address] | | | | | | [phone] | | | | | | | [...] | | | | | [address] [place], | | | | | | [place] [address] | | | | | | [phone] | | | | | | | | +--------+ + + + + documented as of this encounter Visit Diagnoses Not on filedocumented in this encounter"
--- OUTSIDE RECORDS SUMMARY | ~2020-07-24 | XMS | Encounter Summary ---
Demographics + + + | Address | [address] | | | [place] [address] | + + + | Home Phone | | + + + | Preferred Language | Unknown | + + + | Marital Status | Single | + + + | Rastafarian Affiliation | NON | + + + | Race | White | + + + | Ethnic Group | Not or | + + + Author + + + | Author | [facility] | + + + | Organization | [facility] | + + + | Address | Unknown | + + + | Phone | Unavailable | + + + Support + + + + + | Name | Relationship | Address | Phone | + + + + + | Abdon Gross | ECON | [address] | | | [address] | | [place] | | | | | [address] | | + + + + + Care Team Providers + +------+ + | Care Typewriter Assembler Name | Role | Phone | + +------+ + | Francisco Macias | PCP | | + +------+ + Encounter Details +--------+ + + + + | Date | Type | Department | Care Team | Description | +--------+ + + + + | 05/26/ | Telephone | Digestive Health | Cyndie Hunt MD | | | 2019 | | [place] [address] | [address] | | | | | [facility] | [place], | | | | | for Health and | [place] [address] | | | | | [facility], [place] [address] | [phone] | | | | | [place], [place] | | | | | | [address] | | | | | | [phone] | | | +--------+ + + + [...] Telephone Encounter - Ofe Thomason MA - 05/27/2020 9:55 AM PDTRequested Gastro graffin Study from [facility].Electronically signed by Ofe Villaseñor MA at 9:56 AM PDTTelephone Encounter - Ofe Thomason MA - 05/26/2020 7:59 AM PDT [facility] Colorectal Triage Pool Request Xray Gastrografin study at [facility] on 05/23. documented in this encounter Plan of Treatment +--------+ + + + + | Date | Type | Specialty | Care Team | Description | +--------+ + + + + | 08/07/ | Telephone-S | Pre-operative | 4, [facility] [address] | | | 2019 | cheduled | Medicine | [address] | | | | | | [place] [address] | | +--------+ + + + + | 08/13/ | Office | Surgery | Cyndie Hunt MD | | | 2019 | Visit | | [address] | | | | | | [place], | | | | | | [place] [address] | | | | | | [phone] | | | | | | | [...] | | | | | [place], | | | | | | [place] [address] | | | | | | [phone] | | | | | | | | +--------+ + + + + documented as of this encounter Visit Diagnoses Not on filedocumented in this encounter"
--- OUTSIDE RECORDS SUMMARY | ~2020-07-24 | XMS | Encounter Summary ---
Demographics + + + | Address | [address] | | | [place] [address] | + + + | Home Phone | | + + + | Preferred Language | Unknown | + + + | Marital Status | Single | + + + | Muslim Affiliation | NON | + + + | Race | White | + + + | Ethnic Group | Not or | + + + Author + + + | Author | [facility] | + + + | Organization | [facility] | + + + [...] [place] | | | | | [address] | | + + + + + Care Team Providers + +------+ + | Care Sales Representative Graphic Art Name | Role | Phone | + +------+ + | Francisco Macias | PCP | | + +------+ + Reason for Visit + + + | Reason | Comments | + + + | Follow-up visit | S/P Rt RCR | + + + Encounter Details +--------+---------+ + + + | Date | Type | Department | Care Team | Description | +--------+---------+ + + + | 06/05/ | Office | [facility] | Marley Apple | Status post right | | 2018 | Visit | Sports Medicine & | VIRAL Duran [address] | rotator cuff repair | | | | Orthopaedic Surgery | [address] | (Primary Dx); | | | | [address] | [place], [place] | Impingement syndrome | | | | [place], [place] | [address] | of left shoulder | | | | [address] | [phone] | | | | | [phone] | | | +--------+---------+ + + + [...] in this encounter Patient Instructions Patient Instructions Marley Apple PA-C - 06/05/2018 4:16 PM PDTWork on rotator cuff strengthening for your right shoulder and exercises for your left shoulder Continue with Aleve to decrease inflammation and pain Return to the clinic in 1 month, sooner if needed Feel free to call the clinic if you have any questions or concerns [phone] Rotator Cuff: Exercises Your Care Instructions Here are some examples of typical rehabilitation exercises for your condition. Start each e xercise slowly. Ease off the exercise if you start to have pain. Your doctor or physical therapist will tell you when you can start these exercises and whic h ones will work best for you. How to do the exercises Pendulum swing If you have pain in your back, do not do this exercise. 1. Hold on to a table or the back of a chair with your good arm. Then bend forward a little and let your sore arm hang straight down. This exercise does not use the arm muscles. Rathe r, use your legs and your hips to create movement that makes your arm swing freely. 2. Use the movement from your hips and legs to guide the slightly swinging arm back and for th like a pendulum (or elephant trunk). Then guide it in circles that start small (about the size of a dinner plate). Make the circles a bit larger each day, as your pain allows. 3. Do this exercise for 5 minutes, 5 to 7 times each day. 4. As you have less pain, try bending over a little farther to do this exercise. This will increase the amount of movement at your shoulder. Posterior stretching exercise 1. Hold the elbow of your injured arm with your other hand. 2. Use your hand to pull your injured arm gently up and across your body. You will feel a g entle stretch across the back of your injured shoulder. 3. Hold for at least 15 to 30 seconds. Then slowly lower your arm. 4. Repeat 2 to 4 times. Up-the-back stretch Your doctor or physical therapist may want you to wait to do this stretch until you have re gained most of your range of motion and strength. You can do this stretch in different ways. Hold any of these stretches for at least 15 to 30 seconds. Repeat them 2 to 4 times. 1. Put your hand in your back pocket. Let it rest there to stretch your shoulder. 2. With your other hand, hold your injured arm (palm outward) behind your back by the wrist . Pull your arm up gently to stretch your shoulder. 3. Next, put a towel over your other shoulder. Put the hand of your injured arm behind your back. Now hold the back end of the towel. With the other hand, hold the front end of the to wel in front of your body. Pull gently on the front end of the towel. This will bring your h and farther up your back to stretch your shoulder. Overhead stretch 1. Standing about an arm's length away, grasp onto a solid surface. You could use a counter top, a doorknob, or the back of a sturdy chair. 2. With your knees slightly bent, bend forward with your arms straight. Lower your upper clarice dy, and let your shoulders stretch. 3. As your shoulders are able to stretch farther, you may need to take a step or two backwa rd. 4. Hold for at least 15 to 30 seconds. Then stand up and relax. If you had stepped back dur ing your stretch, step forward so you can keep your hands on the solid surface. 5. Repeat 2 to 4 times. Shoulder flexion (lying down) To make a wand for this exercise, use a piece of PVC pipe or a broom handle with the broom removed. Make the wand about a foot wider than your shoulders. 1. Lie on your back, holding a wand with both hands. Your palms should face down as you hol d the wand. 2. Keeping your elbows straight, slowly raise your arms over your head. Raise them until yo u feel a stretch in your shoulders, upper back, and chest. 3. Hold for 15 to 30 seconds. 4. Repeat 2 to 4 times. Shoulder rotation (lying down) To make a wand for this exercise, use a piece of PVC pipe or a broom handle with the broom removed. Make the wand about a foot wider than your shoulders. 1. Lie on your back. Hold a wand with both hands with your elbows bent and palms up. 2. Keep your elbows close to your body, and move the wand across your body toward the sore arm. 3. Hold for 8 to 12 seconds. 4. Repeat 2 to 4 times. Wall climbing (to the side) Avoid any movement that is straight to your side, and be careful not to arch your back. You r arm should stay about 30 degrees to the front of your side. 1. Stand with your side to a wall so that your fingers can just touch it at an angle about 30 degrees toward the front of your body. 2. Walk the fingers of your injured arm up the wall as high as pain permits. Try not to shr ug your shoulder up toward your ear as you move your arm up. 3. Hold that position for a count of at least 15 to 20. 4. Walk your fingers back down to the starting position. 5. Repeat at least 2 to 4 times. Try to reach higher each time. Wall climbing (to the front) During this stretching exercise, be careful not to arch your back. 1. Face a wall, and stand so your fingers can just touch it. 2. Keeping your shoulder down, walk the fingers of your injured arm up the wall as high as pain permits. (Don't shrug your shoulder up toward your ear.) 3. Hold your arm in that position for at least 15 to 30 seconds. 4. Slowly walk your fingers back down to where you started. 5. Repeat at least 2 to 4 times. Try to reach higher each time. Shoulder blade squeeze 1. Stand with your arms at your sides, and squeeze your shoulder blades together. Do not ra ise your shoulders up as you squeeze. 2. Hold 6 seconds. 3. Repeat 8 to 12 times. Scapular exercise: Arm reach 1. Lie flat on your back. This exercise is a very slight motion that starts with your arms raised (elbows straight, arms straight). 2. From this position, reach higher toward the cameron or ceiling. Keep your elbows straight. A ll motion should be from your shoulder blade only. 3. Relax your arms back to where you started. 4. Repeat 8 to 12 times. Arm raise to the side During this strengthening exercise, your arm should stay about 30 degrees to the front of y our side. 1. Slowly raise your injured arm to the side, with your thumb facing up. Raise your arm 60 degrees at the most (shoulder level is 90 degrees). 2. Hold the position for 3 to 5 seconds. Then lower your arm back to your side. If you need to, bring your "good" arm across your body and place it under the elbow as you lower your i njured arm. Use your good arm to keep your injured arm from dropping down too fast. 3. Repeat 8 to 12 times. 4. When you first start out, don't hold any extra weight in your hand. As you get stronger, you may use a 1-pound to 2-pound dumbbell or a small can of food. Shoulder flexor and extensor exercise These are isometric exercises. That means you contract your muscles without actually moving . 1. Push forward (flex): Stand facing a wall or doorjamb, about 6 inches or less back. Hold your injured arm against your body. Make a closed fist with your thumb on top. Then gently p ush your hand forward into the wall with about 25% to 50% of your strength. Don't let your b marcio move backward as you push. Hold for about 6 seconds. Relax for a few seconds. Repeat 8 t o 12 times. 2. Push backward (extend): Stand with your back flat against a wall. Your upper arm should be against the wall, with your elbow bent 90 degrees (your hand straight ahead). Push your e lbow gently back against the wall with about 25% to 50% of your strength. Don't let your bod y move forward as you push. Hold for about 6 seconds. Relax for a few seconds. Repeat 8 to 1 2 times. Scapular exercise: Wall push-ups This exercise is best done with your fingers somewhat turned out, rather than straight up a nd down. 1. Stand facing a wall, about 12 inches to [address] your hands on the wall at shoulder height. 3. Slowly bend your elbows and bring your face to the wall. Keep your back and hips straigh t. 4. Push back to where you started. 5. Repeat 8 to 12 times. 6. When you can do this exercise against a wall comfortably, you can try it against a count er. You can then slowly progress to the end of a couch, then to a sturdy chair, and finally to the floor. Scapular exercise: Retraction For this exercise, you will need elastic exercise material, such as surgical tubing or Ther a-Band. 1. Put the band around a solid object at about waist level. (A bedpost will work well.) Eac h hand should hold an end of the band. 2. With your elbows at your sides and bent to 90 degrees, pull the band back. Your shoulder blades should move toward each other. Then move your arms back where you started. 3. Repeat 8 to 12 times. 4. If you have good range of motion in your shoulders, try this exercise with your arms lif valarie out to the sides. Keep your elbows at a 90-degree angle. Raise the elastic band up to ab out shoulder level. Pull the band back to move your shoulder blades toward each other. Then move your arms back where you started. Internal rotator strengthening exercise 1. Start by tying a piece of elastic exercise material to a doorknob. You can use surgical tubing or Thera-Band. 2. Stand or sit with your shoulder relaxed and your elbow bent 90 degrees. Your upper arm s hould rest comfortably against your side. Squeeze a rolled towel between your elbow and your body for comfort. This will help keep your arm at your side. 3. Hold one end of the elastic band in the hand of the painful arm. 4. Slowly rotate your forearm toward your body until it touches your belly. Slowly move it back to where you started. 5. Keep your elbow and upper arm firmly tucked against the towel roll or at your side. 6. Repeat 8 to 12 times. External rotator strengthening exercise 1. Start by tying a piece of elastic exercise material to a doorknob. You can use surgical tubing or Thera-Band. (You may also hold one end of the band in each hand.) 2. Stand or sit with your shoulder relaxed and your elbow bent 90 degrees. Your upper arm s hould rest comfortably against your side. Squeeze a rolled towel between your elbow and your body for comfort. This will help keep your arm at your side. 3. Hold one end of the elastic band with the hand of the painful arm. 4. Start with your forearm across your belly. Slowly rotate the forearm out away from your body. Keep your elbow and upper arm tucked against the towel roll or the side of your body u ntil you begin to feel tightness in your shoulder. Slowly move your arm back to where you st arted. 5. Repeat 8 to 12 times. Follow-up care is a marrero part of your treatment and safety. Be sure to make and go to all ap pointments, and call your doctor if you are having problems. It's also a good idea to know y our test results and keep a list of the medicines you take. Where can you learn more? To learn more about "Rotator Cuff: Exercises", log into your [employer] account at [email or web address]. You can enter J005 in the "Health Library" search box. Not on MyChart? Review the MyChart section of your After Visit Summary for directions on ho w to sign up. Current as of: October 05, 2017 Content Version: 11.7 9409-5194 [employer]. Care instructions adapted under license by [facility]. If you have questions about a medical condition or this instr uction, always ask your healthcare professional. [employer] disclaims any patti anty or liability for your use of this information. documented in this encounter Progress Notes Marley Apple PA-C - 06/05/2018 3:45 PM PDTChief Complaint: S/P Right shoulder rotat or cuff repair HPI: David Hall is a 47 y.o. male who returns to the office today in routine follo w up after right shoulder surgery. The patient was taken to the operating room on 03/21/18 w here he underwent a Right shoulder arthroscopy with labral/biceps tendon/rotator cuff debrid ement followed by a subacromial decompression and distal clavicle excision, and arthroscopic rotator cuff repair. The patient reports he wore the sling for 2 weeks post op. 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 He denies any chest pain, SOB, fever, chills or wound issues. The patient reports he has been doing all of his r ehab on his own, as he doesn't have time to go to PT. He reports his right shoulder ROM an d strength has significantly improved, he continues to have intermittent pain but overall is improving. He also mentions pain in his left shoulder with abduction past 100 degrees and s tates it is due to "bone spurs." He returns to the office today in follow up. Overall, the patient feels 80% better. Current pain is 2/10 and is characterized as dull, aching and intermittent. Symptoms are improving. The pain does not wake the patient at nig ht. It is associated with weakness. Symptoms are aggravated by sleeping, and improve with rest and ice. He is using naproxen for the pain. Review of Systems: Completed and reviewed with patient per patient intake form. See scanned document for refe rence. Physical Exam: Ht 1.88 m (6' 2") | Wt 86.2 kg (190 lb) | BMI 24.39 kg/(m^2) Alert, pleasant and in NAD Right shoulder: Inspection: Incisions well healed. No signs of infection. Minimal swelling. Palpation: No crepitus. Range of motion: FF active 150, ER 30, IR 30 Strength: 4-5/5 RC strength Sensation: Axillary nerve intact to light touch. +Speeds NVI Left shoulder: Inspection: No obvious deformity Palpation: No crepitus. Range of motion: FF 160, ABD 140 ER 30, IR 30 Strength: 5/5 RC strength +Impingement NVI Assessment: Status post right shoulder rotator cuff repair-progressing well Left shoulder impingement Plan: David continues to do well following surgery. The patient understands that he has bee n non compliant with the post op protocol. He has been working on right shoulder ROM and str engthening, he was given RC strengthening exercises to work on at home as well. He was inst ructed to avoid any heavy lifting, pushing or pulling activities with his right arm. I have reviewed his post operative rehabilitation goals and time line for recovery. The importan ce of compliance with this protocol was emphasized. He will continue to ice his shoulder d aily. The patient was instructed to work on exercises and try Aleve or Advil for his left s houlder discomfort. He will return to the clinic in 1 month for follow up regarding his lef t shoulder pain, sooner if needed. Follow up: 4 weeks P DTdocumented in this encounter Plan of Treatment +--------+ + + + + | Date | Type | Specialty | Care Team | Description | +--------+ + + + + | 08/07/ | Telephone-S | Pre-operative | 4, [facility] [address] | | | 2019 | cheduled | Medicine | [address] | | | | | | [place] [address] | | +--------+ + + + + | 08/13/ | Office | Surgery | Cyndie Hunt MD | | | 2019 | Visit | | [address] | | | | | | [place], | | | | | | [place] [address] | | | | | | [phone] | | | | | | | [...] | | | | | [place], | | | | | | [place] [address] | | | | | | [phone] | | | | | | | | +--------+ + + + + documented as of this encounter Visit Diagnoses + + | Diagnosis | + + | Status post right rotator cuff repair - Primary Other postprocedural status | + + | Impingement syndrome of left shoulder Other affections of shoulder region, not | | elsewhere classified | + + documented in this encounter
--- OUTSIDE RECORDS SUMMARY | ~2020-07-24 | XMS | Encounter Summary ---
Demographics + + + | Address | [address] | | | [place] [address] | + + + | Home Phone | | + + + | Preferred Language | Unknown | + + + | Marital Status | Single | + + + | Orthodox Affiliation | NON | + + + [...] [place] | | | | | [address] | | + + + + + Care Team Providers + +------+ + | Care Optical Goods Worker Name | Role | Phone | + +------+ + | No Pcp Per Patient | PCP | Unavailable | + +------+ + Encounter Details +--------+ + + + + | Date | Type | Department | Care Team | Description | +--------+ + + + + | 04/05/ | Hospital | Diagnostic Imaging | Roberto Rodriguez, | | | 2016 | Encounter | at [facility] | MD Mabel Avalos | | | | | [address] | [place] | | | | | [place] | [address] | | | | | [address] | [phone] | | | | | [phone] | | | +--------+ + + + [...] | Pre-operative | 4, [facility] Gamma Ray Operator [address] | | | 2019 | cheduled | Medicine | [address] | | | | | | [place] [address] | | +--------+ + + + + | 08/13/ | Office | Surgery | Cyndie Hunt MD | | | 2019 | Visit | | [address] | | | | | | [place], | | | | | | [place] [address] | | | | | | [phone] | | | | | | | [...] | | | | | [place], | | | | | | [place] [address] | | | | | | [phone] | | | | | | | | +--------+ + + + + documented as of this encounter Procedures + +--------+ + + + | Procedure Name | Priori | Date/Time | Associated Diagnosis | Comments | | | ty | | | | + +--------+ + + + | X-RAY SHOULDER 3+ | Routin | 04/05/2017 | Right shoulder | Results for this | | VIEWS RIGHT | e | 11:08 AM | pain, unspecified | procedure are in the | | | | PDT | chronicity | results section. | + +--------+ + + + documented in this encounter Results X-RAY SHOULDER 3+ VIEWS RIGHT (04/05/2017 11:08 AM PDT) + + | Specimen | + + | | + + + + + | Narrative | Performed At | + + + | [address] [place] [address] | [facility] | | [place] [address] | DEPARTMENT | | [phone] Name: DAVID HALL Phys: | RADIOLOGY | | ROBERTO RODRIGUEZ : 1970 Sex: M CSN: | | | [id number] MR# [id number] Exam Date: 04/05/2017 | | | EXAM: X-RAY SHOULDER 3+ VIEWS RIGHT CLINICAL HISTORY: Right | | | shoulder pain. COMPARISON: None available. TECHNIQUE: Four | | | views of the right shoulder were obtained. FINDINGS: Bones: No | | | acute fracture or destructive osseous lesion. Bone mineralization | | | is normal. Joints: The glenohumeral and acromioclavicular joints | | | are intact with no evidence of dislocation or significant | | | degenerative change. Soft tissues: No radiopaque foreign body or | | | soft tissue calcification. IMPRESSION: No acute osseous | | | process. REPORT SIGNED IN OTHER VENDOR SYSTEM 04/05/2017 | | | Reported by: Mak Benoit MD Electronically signed by: Mak | | | MD Cy Transcribed Date/Time: 04/05/2017 11:48 | | | Account Services Manager: FLUENCY | | + + + + + | Procedure Note | + + | Interface, Radiology Results - 04/05/2017 11:52 AM PDT [address] | | [address] [place] [address] | | Name: DAVID HALL Phys: ROBERTO RODRIGUEZ : 1970 Sex: M | | CSN: [id number] MR# [id number] Exam Date: 04/05/2017 EXAM:X-RAY SHOULDER 3+ | | VIEWS RIGHT CLINICAL HISTORY:Right shoulder pain. COMPARISON:None available. | | TECHNIQUE:Four views of the right shoulder were obtained. FINDINGS:Bones: No acute | | fracture or destructive osseous lesion. Bonemineralization is normal. Joints: The | | glenohumeral and acromioclavicular joints are intactwith no evidence of dislocation or | | significant degenerative change. Soft tissues: No radiopaque foreign body or soft | | tissuecalcification. IMPRESSION:No acute osseous process. REPORT SIGNED IN OTHER | | VENDOR SYSTEM 04/05/2017 Reported by: Mak Benoit MD Electronically signed by: | | Mak Benoit MD Transcribed Date/Time: 04/05/2017 11:48Transcriptionist: FLUENCY | |EXAM: | |X-RAY SHOULDER 3+ VIEWS RIGHT | | | |CLINICAL HISTORY: | |Right shoulder pain. | | | |COMPARISON: | |None available. | | | |TECHNIQUE: | |Four views of the right shoulder were obtained. | | | |FINDINGS: | |Bones: No acute fracture or destructive osseous lesion. Bone | |mineralization is normal. | | | |Joints: The glenohumeral and acromioclavicular joints are intact | |with no evidence of dislocation or significant degenerative change. | | | |Soft tissues: No radiopaque foreign body or soft tissue | |calcification. | | | |IMPRESSION: | |No acute osseous process. | | | | | | REPORT SIGNED IN OTHER VENDOR SYSTEM 04/05/2017 | |Reported by: Mak Benoit MD | | | |Electronically signed by: Mak Benoit MD | | | |Transcribed Date/Time: 04/05/2017 11:48 | |Account Services Manager: FLUENCY | | | | | | | + + + +---------+ + + | Performing | Address | City/State/Zipcode | Phone Number | | Organization | | | | + +---------+ + + | [facility] | | | | | RADIOLOGY | | | | + +---------+ + + documented in this encounter Visit Diagnoses + + | Diagnosis | + + | Right shoulder pain, unspecified chronicity | + + documented in this encounter"
--- OUTSIDE RECORDS SUMMARY | ~2020-07-24 | XMS | Encounter Summary ---
Demographics + + + | Address | [address] | | | [place] [address] | + + + | Home Phone | | + + + | Preferred Language | Unknown | + + + | Marital Status | Single | + + + | Nondenominational Affiliation | NON | + + + | Race | White | + + + | Ethnic Group | Not or | + + + Author + + + | Author | [facility] | + + + | Organization | [facility] | + + + | [...] [place] | | | | | [address] | | + + + + + Care Team Providers + +------+ + | Care Electrophysiology Nurse Practitioner Name | Role | Phone | + [...] | | | | Rd | [place] [address] | | | | | Impingement | [place], [place] | Phone: | | | | | syndrome of | [address] | [phone] | | | | | right | Phone: | Fax: | | | | | shoulder | [phone] | [phone] | | | | | Procedures | Fax: | | | | | | REQUEST TO | [phone] | | | | | | SURGERY | | | | | | | [address] | | | | | | | IA SHLDR | | | | | | | ARTHROSCOP,S | | | | | | | URG,W/ROTAT | | | | | | | CUFF REPR | | | | | | | IA SHLDR | | | | | | | ARTHROSCOP,P | | | | | | | ART | | | | | | | ACROMIOPLAS | | | | | | | W/CORACOACRO | | | | | | | M IA SHLDR | | | | | | [...] | +--------+ + + + + | 11/22/ | Hospital | Same Day Surgery | Beni Helm, | | | 2017 | Encounter | at [facility] | MD [address] | | | | | [address] | [place], [place] | | | | | [place] | [address] | | | | | [address] | [phone] | | | | | [phone] | | | +--------+ + + + [...] + + + | Blood Pressure | 129/75 | 11/22/2017 8:00 AM | | | | | PST | | + + + + + | Pulse | 69 | 11/22/2017 8:00 AM | | | | | PST | | + + + + + | Temperature | 36.4 C (97.5 F) | 11/22/2017 8:00 AM | | | | | PST | | + + + + + | Respiratory Rate | 18 | 11/22/2017 8:00 AM | | | | | PST | | + + + + + | Oxygen Saturation | 97% | 11/22/2017 8:00 AM | | | | | PST | | + + + + + | Inhaled Oxygen | - | - | | | Concentration | | | | + + + + + | Weight | 81.5 kg (179 lb 10.8 | 11/22/2017 8:00 AM | | | | oz) | PST | | + + + + + | Height | 188 cm (6' 2") | 11/22/2017 8:00 AM | | | | | PST | | + + + + + | Body Mass Index | 23.07 | 11/22/2017 8:00 AM | | | | | PST | | + + + + + documented in this encounter Progress Notes Brigida Webber RN - 11/22/2017 8:28 AM PSTpatient [facility] and showed me a Wha t he thinks spiderbite on his right forearm. VSS but arm was visibly red with a small bite m ark in center. I called [place] and spoke with Charge/Dr regarding this. Sent a picture of site t o DR. felt that he would be more comfortable waiting to do the SX at this time and to hav e the pateint call his office tomorrow and let them know how the site was doing. Patient sta valarie quiroga. d ocumented in this encounter Plan of Treatment +--------+ + + + + | Date | Type | Specialty | Care Team | Description | +--------+ + + + + | 08/07/ | Telephone-S | Pre-operative | 4, [facility] [address] | | | 2019 | cheduled | Medicine | [address] | | | | | | [place] [address] | | +--------+ + + + + | 08/13/ | Office | Surgery | Cyndie Hunt MD | | | 2019 | Visit | | [address] | | | | | | [place] | | | | | | [place] [address] | | | | | | [phone] | | | | | | | [...] | | | | | [place] [place], | | | | | | [place] [address] | | | | | | [phone] | | | | | | | | +--------+ + + + + documented as of this encounter Procedures + +--------+ + + + | Procedure Name | Priori | Date/Time | Associated Diagnosis | Comments | | | ty | | | | + +--------+ + + + | X-RAY FLUOROSCOPY IN | Routin | 11/22/2017 | | Results for this | | OR <= 1 HOUR | e | 10:13 AM | | procedure are in the | | | | PST | | results section. | + +--------+ + + + documented in this encounter Results X-RAY FLUOROSCOPY IN OR <= 1 HOUR (11/22/2017 10:13 AM PST) + + | Specimen | + + | | + + + + + | Narrative | Performed At | + + + | [address] | [facility] | | [place] [address] | DEPARTMENT OF | | [phone] Name: MIRTHA HALL Phys: | RADIOLOGY | | DARIA MESSINA : 1970 Sex: M | | | CSN: [id number] MR# [id number] Exam Date: | | | 11/22/2017 EXAM: FLUOROSCOPY OR <= 1 HR CLINICAL HISTORY: | | | Stent exchange. COMPARISON: None available. TECHNIQUE: Two | | | intraoperative C arm images were obtained during left ureteral stent | | | exchange. FINDINGS: There is a single image of a guidewire | | | through a left ureteral stent and the distal portion of a left | | | ureteral stent. Numerous surgical clips project in the pelvis. | | | IMPRESSION: Guidewire through a left ureteral stent with distal | | | portion of a left ureteral stent minus a guide wire are partially | | | imaged in the images provided. Please see the procedure report for | | | additional details. REPORT SIGNED IN OTHER VENDOR SYSTEM | | | 11/22/2017 Reported by: LUCIUS YARBROUGH MD Electronically | | | signed by: LUCIUS YARBROUGH MD Transcribed Date/Time: 11/22/2017 | | | 11:02 Collections Assistant: BARNEY | | + + + + + | Procedure Note | + + | Interface, Radiology Results - 11/22/2017 11:07 AM PST [address] | | [place] [address] | | Name: MIRTHA HALL Phys: DARIA MESSINA : 1970 Sex: M | | CSN: [id number] MR# [id number] Exam Date: 11/22/2017 EXAM:FLUOROSCOPY OR <= | | 1 HR CLINICAL HISTORY:Stent exchange. COMPARISON:None available. TECHNIQUE:Two | | intraoperative C arm images were obtained during left ureteralstent exchange. | | FINDINGS:There is a single image of a guidewire through a left ureteral stentand the | | distal portion of a left ureteral stent. Numerous surgicalclips project in the pelvis. | | IMPRESSION:Guidewire through a left ureteral stent with distal portion of a leftureteral | | stent minus a guide wire are partially imaged in the imagesprovided. Please see the | | procedure report for additional details. REPORT SIGNED IN OTHER VENDOR SYSTEM | | 11/22/2017 Reported by: LUCIUS YARBROUGH MD Electronically signed by: LUCIUS | | MD ZENON Transcribed Date/Time: 11/22/2017 11:02Transcriptionist: FLUENCY | |FLUOROSCOPY OR <= 1 HR | | | |CLINICAL HISTORY: | |Stent exchange. | | | |COMPARISON: | |None available. | | | |TECHNIQUE: | |Two intraoperative C arm images were obtained during left ureteral | |stent exchange. | | | |FINDINGS: | |There is a single image of a guidewire through a left ureteral stent | |and the distal portion of a left ureteral stent. Numerous surgical | |clips project in the pelvis. | | | |IMPRESSION: | |Guidewire through a left ureteral stent with distal portion of a left | |ureteral stent minus a guide wire are partially imaged in the images | |provided. Please see the procedure report for additional details. | | | | | | REPORT SIGNED IN OTHER VENDOR SYSTEM 11/22/2017 | |Reported by: LUCIUS YARBROUGH MD | | | |Electronically signed by: LUCIUS YARBROUGH MD | | | |Transcribed Date/Time: 11/22/2017 11:02 | |Collections Assistant: FLUENCY | | | | | | [...]
--- OUTSIDE RECORDS SUMMARY | ~2020-07-24 | XMS | Encounter Summary ---
Demographics + + + | Address | [address] | | | [place] [address] | + + + | Home Phone | | + + + | Preferred Language | Unknown | + + + | Marital Status | Single | + + + | Methodist Affiliation | NON | + + + | Race | White | + + + | Ethnic Group | Not or | + + + Author + + + | Author | [facility] | + + + | Organization | [facility] | + + + [...] [place] | | | | | [address] | | + + + + + Care Team Providers + +------+ + | Care Head Charger Name | Role | Phone | + +------+ + | Francisco Macias | PCP | | + +------+ + Encounter Details +--------+ + + + + | Date | Type | Department | Care Team | Description | +--------+ + + + + | 12/21/ | Document-Sc | [facility] | Beni Helm, | | | 2019 | anned | Sports Medicine & | MD Mabel Avalos | | | | | Orthopaedic Surgery | [place] | | | | | [address] | [address] | | | | | [place] | [phone] | | | | | [address] | | | | | | [phone] | | | +--------+ + + + [...] 08/07/ | Telephone-S | Pre-operative | 4, [facility] [address] | | | 2020 | cheduled | Medicine | [address] | | | | | | [place] [address] | | +--------+ + + + + | 08/13/ | Office | Surgery | Cyndie Hunt MD | | | 2019 | Visit | | [address] | | | | | | [place], | | | | | | [place] [address] | | | | | | [phone] | | | | | | | [...] | | | | | | [place] [address] | | | | | | [phone] | | | | | | | | +--------+ + + + + documented as of this encounter Visit Diagnoses Not on filedocumented in this encounter"
--- OUTSIDE RECORDS SUMMARY | ~2020-07-24 | XMS | Encounter Summary ---
Demographics + + + | Address | [address] | | | [place] [address] | + + + | Home Phone | | + + + | Preferred Language | Unknown | + + + | Marital Status | Single | + + + | Episcopalian Affiliation | NON | + + + | Race | White | + + + | Ethnic Group | Not or | + + + Author + + + | Author | [facility] | + + + | Organization | [facility] | + + + | [...] [place] | | | | | [address] | | + + + + + Care Team Providers + +------+ + | Care Hospital Medical Biller Name | Role | Phone | + +------+ + | No Pcp Per Patient | PCP | Unavailable | + +------+ + Reason for Visit + +--------+ + | Reason | Onset | Comments | | | Date | | + +--------+ + | Referral | 07/01/ | MRI LUMBAR SPINE AUTHORIZATION | | | 2016 | | + +--------+ + Encounter Details +--------+ + + + + | Date | Type | Department | Care Team | Description | +--------+ + + + + | 07/01/ | Telephone | [facility] | Alber Freire, | Referral (MRI LUMBAR | | 2017 | | Sports Medicine & | MD Emmett Harrison | SPINE | | | | Orthopaedic Surgery | [address] | AUTHORIZATION) | | | | [address] | [place], [place] | | | | | [place], [place] | [address] | | | | | [address] | [phone] | | | | | [phone] | | | +--------+ + + + [...] this encounter Miscellaneous Notes Telephone Encounter - Zechariah Wang - 07/01/2017 10:43 AM PDTLVM to update mike ent that Authorization was rcv'd for DI exam and that orders were sent to for scheduling. Patient was instructed to contact our office to schedule a FU appt w/ Dr. Freire once the exam had been scheduled. 10: 43 AM PDTdocumented in this encounter Plan of Treatment +--------+ + + + + | Date | Type | Specialty | Care Team | Description | +--------+ + + + + | 08/07/ | Telephone-S | Pre-operative | 4, [facility] Experience Designer [address] | | | 2019 | cheduled | Medicine | [address] | | | | | | [place] [address] | | +--------+ + + + + | 08/13/ | Office | Surgery | Cyndie Hunt MD | | | 2019 | Visit | | [address] | | | | | | [place], | | | | | | [place] [address] | | | | | | [phone] | | | | | | | | +--------+ + + + + | 08/14/ | Procedure | Surgery | | | | 2019 | Pass | | | | +--------+ + + + + | 09/10/ | Telephone-S | Surgery | Cyndie Hunt MD | | | 2020 | gita | | [address] | | | | | | [place], | | | | | | [place] [address] | | | | | | [phone] | | | | | | | | +--------+ + + + + documented as of this encounter Visit Diagnoses Not on filedocumented in this encounter"
--- OUTSIDE RECORDS SUMMARY | ~2020-07-24 | XMS | Encounter Summary ---
Demographics + + + | Address | [address] | | | [place] [address] | + + + | Home Phone | | + + + | Preferred Language | Unknown | + + + | Marital Status | Single | + + + | Baptist Affiliation | NON | + + + [...] [place] | | | | | [address] | | + + + + + Care Team Providers + +------+ + | Care Solutions Developer Name | Role | Phone | + +------+ + | Francisco Macias | PCP | | + +------+ + Encounter Details +--------+ + + + + | Date | Type | Department | Care Team | Description | +--------+ + + + + | 11/22/ | Procedure | [facility] | | | | 2017 | Pass | [facility] [address] | | | | | | [place] | | | | | | [address] | | | +--------+ + + + [...] 08/07/ | Telephone-S | Pre-operative | 4, [facility] Camera Technician [address] | | | 2019 | cheduled | Medicine | [address] | | | | | | [place] [address] | | +--------+ + + + + | 08/13/ | Office | Surgery | Cyndie Hunt MD | | | 2019 | Visit | | [address] | | | | | | [place], | | | | | | [place] [address] | | | | | | [phone] | | | | | | | [...] | | | | | | [place] [address] | | | | | | [phone] | | | | | | | | +--------+ + + + + documented as of this encounter Visit Diagnoses Not on filedocumented in this encounter"
--- OUTSIDE RECORDS SUMMARY | ~2020-07-24 | XMS | Encounter Summary ---
Demographics + + + | Address | [address] | | | [place] [address] | + + + | Home Phone | | + + + | Preferred Language | Unknown | + + + | Marital Status | Single | + + + | Presybeterian Affiliation | NON | + + + | Race | White | + + + | Ethnic Group | Not or | + + + Author + + + | Author | [facility] | + + + | Organization | [facility] | + + + | Address | Unknown | + + + | Phone | Unavailable | + + + Support + + + + + | Name | Relationship | Address | Phone | + + + + + | Abdon Gross | ECON | [address] | | | [address] | | [place] | | | | | [address] | | + + + + + Care Team Providers + +------+ + | Care Director Of Special Services Name | Role | Phone | + +------+ + | No Pcp Per Patient | PCP | Unavailable | + +------+ + Reason for Visit + + + | Reason | Comments | + + + | Pre-Admission | | + + + Encounter Details +--------+ + + + + | Date | Type | Department | Care Team | Description | +--------+ + + + + | 03/20/ | PreAdmit | [facility] | Marley Apple | Pre-Admission | | 2018 | Orders | Sports Medicine & | VIARL Duran [address] [facility] | | | | | Orthopaedic Surgery | [address] | | | | | [address] [facility] | [place], [place] | | | | | [place] | [address] | | | | | [address] | [phone] | | | | | [phone] | | | +--------+ + + + [...] | Telephone-S | Pre-operative | 4, [facility] [address] | | | 2019 | cheduled | Medicine | [address] | | | | | | [place] [address] | | +--------+ + + + + | 08/13/ | Office | Surgery | Cyndie Hunt MD | | | 2019 | Visit | | [address] | | | | | | [place], | | | | | | [place] [address] | | | | | | [phone] | | | | | | | [...] | | | | | [place], | | | | | | [place] [address] | | | | | | [phone] | | | | | | | | +--------+ + + + + documented as of this encounter Visit Diagnoses Not on filedocumented in this encounter"
--- OUTSIDE RECORDS SUMMARY | ~2020-07-24 | XMS | Encounter Summary ---
Demographics + + + | Address | [address] | | | [place] [address] | + + + | Home Phone | | + + + | Preferred Language | Unknown | + + + | Marital Status | Single | + + + | Islam Affiliation | NON | + + + [...] [place] | | | | | [address] | | + + + + + Care Team Providers + +------+ + | Care Internet Database Specialist Name | Role | Phone | + +------+ + | No Pcp Per Patient | PCP | Unavailable | + +------+ + Reason for Visit +---------+ + | Reason | Comments | +---------+ + | Post Op | Rt RCR | +---------+ + Encounter Details +--------+---------+ + + + | Date | Type | Department | Care Team | Description | +--------+---------+ + + + | 03/30/ | Office | [facility] | Marley Apple | Status post rotator | | 2018 | Visit | Sports Medicine & | VIRAL Duran [address] [facility] [address] | cuff repair (Primary | | | | Orthopaedic Surgery | [address] | Dx) | | | | [address] [facility] | [place], [place] | | | | | [place] | [address] | | | | | [address] | [phone] | | | | | [phone] | | | +--------+---------+ + + + [...] Weight | 86.2 kg (190 lb) | 03/30/2018 3:03 PM | | | | | PDT | | + + + + + | Height | 188 cm (6' 2") | 03/30/2018 3:03 PM | | | | | PDT | | + + + + + | Body Mass Index | 24.39 | 03/30/2018 3:03 PM | | | | | PDT | | + + + + + documented in this encounter Patient Instructions Patient Instructions Marley Apple PA-C - 03/30/2018 3:15 PM PDTSutures removed toda y and steri strips applied Continue with sling at all times Pendulums only No heavy lifting with right arm Continue with ice daily Feel free to call the clinic if you have any questions or concerns [phone] ly signed by Marley Apple PA-C at 03/30/2018 3:37 PM PDT documented in this encounter Progress Notes Marley Apple PA-C - 03/30/2018 3:15 PM PDTChief Complaint: S/P Right shoulder rotat [...] clavicle excision, and arthroscopic rotator cuff repair. He reports full compliance with post operative instructions. He has been wearing his sling, most of the time but admits he removes it frequently to work on [employer] at his side. He denies any chest pain, SOB, fever, chills or wound issues. He return s to the office today in routine follow up. Overall, the patient feels 50% better. Current pain is 5/10 and is characterized as dull, aching and intermittent. Symptoms are improving. The pain does occasionally wake the patie nt at night. It is associated with weakness. Symptoms are aggravated by laying down, and i mprove with rest and ice. He is using naproxen for the pain. Review of Systems: Completed and reviewed with patient per patient intake form. See scanned document for refe vanda. Physical Exam: BP 128/82 | Pulse 117 | Ht 1.88 m (6' 2") | Wt 86.2 kg (190 lb) | SpO2 98% | BMI 24.39 kg/( m^2) Alert, pleasant and in NAD Right shoulder: Inspection: Wound clean, dry, sutures intact. No signs of infection. Minimal swelling. Palpation: No crepitus. Range of motion: Limited range of motion restricted by pain. Strength: Not tested secondary to pain. Sensation: Axillary nerve intact to light touch. NVI Assessment: Status post right shoulder rotator cuff repair-progressing well Plan: David is doing well following surgery. His sutures were removed today and steri strip s applied. He was instructed to continue with his sling at all times, removing only for gent le pendulums and ROM of his elbow and wrist. He was instructed to avoid any lifting, pushing or pulling activities with his right arm. He will continue to ice his shoulder daily. He wi ll return to the clinic in 4 weeks, sooner if needed. Follow up: 4 weeks P DTdocumented in this encounter Plan of Treatment +--------+ + + + + | Date | Type | Specialty | Care Team | Description | +--------+ + + + + | 08/07/ | Telephone-S | Pre-operative | 4, [facility] [address] | | | 2019 | [facility] | Medicine | [address] | | | | | | [place] [address] | | +--------+ + + + + | 08/13/ | Office | Surgery | Cyndie Hunt MD | | | 2019 | Visit | | [address] | | | | | | [place], | | | | | | [place] [address] | | | | | | [phone] | | | | | | | [...] | | | | | [place], | | | | | | [place] [address] | | | | | | [phone] | | | | | | | | +--------+ + + + + documented as of this encounter Visit Diagnoses + + | Diagnosis | + + | Status post rotator cuff repair - Primary Other postprocedural status | + + documented in this encounter
--- OUTSIDE RECORDS SUMMARY | ~2020-07-24 | XMS | Encounter Summary ---
Demographics + + + | Address | [address] | | | [place] [address] | + + + | Home Phone | | + + + | Preferred Language | Unknown | + + + | Marital Status | Single | + + + | Zoroastrianism Affiliation | NON | + + + | Race | White | + + + | Ethnic Group | Not or | + + + Author + + + | Author | [facility] | + + + | Organization | [facility] | + + + | Address | Unknown | + + + | Phone | Unavailable | + + + Support + + + + + | Name | Relationship | Address | Phone | + + + + + | Abdon Gross | ECON | [address] | | | [address] [place] | | [place] | | | | | [address] | | + + + + + Care Team Providers + +------+ + | Care Warp Placer Name | Role | Phone | + +------+ + | Francisco Macias | PCP | | + +------+ + Reason for Visit + +--------+ + | Reason | Onset | Comments | | | Date | | + +--------+ + | Radiology Order | 04/22/ | | | | 2020 | | + +--------+ + | Care Coordination | 04/22/ | | | | 2020 | | + +--------+ + Encounter Details +--------+ + + + + | Date | Type | Department | Care Team | Description | +--------+ + + + + | 04/22/ | Telephone | [facility] | Cyndie Hunt MD | Radiology Order; | | 2019 | | Center at [facility] [address] | [address] | Care Coordination | | | | [facility] | [place], | | | | | [facility] and | [place] [address] | | | | | [place] [address] | [phone] | | | | | [place], [place] | | | | | | [address] | | | | | | [phone] | | | +--------+ + + + [...] Telephone Encounter - Ofe Thomason MA - 05/02/2020 11:09 AM PDTI spoke to pt. Maria T samson is scheduled for Xray Gastrografin study at [facility] on 05/[address] Lewis office on 05/19. Explained to pt no kit is needed prior to Xray. I called [facility] and was told no pre p is needed if pt has an ostomy. I also checked with our Radiology Department to make sure t hat info was correct. I also LVM for office to make sure they have all they need f rom us in order to preform procedure. Reminder scheduled to request records when available. elephone Encounter - Reyna Mcfadden - 05/01/2020 1:32 PM PDTPerson calling? (Patient, spouse, caregiver, medical office, etc): Pt Reason for call: Informing that he scheduled the x-ray and colonoscopy appts for the a nd [address] Hunt needs to order a gastro kit for the appt. Provider / Specialty: gs colo Call back number confirmed?: yes Best call back number / ext: [phone] / noted under contact or phone tab. Caller would like a call back to discuss. Ok to leave a detailed message?: yes Iqra elephone Encounter - Ofe Drew MA - 05/01/2020 9:20 AM PDTPt has not scheduled Xray or colonoscopy. Attempted to reach pt. LVM reminding him of 's recommendations. Asked him to give us a call back once he is scheduled so we can track records. elephone Encounter - Ofe Thomason MA - 04/23/2020 4:03 PM PDTXray gastrograffin study sent to [facility] . Colonoscopy order faxed to [facility] Dr.Andrew Florez . Unable to reach pt. Left detailed VM letting pt know orders were faxed & he should be heari ng from them for scheduling. Advised I would follow back up in a few days to make sure he is scheduled. elephone Galina Scott RN - 04/22/2020 10:09 AM PDTDr. Hunt completed tel visit with pt on .Dr. Hunt also spoke with Dr. Florez regarding pt needing colonoscopy Recommending the fol lowing to be completed: Plan: Repeat colonoscopy via ostomy and via anus. Prior polyp, removed about 2014 Assess health of rectum prior to colostomy takedown. Referral to Dr. Mak Florez (patient prefers [place]) Gastrograffin enema via anus to assess length of rectum Patient prefers [place], [place] Patient has not and has promised not to place foreign bodies into his rectum Further recommendations to follow. Asking Ofe carmona MA to fax orders for both colonoscopy and Gastrograffin enema. Orders are placed by Dr. Hunt. documented in this en counter Plan of Treatment +--------+ + + + + | Date | Type | Specialty | Care Team | Description | +--------+ + + + + | 08/07/ | Telephone-S | Pre-operative | 4, [facility] [employer] Supervisor [address] | | | 2019 | cheduled | Medicine | [address] | | | | | | [place] [address] | | +--------+ + + + + | 08/13/ | Office | Surgery | Cyndie Hunt MD | | | 2019 | Visit | | [address] | | | | | | [place], | | | | | | [place] [address] | | | | | | [phone] | | | | | | | [...] | | | | | [place], | | | | | | [place] [address] | | | | | | [phone] | | | | | | | | +--------+ + + + + documented as of this encounter Visit Diagnoses Not on filedocumented in this encounter"
--- OUTSIDE RECORDS SUMMARY | ~2020-07-24 | XMS | Encounter Summary ---
Demographics + + + | Address | [address] | | | [place] [address] | + + + | Home Phone | | + + + | Preferred Language | Unknown | + + + | Marital Status | Single | + + + | Shinto Affiliation | NON | + + + | Race | White | + + + | Ethnic Group | Not or | + + + Author + + + | Author | [facility] | + + + | Organization | [facility] | + + [...] [place] | | | | | [address] | | + + + + + Care Team Providers + +------+ + | Care Land Classifier Name | Role | Phone | + +------+ + | Francisco Macias | PCP | | + +------+ + Encounter Details +--------+ + + + + | Date | Type | Department | Care Team | Description | +--------+ + + + + | 03/21/ | Procedure | [facility] | | | | 2017 | Pass | [facility] [address] | | | | | [address] | | | | | | [place] | | | | | | [address] | | | +--------+ + + + [...] Pre-operative | 4, [facility] [address] | | | 2019 | cheduled | Medicine | [address] | | | | | | [place] [address] | | +--------+ + + + + | 08/13/ | Office | Surgery | Cyndie Hunt MD | | | 2019 | Visit | | [address] | | | | | | [place], | | | | | | [place] [address] | | | | | | [phone] | | | | | | | [...] | | | | | | [place] [address] | | | | | | [phone] | | | | | | | | +--------+ + + + + documented as of this encounter Visit Diagnoses Not on filedocumented in this encounter"
--- OUTSIDE RECORDS SUMMARY | ~2020-07-24 | XMS | Encounter Summary ---
Demographics + + + | Address | [address] | | | [place] [address] | + + + | Home Phone | | + + + | Preferred Language | Unknown | + + + | Marital Status | Single | + + + | Episcopal Affiliation | NON | + + + | Race | White | + + + | Ethnic Group | Not or | + + + Author + + + | Author | [facility] | + + + | Organization | [facility] | + + + | [...] [place] | | | | | [address] | | + + + + + Care Team Providers + +------+ + | Care Application Architect Name | Role | Phone | + +------+ + | No Pcp Per Patient | PCP | Unavailable | + +------+ + Encounter Details +--------+ + + + + | Date | Type | Department | Care Team | Description | +--------+ + + + + | 10/28/ | Document-Sc | [facility] | Marley Apple | | | 2017 | anned | Sports Medicine & | DENISE DuranC [address] | | | | | Orthopaedic Surgery | [address] | | | | | [place] | [place], [place] | | | | | [place] | [address] | | | | | [address] | [phone] | | | | | [phone] | | | +--------+ + + + + Social History + +-------+ +--------+------+ | Tobacco Use | Types | Packs/Day | Years | Date | | | | | Used | | + +-------+ +--------+------+ | Former Smoker | | | | | + +-------+ +--------+------+ + +---+---+---+ | Smokeless Tobacco: | | | | | Never Used | | | | + +---+---+---+ + + +---------+ + | Alcohol Use [...] | Telephone-S | Pre-operative | 4, [facility] [address] | | | 2019 | cheduled | Medicine | [address] | | | | | | [place] [address] | | +--------+ + + + + | 08/13/ | Office | Surgery | Cyndie Hunt MD | | | 2019 | Visit | | [address] | | | | | | [place], | | | | | | [place] [address] | | | | | | [phone] | | | | | | | [...] | | | | | | [place] [address] | | | | | | [phone] | | | | | | | | +--------+ + + + + documented as of this encounter Visit Diagnoses Not on filedocumented in this encounter"
--- OUTSIDE RECORDS SUMMARY | ~2020-07-24 | XMS | Encounter Summary ---
Demographics + + + | Address | [id number] | | | [place] [address] | + + + | Home Phone [...] Author + + + | Author | [facility] | + + + | Organization | [facility] | + + + | Address | Unknown | + + + | Phone | Unavailable | + + + Support + + + + + | Name | Relationship | Address | Phone | + + + + + | Abdon Gross | ECON | [address] | | | [place] | | [place] | | | | | [phone] | | + + + + + Care Team Providers + +------+ + | Care Diplomatic Interpreter/Translator Name | Role | Phone | + +------+ + | No Pcp Per Patient | PCP | Unavailable | + +------+ + Reason for Visit + + + | Reason | Comments | + + + | Rectal bleeding | | + + + AUTH/CERT +--------+--------+ + + + + | Status | Reason | Specialty | Diagnoses / | Referred By | Referred To | | | | | Procedures | Contact | Contact | +--------+--------+ + + + + | Closed | | | | | | +--------+--------+ + + + + Encounter Details +--------+ + + + + | Date | Type | Department | Care Team | Description | +--------+ + + + + | 04/01/ | Hospital | [facility] [address] | Wayne Brownlee | | | 2013 - | Encounter | [address] | MD [address] | | | | | [address] [place] [address] | [address] | | | 04/03/ | | [place], [place] | [place], [place] | | | 2013 | | [address] | [address] | | | | | [phone] | [phone] | | | | | | | | | | | | Lonnie | | | | | | MD [address] | | | | | | [address] | | | | | | [place], [place] | | | | | | [address] | | | | | | [phone] | | | | | | | [...] + + + | Blood Pressure | 104/62 | 04/03/2014 7:30 AM | | | | | PDT | | + + + + + | Pulse | 66 | 04/03/2014 7:30 AM | | | | | PDT | | + + + + + | Temperature | 36.4 C (97.5 F) | 04/03/2014 7:30 AM | | | | | PDT | | + + + + + | Respiratory Rate | 14 | 04/03/2014 7:30 AM | | | | | PDT | | + + + + + | Oxygen Saturation | 100% | 04/03/2014 7:30 AM | | | | | PDT | | + + + + + | Inhaled Oxygen | - | - | | | Concentration | | | | + + + + + | Weight | 78.1 kg (172 lb 2.9 | 04/01/2014 11:27 AM | | | | oz) | PDT | | + + + + + | Height | 188 cm (6' 2") | 04/01/2014 11:27 AM | | | | | PDT | | + + + + + | Body Mass Index | 22.11 | 04/01/2014 11:27 AM | | | | | PDT | | + + + + + documented in this encounter Discharge Summaries Michele Flores MD,MPH - 04/03/2014 12:37 PM PDTFormatting of this note might be differen t from the original. INPATIENT PHYSICIAN DISCHARGE SUMMARY Attending Physician: Tiffanie Fleming MD PCP: No Pcp Per PATIENT Admission Date: 04/01/2014 Discharge Date: 04/03/2014 Diagnoses Principal Final Diagnosis: 1. Hematochezia Additional Diagnoses: 2. Acute blood loss anemia 3. Substance abuse Procedures 1. abd Xray Reason For Admission: Significant hematochezia Hospital Course: Mr. David Hall is a 43 yo man with pmh of substance abuse and multiple rectal foreig n bodies transferred from OSH due to concern for need for embolization with an estimated 1.7 L of BRBPR and resultant anemia in setting of recent rectal trauma. The bleeding occurred 3 days after he was hospitalized for removal of rectal foreign object (otis jar) which shat tered on extraction. Procedure team reported removal of all fragments and he was discharged home. The day after discharge he noted painless BRBPR while straining to urinate. The ble eding continued so he went to ED and was evaluated. He was given 1 unit of pRBCs and observ ed overnight after Xray imaging did not show indications of remnants or new foreign body. He received an additional unit of pRBCs en route to [facility]. He was admitted to the unit and obs erved over night with Hct: 32.2>34.7>28.1 and then transferred to the floor after no further bleeding was observed and he had normal stools. We monitored his hct for one more day give n that his hct trended down slightly to 26.6. Gastroenterology was consulted for recommenda tions of further evaluation of bleeding. They recommended that he have an outpatient colono scopy to fully evaluate for malignancy or other source of bleeding. He was discharged home when his hct was stable for 24 hours and he has no additional bleedi ng and had multiple normal stools with instructions to have colonoscopy and to seek care if additional bleeding did occur. Physical Exam: BP 104/62 | Pulse 66 | Temp 36.4 C (97.5 F) | RR 14 | Ht 1.88 m (6' 2") | Wt 78.1 kg (1 72 lb 2.9 oz) | SpO2 100% | BMI 22.1 kg/(m^2) Gen: Well appearing, no apparent distress HEENT: Sclera anicteric. MMM Lungs: CTAB, normal work of breathing CV: RRR, no m/r/g. 2+ pulses in all extremities Abd: Soft, NTND. Normoactive bowel sounds Neuro: AOx3, moving all extremities normally. Meds: None prior to admission and none started on discharge. Diet Regular Regular diet- There are no restrictions to your diet. You may eat or drink whatever you pr efer, though healthy food choices are recommended. Activity No activity restrictions Destination: Destination: Home Condition on Discharge Good Outstanding labs/studies: None Discharging Physician: MUNIRA AMARAL MD and Michele Flores MD Attending Physician: Tiffanie Fleming MD documented in t his encounter Discharge Instructions Instructions Jim Aubree - 04/03/2014Formatting of this note might be different from the o riginal. Patient Education Materials: Lower Gastrointestinal Bleeding: After Your Visit Your Care Instructions The digestive or gastrointestinal (GI) tract extends from your mouth to your anus. Bleeding in the lower GI tract can occur anywhere in the small intestine, large intestine (colon), r ectum, or anus. Bleeding may be caused by an infection, cancer, inflammatory bowel disease, hemorrhoids, diverticulitis, or clotting disorders. Light bleeding may not cause any symptoms at first. Over time you may feel very weak or tir ed because of the steady blood loss. Sudden, heavy bleeding requires prompt medical care. Al though bleeding in the GI tract can be life-threatening, it can usually be cured or controll ed. You may need tests to find the cause of your bleeding. Follow-up care is a marrero part of your treatment and safety. Be sure to make and go to all ap pointments, and call your doctor if you are having problems. It's also a good idea to know y our test results and keep a list of the medicines you take. How can you care for yourself at home? Take your medicines exactly as prescribed. Call your doctor if you think you are having a problem with your medicine. You will get more details on the specific medicines your docto r prescribes. Do not take aspirin or other anti-inflammatory medicines, such as naproxen (Aleve) or ib uprofen (Advil, Motrin), without talking to your doctor first. Ask your doctor if it is okay to use acetaminophen (Tylenol). Do not drink alcohol. Make sure your diet has foods rich in iron, such as red meat, shellfish, poultry, eggs, beans, raisins, whole-grain breads, and leafy green vegetables. Bleeding in the GI tract may make you lose iron. Make an appointment with a dietitian if you need help to plan your meal s. When should you call for help? Call 911 anytime you think you may need emergency care. For example, call if: You have sudden, severe belly pain. You vomit blood or what looks like coffee grounds. You passed out (lost consciousness). You pass maroon or very bloody stools. Call your doctor now or seek immediate medical care if: You are dizzy or lightheaded, or you feel like you may faint. Your stools are black and tarlike or have streaks of blood. You have belly pain. You vomit or have nausea. Watch closely for changes in your health, and be sure to contact your doctor if you do not get better as expected. Where can you learn more? To learn more about "Lower Gastrointestinal Bleeding: After Your Visit", log into your [employer] art account at [email or web address]. You can enter K069 in the Health Library" [facility] box. Not on MyChart? Review the MyChart section of your After Visit Summary for directions on ap aquino to sign up. [id number] [employer]. Care instructions adapted under license by [facility] & [facility]. This care instruction is for use with your licensed healthcar e professional. If you have questions about a medical condition or this instruction, always ask your healthcare professional. [employer] disclaims any warranty or liabili ty for your use of this information. Content Version: 9.9.235786; Last Revised: June 12, 2013 If you experience bloody stools prior to ability to get in for colonoscopy go to emergency room. Additional Instructions: Discharge Nurse: Aubree Fernandez Date: 04/03/2014 Discharge Time: 7:22 AM documented in this encounter Progress Notes Tiffanie Fleming MD - 04/02/2014 10:39 PM [facility] Internal Medicine Attending I personally interviewed the patient, performed the pertinent parts of the physical examina tion and personally formulated the plan with the GM2 resident team. I agree with the reside nt's documentation and have documented any additions or exceptions. Hct stable. No further bleeding. Main issues: 43 yo male who recently had otis glass insertion into rectum, which shattered upon removal . At time, glass removed under anesthesia and it was thought that he had no further glass re maining, but few days later had large volume hematochezia. Transferred to [facility] for possible need for further tx, but has been stable (post 2 units PRBC) with no further bleeding. 1. Hematochezia - likely due to mucosal trauma from glass shard, but still at risk for typi kianna causes (polyp, AVM, CA). Now stable with no evidence of glass shard on imaging. Seen by GI consult who recommended monitoring overnight with emergent flex sig if rebleeds vs outpt colonoscopy if stable. 2. Ilicit drug use (recent meth use). Reviewed chart and outside records, discussed with NF team, GM2 team, and pt. Total time 35 min. I spent > 50% on counseling and coordination of care. . Tiffanie Fleming MD, MPH paper conservator [facility] DEPARTMENT: [id number][place] [facility] [place] Place of Service:- Inpatient Date of Service: 04/02/2014 CSN: [id number] Suggested Modifiers:GC- Resident present for procedure Suggested CPT: 88747- Subsequent, Detailed/high complex, 35 min verstneha love Md, Munira A - 04/02/2014 9:51 PM PDT General Internal Medicine 2 Progress Note 24 Hour Events: Transferred out of the unit as he was stable without further rectal bleeding Normal stools Records review confirm at least one unit of pRBCs [facility] at [facility]SH and [facility] Patient reports 2 transfusions as well. Current Symptoms: None, reports feeling at baseline Physical Examination: Last 24 hour min/max Temp: 36.7 C (98.1 F) Temp Min: 36.4 C (97.5 F) Max: 36.7 C (98.1 F) Pulse: 78 Pulse Min: 77 Max: 82 Resp: 14 Resp Min: 14 Max: 16 BP: 116/73 mmHg BP Min: 92/57 Max: 116/73 SpO2: 99 % SpO2 Min: 98 % Max: 100 % Body mass index is 22.1 kg/(m^2). General: well appearing thin middle aged man, walking around room and floor HEENT: NC/AT , anictiric Lungs: CTAB Heart: RRR, no m/r/g Abd: flat, non-tender, mildly hyperactive bowel sounds, no masses palpated Neuro: no focal deficits noted Rectal inspection showed only Laboratory Interpretation: Hct: 32.2>34.7>28.1>26.6 Imaging Interpretation: None new Assessment and Plan 43 yo man with pmh of substance abuse and rectal multiple foreign bodies admitted with LV B RBPR and anemia in setting of shattered otis jar on extraction with no further bleeding but down trending HCT despite 2u pRBCs. #LGIB: no further BRBPR but still with down trending hct. GI consulted. Appreciate recs. - AM CBC, if stable, could discharge home early AM - follow up colonoscopy as out patient at [facility] or at OSH to eval for adenocarcinoma vs HPV related malignancy M. Ramya Amaral MD [facility] Family Medicine PGY 3 p [phone] Larry Qureshi - 04/02/2014 6:54 PM PDTSenior GI Fellow Note I personally interviewed the patient, performed the relevant elements of the physical exami nation, and formulated the assessment and plan with Dr. Allan Chin. See Dr. Chin' not e for further details. Mr. Hall is a 43 yo male who was admitted for GI bleeding after he recently had a rectal f oreign body extraction for a otis jar that had become lodged in the rectum. The jar fractur ed on removal, though it was thought at the time that all the fragments were removed. He had an uneventful course for several days before he presented with what is reported as profuse rectal bleeding that started while he was straining to urinate. He has not had further bleed ing while here as an inpatient, and his hct has been stable. While it is likely that his ble eding occurred as a consequence of mucosal injury that resulted from the foreign body, given his age it is appropriate to do an elective colonoscopy to exclude the possibility of malig ayesha (in addition to colonic adenocarcinoma, he may be at risk for HPV-related malignancy, though no masses were felt on GI fellow's rectal exam) as a source of his bleeding. We can arrange for an outpatient colonoscopy here at [facility], or this can be done locally if t he patient prefers not to travel to [place] for this. Larry Lindsey MD Fellow in Gastroenterology and Hepatology Pager [phone] ayne Brownlee M D - 04/01/2014 2:56 PM PDTMICU Attending Note HPI: 43 y/o M PMHX current ecigarette smoker, rectal foreign bodies, recent otis jar extra cted 03/25-fractured, although all glass thought removed@ OSH. No glass in rectum on f-up lauren ging per OSH. Discharged 03/29- readmitted @ OSH after hematochezia started last night; also given 2 uprbcs at OSH. Brown stool at [facility] and stable crit from OSH last check. I have personally reviewed the history and physical with the MICU housestaff, confirmed the salient elements of the history and independently confirmed findings. I agree with the shahriar gibbs's assessment and have participated in the creation of the plan of care, with the mati tion or exceptions as noted. Dx: 1. Rectal trauma 2. LGIB 3. Anemia, acute blood loss Assessment/Plan: ABD films to evaluate any residual foreign bodies, consult GI, cbc q4hrs, stable for rodriguez transfer if serial cbc stable. Wayne Brownlee MD, MA Pulmonary and Critical Care Medicine [id number] [facility] DEPARTMENT: [facility], [facility]- [phone] Place of Service: Date of Service: 04/01/2014 CSN: [id number] Modifiers:GC Resident Involved: yes Suggested CPT: 97158 Critical Care, Initial 30-74 minutes Critical Care Time: I spent 30 minutes in the care and magagement of this patient who is cr itically ill which does not include any time spent performing procedures. documented in this encounter H&P Notes Charbel Mccallum MD,MPH - 04/01/2014 12:43 PM PDT MEDICAL INTENSIVE CARE HISTORY AND PHYSICAL / TRANSFER SUMMARY Author: CHARBEL MCCALLUM MD,MPH Attending Physician: Wayne Brownlee MD Subjective: CC: rectal bleeding HPI: Mr. Hall is a 43 y/o M with a history of prior rectal trauma related to foreign bodies who has been transferred to [facility] with recurrent LGIB and down-trending Hct concerning for possi ble need for angiography and embolectomy. He initially presented to [facility] enter on 03/25 with an impacted glass jar in his rectum. This was extracted under general a nesthesia: the glass was noted to be wedged between the ischial tuberosities and appeared to contain a zucchini-like object. Obstetrical forceps were used to retrieve the object, whic h though it fractured intra-operatively, appeared to have been completely extracted and ther e was no evidence of perforation. The patient subsequently admitted and treated with IV ant ibiotics; his diet was advanced and the patient was passing normal loose stools on stool sof teners. He was discharged on 03/29 with a three-day course of oral cipro and metronidazole for prophylaxis as well as stool softeners. The patient reports doing well, having regular loose BMs on stool softeners after discharge until yesterday evening at approximately 11 PM, when he was in the shower and began to have bright red blood per rectum after straining to urinate. He attributed this recurrent bleedi ng to additional straining and heavy lifting that he had done He returned to the emergency department at [facility] where he was observed to pass additional bright red blood and bl ood clots from his rectum - reportedly passing approximately 1.7L of BRBPR over the course o f his time there this morning. He initially presented with a T of 36.8, BP of 120/95, HR of 107, RR 20, and SpO2 of 98% on RA. His BP dropped there to a riaz of 89/70 with a HR of 9 6 by 0900, and his Hct down-trended from 35 to 30.8. He was given 1L of D5LR, 1.25L NS, and 2u PRBCs, then subsequently transferred here to [facility] given concern that he might need angio graphy and embolectomy for this problem. Currently, the patient is comfortable and has no complaints. Rectal bleeding has stopped, and the patient has passed one normal brown-colored loose stool without e/o red streaks sinc e arrival this morning. No abdominal pain or rectal pain. Denies repeat penetration of rec jhony with foreign bodies since discharge. No lightheadedness or dizziness. No CP or SOB. In the MICU, the patient was monitored over the course of the day. Hct uptrended. Vital s igns were stable. No further rectal bleeding. Pt is eager to be discharged, but has to tra fransisca a long distance home. Pt desires confidentiality from family / friends. ROS: A twelve-point review of system was conducted and was negative except per HPI. PMHx: # Rectal Foreign Bodies - presentation 03/25 @ [facility] in [place], [place] with glass jar - approximately 3 prior episodes, per report PSHx: None SocHx: Pt lives in [place], [place]. He has a history of methamphetamine use (smokes this). Dri nks approx 5-10 20oz beers per week. Smokes e-cigarettes. FamHx: Deferred Medications: None currently. Discharged on 03/29 with a 3-day course of cipro and stool softeners but co mpleted these. Allergies: Allergies No Known Allergies Objective: Vital Signs: Last 24 hour min/max Temp: 36.5 C (97.7 F) Temp Min: 36.5 C (97.7 F) Max: 36.5 C (97.7 F) Pulse: 81 Pulse Min: 70 Max: 95 Resp: 17 Resp Min: 12 Max: 18 BP: 112/69 mmHg BP Min: 86/56 Max: 112/69 SpO2: 98 % SpO2 Min: 97 % Max: 100 % Body mass index is 22.1 kg/(m^2). Ventilator/Respiratory Settings & Data: RA Physical Examination: General: WN WM, well groomed in NAD Neuro: AOx3, following commands, CN grossly intact, moving all ext HEENT: PERRL, anicteric sclerae, MMM, poor dentition Respiratory: CTAB, no R/R/W CV: RRR, normal S1+S2, no M/R/G GI: BS present, soft, NT, ND Ext: WWP, no C/C/E Skin: Warm, dry, no rashes Chemistries / General Laboratory Data: Recent Labs 04/01/14 1127 04/01/14 1154 NA -- 140 K -- 5.2* CL -- 107 BICARB -- 23 BUN -- 18 CR -- 1.06 GLU 118* 99 CA -- 8.1* MG -- 1.9 Recent Labs 04/01/14 1154 AST 41 ALT 26 AP 51* TBILI 0.9 TP 6.2* ALB 3.4* OSH Labs: - normal CMP Hematologic Laboratory Data: CBC with diff last 72 hours (or 3 results) Recent Labs 04/01/14 1154 HB 10.9* HCT 32.2* OSH Labs: Hb 10.8 04/01/2014 @ 0712 Hct 30.8 04/01/2014 @ 0712 Hb 11.6 04/01/2014 @ 0405 Hct 33.6 04/01/2014 @ 0405 Hb 12.2 04/01/2014 @ 0123 Hct 35.0 04/01/2014 @ 0123 T&S O+, neg AB screen 04/01/2014 Lab Results Component Value Date INRPT 1.15 04/01/2014 Urine Studies: None Imaging Data: ABD 2 VIEW - 04/01: pending Assessment/Plan: Mr. Hall is a 43 y/o M with a history of rectal foreign bodies and recent extraction of a glass jar from his rectum who was transferred to [facility] for further evaluation and management of recurrent rectal bleeding. He is now hemodynamically stable and rectal bleeding appears to have resolved. GI: # Rectal Bleeding: History of multiple prior episodes of rectal trauma and rectal foreign bodies, with recent extraction of a fragmented glass jar from his rectum on 03/25. Reportedly had 1.7L BRBPR at OSH, but none yet here, and hemodynamically stable. Rectal exam deferred given threat of r etained glass fragments. Recurrent bleeding now likely c/w bleeding from previous laceration s - perhaps partially dehisced in the setting of Valsalva / straining. But also may represe nt repeat anal penetration with foreign bodies, given this has been a recurrent issue for th e patient in the face of repeated advice not to pursue this sort of activity. Alternatively , though all fragments were felt to have been accounted for, there may have been retained sh ards of glass in the patient's rectum from the glass jar he previously placed there, or ther e may have been additional objects not seen during the last procedure. Overall, I am reassu red that the patient has had a regular loose brown BM here that nursing has confirmed, likel y indicative that the bleeding has abated and less c/w persistent object(s). Repeat CBC wit h H&H increase - pt can be transferred to the floor, but should probably have f/u with GI as an o/p. If rebleeds, will need a tagged RBC scan to identify the source, as well as GI vs. IR consult. - trend CBC q12 - rectal view plain radiographs to r/o repeat foreign bodies / retained objects - tagged RBC scan if re-bleeds - consider GI consult if persistent foreign body/bodies and/or rebleed - consider IR consult if brisk re-bleed not easily accessible with c-scope HEME/ONC: # Anemia: Hb acutely dropped from 12.2 to 10.9 over the previous night in the setting of LGIB. - monitor CBC as above - T&S - transfusions PRN Hb < 7 or major active bleeding NEURO: No active issues. PULM: No active issues. CV: No active issues. ID: No active issues. RENAL / : No active issues. ELECTROLYTES: No active issues. ENDO: No active issues. ROUTINE ICU CARE: Fluids / Diet - Full liquid, advance as tolerated Analgesia - n/a Sedation - none Thromboprophylaxis - none - c/i with GIB HOB - >30 deg Ulcer prophylaxis - none Glycemic control - monitor Bowel regimen - Senna-docusate DISPO: Floor status - N.B. Pt desires full confidentiality regarding his medical care, includes and other family CODE: FULL Patient was staffed with Dr. Wayne Brownlee MD, who agrees with my assessment and plan. Charbel Mccallum MD, MPH Internal Medicine, PGY-1 Pager [phone] documented in this encounter Consult Notes Inocente Meyers MD - 04/02/2014 2:42 PM PDTFormatting of this note might be different fro m the original. Gastroenterology Consult Note 04/02/2014 REASON FOR CONSULT: Rectal bleeding in setting of recent foreign body insertion REFERRING TEAM/ATTENDING: Medicine IMPRESSION Mr. Hall is a 43 year-old man with a past medical history significant for illicit drug use and prior insertion of foreign bodies into rectum, who is admitted after developing hematoc hezia in the setting of recent foreign body insertion into rectum. No ongoing evidence of hematochezia; Hgb is stable, hemodynamics are normal. Rectal without evidence of melena or perianal lesions. Differential for recent bleeding includes mucosal t rauma from glass shard, but no evidence has retained glass shard given recent imaging. Would continue to monitor today. If hematochezia recurs, would consider flex sig as inpatient. If does not recur, would plan for outpatient colonoscopy, either at [facility], or nearer to his greg e. Thank you for this consult; we will continue to follow. This plan was discussed and formula valarie with the gastroenterology attending, Dr. Meyers and the senior GI fellow, Dr. Korey Chin MD Fellow, Gastroenterology Pgr [phone] Attending Attesta tion: I personally interviewed the patient, performed the relevant elements of the physical exami nation, and formulated the assessment and plan with Dr. Chin. See Dr. Chin' note fo r further details. 43 year old male with resolving rectal bleeding after rectal foreign bod y insertion and removal (broken glass). Will continue to monitor. Plan for outpatient colo noscopy. Inocente Meyers MD [facility] Department of Gastroenterology [facility] DEPARTMENT: - [phone] Place of Service: [facility] CSN: [id number] Suggested Modifiers: GC - Resident Involved Suggested Level of Care: 12183 - Initial, Detailed; low complex 30 min HISTORY OF PRESENT ILLNESS David Hall is a 43 year-old man with a past medical history significant for illicit drug use and prior insertion of foreign bodies into rectum, who is admitted after developing hematochezia in the setting of recent foreign body insertion into rectum. Mr. Hall first presented to an OSH on 03/25 with stuck foreign body in rectum (otis jar wi th a "zucchini" within it); this was removed under anesthesia, during which the jar fracture d; all glass fragments were thought to be removed; he was monitored for a few days and then sent home with antibiotics. At home, he developed sobia hematochezia in the setting of straining when lifting some heWildfang y boards. No pain. Thought about 1.5 L came out. Had mild lightheadedness, so presented kenan lobo to local ED; arrival BP was 80's/50's; concern for active hemorrhage prompted [facility] t r[facility] to [facility]; on arrival, BPs steady, had recevied 2 U pRBCs; passing brown BMs. This morning, reports no ongoing hematochezia. Says stools are getting darker. No pain. No prior history of BRBPR. REVIEW OF SYSTEMS A complete 11-point ROS was performed and is negative other than that stated in the HPI. PAST MEDICAL HISTORY Illicit drug use FAMILY HISTORY Non-contributory SOCIAL HISTORY Lives near [facility]. . Works construction. Occ meth use. OUTPATIENT MEDICATIONS none INPATIENT MEDICATIONS senna-docusate (SENOKOT S) 8.6-50 mg 1 tablet, 1 tablet, oral, DAILY ALLERGIES: No Known Allergies PHYSICAL EXAM BP 92/57 | Pulse 82 | Temp 36.5 C (97.7 F) | RR 14 | Ht 1.88 m (6' 2") | Wt 78.1 kg (17 2 lb 2.9 oz) | SpO2 99% | BMI 22.1 kg/(m^2): Systolic (24hrs), Av mmHg, Min:92 mmHg, Ma x:112 mmHg / Diastolic (24hrs), Av mmHg, Min:57 mmHg, Max:75 mmHg Pulse Av.1 Min: 61 Max: 87 Temp Av.4 C (97.6 F) Min: 36.3 C (97.3 F) Max: 36.6 C (97.9 F) Resp Av.3 Min: 9 Max: 16 SpO2 Av.3 % Min: 98 % Max: 100 % Gen: Well-appearing man of stated age lying in bed in NAD. HEENT: Sclera clear. MMM. CV: Pulse regular. Pulm: Breathing comfortably. Abd: Bowel sounds present. Soft, nondistended. Nontender to light and deep palpation in all quadrants. No hepatomegaly appreciated. Rectal: Poor anal tone. No perianal lesions. No blood on gloved finger. Ext: Warm, well-perfused. Psych: Alert, oriented. Neuro: Grossly intact. LABS Recent Labs 04/01/14 1154 04/01/14 1538 04/02/14 0114 WBC 10.10 9.89 7.29 HB 10.9* 11.4* 9.4* HCT 32.2* 34.7* 28.1* PLT 268 324 275 NEUTROPERC 63.8 -- -- LYMPHPERC 22.9 -- -- MONOPERC 8.0 -- -- BASOPERC 0.9 -- -- EOSPERC 2.4 -- -- Recent Labs 04/01/14 1154 04/01/14 1355 04/02/14 0114 NA 140 -- 140 K 5.2* 4.2 3.6 CL 107 -- 105 BICARB 23 -- 27 BUN 18 -- 22* CR 1.06 -- 1.23 CA 8.1* -- 8.1* MG 1.9 -- -- Liver Tests: Last 72 hours (or 3 results) Recent Labs 04/01/14 1154 AST 41 ALT 26 TBILI 0.9 AP 51* ALB 3.4* TP 6.2* documented in this en counter Miscellaneous Notes Scan - Nic, Faculty - 04/05/2014 12:28 AM PDTElectronically signed by Faculty Other at 12:28 AM PDTScan - Nic, Faculty - 04/04/2014 11:32 PM PDT can - Nic, Faculty - 04/04/2014 10:56 PM PDTElec tronically signed by Faculty Other at 04/04/2014 10:56 PM PDTScan - Nic, Faculty - 014 8:53 PM PDT can - Osbaldo joshi Faculty - 04/04/2014 8:53 PM PDT 8: 53 PM PDTHandoff - Silvia Pringle, HEATHER - 04/03/2014 7:04 AM PDTNursing Handoff Report Primary focus of stay: Foreign body in rectum. Removed at [facility]. Went home & back to ER next night last night after episode of rectal bleeding. 2 U PRBC here, then geovanni samson flighted to [facility]. PMHX current ecigarette smoker, rectal foreign bodies, recent otis garcia ar extracted 03/25-fractured, although all glass thought to have been removed. does n ot know and patient is adamant she is not told. She is always at bedside. Pertinent physical findings: Neuro- AOx4, independent in room. Hx of ETOH (2-3 20oz beers per week) and meth abuse (inha lation, last use 03/31) Resp- WNL CV- WNL GI/-Reg diet, per pt, he had a few BM yesterday but no signs and symptoms of bleeding Skin- intact, tattoos Labs- H&H dropped: Keeping overnight again to see if needs further assessment for continue d drop. Orders to follow up on: Last pain assessment/reassessment: denied pain all shift Psych/social issues: family from [place]. Supportive and mother. Last patient visit (i.e. Falls/Activity/Comfort/Environment/Toileting/Skin): Walking around . Down to smoke several times during the day. No issues. Anticipated or pending procedures: dc when H&H stable. Hopeful for Tuesday. Goals: 1 Patient will show no signs or symptoms of bleeding. 2 Patient will have adequate pain management throughout shift. 3 Patient will have adequate sleep/rest during shift. Interventions: 1: Monitor for bleeding, H&H, INR. Administer medications as needed. Collaborate with team. Utilize bleeding precautions. 2: Assess level of pain q4 hours, administer PRN pain meds, offer non-pharm pain reduction interventions such as ice/heat, repositioning, distraction and consult with providers if christine n is not managed 3: Cluster care, adjust lighting and room temperature to patient request, maintain patient' s usual bed-time routine as best as possible, provide calm/quite environment conducive for s leeping. Interventions that worked/didn't work: Interventions worked. My recommendations forward: continue as above Patient Stability: Moderately stable. andoff - Aubree Fernandez - 04/02/2014 5:42 PM PDTNursing Handoff Report Primary focus of stay: Foreign body in rectum. Removed at [facility]. Went home & back to ER next night last night after episode of rectal bleeding. 2 U PRBC here, then geovanni samson flighted to [facility]. PMHX current ecigarette smoker, rectal foreign bodies, recent otis garcia ar extracted 03/25-fractured, although all glass thought to have been removed. does n ot know and patient is adamant she is not told. She is always at bedside. Pertinent physical findings: Neuro- AOx4, independent in room. Hx of ETOH (2-3 20oz beers per week) and meth abuse (inha lation, last use 03/31) Resp- RR 10-16, 100%sat on RA CV- NSR, HR 60-80, BP stable 100s/60s GI/-Reg diet, tolerating without issue, 2 medium BM 04/01- brown, no sign on blood. BRP Skin- intact, tattoos Labs- H&H dropped: Keeping overnight again to see if needs further assessment for continue d drop. Stool not bloody. Orders to follow up on: Last pain assessment/reassessment: denied pain all shift Psych/social issues: family from [place]. Supportive and mother. Last patient visit (i.e. Falls/Activity/Comfort/Environment/Toileting/Skin): Walking around . Down to smoke several times during the day. No issues. Anticipated or pending procedures: dc when H&H stable. Hopeful for Tuesday. Goals: 1 Patient will show no signs or symptoms of bleeding. 2 Patient will have adequate pain management throughout shift. 3 Patient will have adequate sleep/rest during shift. Interventions: 1: Monitor for bleeding, H&H, INR. Administer medications as needed. Collaborate with team. Utilize bleeding precautions. 2: Assess level of pain q4 hours, administer PRN pain meds, offer non-pharm pain reduction interventions such as ice/heat, repositioning, distraction and consult with providers if christine n is not managed 3: Cluster care, adjust lighting and room temperature to patient request, maintain patient' s usual bed-time routine as best as possible, provide calm/quite environment conducive for s leeping. Interventions that worked/didn't work: Interventions worked. My recommendations forward: continue as above Patient Stability: Moderately stable. lan of Care - Willie Isbell - 04/02/2014 8:59 AM PDTProblem: Case Management Goals Goal: Discharge Needs Met Case Management Initial Assessment Reason for Admission: L GI Bleed Admitted From: Outside Hospital/ [facility] Emergency Contact: Extended Emergency Contact Information Primary Emergency Contact: Abdon Vazquez Address: [address] [place] [address] Relation: Spouse Past Medical History: Interhospital Transfer [1] , No admission procedures for hospital en counter. Lives With: child(lily), adult;spouse;parent(s) Living Arrangement: house Functional Level Prior to Admission: 0-->independent Transportation Available: Yes,Medicaid Equipment Currently used at Home/DME Provider: none Home Health/Infusion Agency: NA Insurance/Funding: @[employer]@, [employer] Assessment: Mr. Hall is a 43 y/o M with a history of rectal foreign bodies and recent extr action of a glass jar from his rectum who was transferred to [facility] for further evaluation and management of recurrent rectal bleeding. He is now hemodynamically stable and rectal bleedi ng appears to have resolved. Anticipated Discharge Needs: Anticipated Discharge Disposition: home. Per chart review and/ or discussion with patient/family, no need for discharge planning assistance from RN AURE iden tified at this time. Please see other disciplines' progress notes for their discharge recomm endations. Please page rn field case manager if any CM arranged [place] [id number] Assessment done by: Fiorella Isbell ransfer Note - Marcella Dos Santos MD,MPH - 04/02/2014 3:21 AM PDT Transfer Accept/Progress Note For full details please see Dr. Mccallum's H&P from 04/01. In brief, Mr. Hall is a 43 yo mal e with history of prior rectal trauma related to a forgeign body who was transferred to [facility] with recurrent LGIB and down trending Hct concerning for possible need for angiogram and em bolectomy. Since his arrival to [facility] his rectal bleeding has stopped and he has passed adonay ral brown stools without evidence of blood. His Hct has continued to trend up since admissi on here. Upon interview patient reports he has had 2 brown bowel movements without blood since trans jarad to the floor from the MICU. Denies fever, chills, SOB, chest and abdominal pain. No li ghtheadedness or dizziness. Patient was seen the in presence of a visitor and he has reques valarie confidentiality from family/friends so the interview was kept short. Both he and his vi sitor are tired and they would like to have a good night's sleep. Physical Examination: Last 24 hour min/max Temp: 36.4 C (97.5 F) Temp Min: 36.3 C (97.3 F) Max: 36.6 C (97.9 F) Pulse: 78 Pulse Min: 61 Max: 95 Resp: 16 Resp Min: 9 Max: 18 BP: 94/61 mmHg BP Min: 86/56 Max: 112/70 SpO2: 98 % SpO2 Min: 97 % Max: 100 % Body mass index is 22.1 kg/(m^2). General: CM lying in bed with female visitor in NAD HEENT: NCAT, sclerae anicteric, MMM Lungs: anteriorly CTAB Heart: RRR; no m/r/g Abd: soft, NT/ND, +BS Neuro: AOx3; grossly intact, moves all extremities Ext: WWP; no edema Laboratory Interpretation: CBC-stable with Hb 10.9-->11.4 Imaging Interpretation: Abdominal film-no foreign body with normal intestinal gas pattern Assessment and Plan Middle aged male with history of rectal foreign bodies and recent extraction of a glass jar from his rectum who represented to OSH with recurrent bleeding in the setting of straining to urinate who was transferred to [facility] for further evaluation and management of recurrent re ctal bleeding now stable for transfer from the MICU to the floor. #Rectal bleeding-History of multiple prior episodes of rectal trauma and foreign bodies wit h recent extraction of a fragmented jar with recurrent bleeding after reported straining for urination. Since transferred here, patient has been hemodynamically stable with improving counts and several normal brown BMs. Abdominal film earlier today per radiology was normal with no retained foreign bodies. Will continue to trend H&H and patient will f/u with GI as an outpatient. If patient rebleeds, will need a tagged RBC scan to identify source of blee d. If he remains stable overnight could possibly be discharged in the early afternoon. -trend CBC Q12h -f/u with GI as outpatient -if rebleeds-->tagged RBC scan and consider GI consult #Anemia-Per report patient lost 1.7L BRBPR at OSH with Hb drop from 12.2 to 10.9. Received 2 units pRBCs prior to transfer. Counts have continued to increase since transferred. Ramin l continue to monitor CBC Q12h and transfuse for Hb <7 or if patient has recurrent brisk ble ed. Diet-full liquid with advancement as tolerated Proph-contraindicated Dispo-pending continued stable H/H CODE STATUS-FULL CODE This patient will be staffed with the attending of record within the next 24 hours. Marcella Dos Santos MD MPH PGY-1 Pager: [phone] andoff - Ewa Garner RN - 04/02/2014 1:21 AM PDTNursing Handoff Report Primary focus of stay: FB retrieved a few days ago from rectum in [facility]. Dc'd and returned back to ER last night after episode of rectal bleeding in the shower. Received 2 U PRBC and life flighted to [facility]. Blood pressures and H/H stable since admission to [facility]. No further bleeding episodes. PMHX current ecigarette smoker, rectal foreign bodies, recent otis jar extracted 03/25-frac tured, although all glass thought to have been removed.. Pertinent physical findings: Neuro- AOx4, independent in room. Hx of ETOH (2-3 20oz beers per week) and meth abuse (inh alation, last use 03/31) Resp- RR 10-16, 100%sat on RA CV- NSR, HR 60-80, BP stable 100s/60s GI/-Reg diet, tolerating without issue, 2 medium BM 04/01- brown, no sign on blood. BRP Skin- intact, tattoos Labs- H&H dropped:11.7-->9.4 & 37.7 --> 28.1 over 12h Orders to follow up on:Probably D/C today Last pain assessment/reassessment: denied pain all shift Psych/social issues: family from [place] wants to stay overnight and family will co me back to pickle sorter tomorrow if pt is dc'd Last patient visit (i.e. Falls/Activity/Comfort/Environment/Toileting/Skin): pt resting in bed getting ready to order breakfast. Denies pain Anticipated or pending procedures: dc tomorrow most likely Goals: 1 Patient will show no signs or symptoms of bleeding. 2 Patient will have adequate pain management throughout shift. 3 Patient will have adequate sleep/rest during shift. Interventions: 1: Monitor for bleeding, H&H, INR. Administer medications as needed. Collaborate with colten braxton. Utilize bleeding precautions. 2: Assess level of pain q4 hours, administer PRN pain meds, offer non-pharm pain reduction interventions such as ice/heat, repositioning, distraction and consult with providers if christine n is not managed 3: Cluster care, adjust lighting and room temperature to patient request, maintain patient' s usual bed-time routine as best as possible, provide calm/quite environment conducive for s leeping. Interventions that worked/didn't work:worked, H&H dropped overnight with no signs of bleedi kimberly heath MD My recommendations forward:continue with plan and maintain bleeding precautions Patient Stability:Moderately Unstable Handtanya - Soheila Borges RN - 04/01/2014 5:09 PM PDTNursing Handoff Report Primary focus of stay: FB retrieved a few days ago from rectum in [facility]. Dc'd and returned back to ER last night after episode of rectal bleeding in the shower. Received 2 U PRBC and life flighted to [facility]. Blood pressures and H/H stable since admission to [facility]. No further bleeding episodes. PMHX current ecigarette smoker, rectal foreign bodies, recent otis jar extracted 03/25-frac tured, although all glass thought to have been removed.. Pertinent physical findings: Neuro- AOx4, independent in room. Hx of ETOH (2-3 20oz beers per week) and meth abuse. (inhalation, last use yesterday) Pain-denies Resp- RR 10-16, 100%sat on RA CV- NSR, HR 60-80 BP stable 100s/60s GI-full liquid diet. Tolerating without issue. Ok to advance 2 medium BM- brown, no sign on blood Urinated in commode Skin- intact, tattoos Orders to follow up on: xray ordered. Transportation will take him on the way to [facility] Last pain assessment/reassessment: denies pain Psych/social issues: family from [place] wants to stay overnight and family will co me back to pickle sorter tomorrow if pt is dc'd Last patient visit (i.e. Falls/Activity/Comfort/Environment/Toileting/Skin): Anticipated or pending procedures: dc tomorrow most likely [facility] Marilia Santiago - 04/01/2014 11:00 AM PDTLF12 pt resting comfortably, BP 100/61, HR 90, RR 19, sat 99 % ra flr advised [facility] Lisa Malik - 04/01/2014 10:37 AM PDT12 k [facility] - 04/01/2014 9:59 AM PDTPer LF dispat ch [facility] 8:18 AM PDTgrp 18 [facility] 04/01/2014 8:17 AM PDT8:08 AM 04/01/2014 DR. Laird Ocala, PT: David Hall : [address] Brownlee 8:10 AM 04/01/2014 connected 'sean, 43 yom, admitted to [facility] with FB impacted in rectum, during extraction FB fr agmented, all where retrieved but had lacerations, was released, returned with more rectal b lding, last bp 94 document ed in this encounter Plan of Treatment +--------+ + + + + | Date | Type | Specialty | Care Team | Description | +--------+ + + + + | 08/07/ | Telephone-S | Pre-operative | 4, [facility] [address] | | | 2019 | cheduled | Medicine | [address] | | | | | | [place] [address] | | +--------+ + + + + | 08/13/ | Office | Surgery | Cyndie Hunt MD | | | 2019 | Visit | | [address] | | | | | | [place] [facility] | | | | | | [place] [address] | | | | | | [phone] | | | | | | | | +--------+ + + + + | 08/14/ | Procedure | Surgery | | | | 2020 | Pass | | | | +--------+ + + + + | 09/10/ | Telephone-S | Surgery | Cyndie Hunt MD | | | 2020 | oscarled | | [address] | | | | | | [place], | | | | | | [place] [address] | | | | | | [phone] | | | | | | | | +--------+ + + + + + +------+--------+ + + | Name | Type | Priori | Associated Diagnoses | Order Schedule | | | | ty | | | + +------+--------+ + + | TYPE AND SCREEN | Lab | Urgent | | Lab Add Ons for 1 | | | | | | Occurrences starting | | | | | | 04/01/2014 until | | | | | | 04/01/2014 | + +------+--------+ + + documented as of this encounter Procedures + +--------+ + + + | Procedure Name | Priori | Date/Time | Associated Diagnosis | Comments | | | ty | | | | + +--------+ + + + | CBC (HEMOGRAM) ONLY | Urgent | 04/03/2014 | | Results for this | | | | 3:05 AM | | procedure are in the | | | | PDT | | results section. | + +--------+ + + + | BASIC METABOLIC SET | Urgent | 04/03/2014 | | Results for this | | (NA, K, CL, TCO2, | | 3:05 AM | | procedure are in the | | BUN, CR, GLU, CA) | | PDT | | results section. | + +--------+ + + + | CBC ONLY | Urgent | 04/03/2014 | | Results for this | | | | 3:05 AM | | procedure are in the | | | | PDT | | results section. | + +--------+ + + + | CBC (HEMOGRAM) ONLY | Urgent | 04/02/2014 | | Results for this | | | | 3:16 PM | | procedure are in the | | | | PDT | | results section. | + +--------+ + + + | CBC ONLY | Urgent | 04/02/2014 | | Results for this | | | | 3:16 PM | | procedure are in the | | | | PDT | | results section. | + +--------+ + + + | CAPILLARY BLOOD | Routin | 04/02/2014 | | Results for this | | GLUCOSE (NO CHG), | e | 7:50 AM | | procedure are in the | | POC | | PDT | | results section. | + +--------+ + + + | CBC (HEMOGRAM) ONLY | Urgent | 04/02/2014 | | Results for this | | | | 1:14 AM | | procedure are in the | | | | PDT | | results section. | + +--------+ + + + | BASIC METABOLIC SET | Urgent | 04/02/2014 | | Results for this | | (NA, K, CL, TCO2, | | 1:14 AM | | procedure are in the | | BUN, CR, GLU, CA) | | PDT | | results section. | + +--------+ + + + | CBC ONLY | Urgent | 04/02/2014 | | Results for this | | | | 1:14 AM | | procedure are in the | | | | PDT | | results section. | + +--------+ + + + | CAPILLARY BLOOD | Routin | 04/02/2014 | | Results for this | | GLUCOSE (NO CHG), | e | 12:20 AM | | procedure are in the | | POC | | PDT | | results section. | + +--------+ + + + | X-RAY ABDOMEN 2 | Urgent | 04/01/2014 | | Results for this | | VIEWS | | 6:34 PM | | procedure are in the | | | | PDT | | results section. | + +--------+ + + + | CBC (HEMOGRAM) ONLY | Urgent | 04/01/2014 | | Results for this | | | | 3:38 PM | | procedure are in the | | | | PDT | | results section. | + +--------+ + + + | CBC ONLY | Urgent | 04/01/2014 | | Results for this | | | | 3:38 PM | | procedure are in the | | | | PDT | | results section. | + +--------+ + + + | POTASSIUM, PLASMA | Urgent | 04/01/2014 | | Results for this | | | | 1:55 PM | | procedure are in the | | | | PDT | | results section. | + +--------+ + + + | RAINBOW HOLD TUBE - | Routin | 04/01/2014 | | | | PURPLE TOP | e | 12:06 PM | | | | | | PDT | | | + +--------+ + + + | CBC AND AUTO DIFF | Urgent | 04/01/2014 | | Results for this | | | | 11:54 AM | | procedure are in the | | | | PDT | | results section. | + +--------+ + + + | INR | Urgent | 04/01/2014 | | Results for this | | | | 11:54 AM | | procedure are in the | | | | PDT | | results section. | + +--------+ + + + | CBC, WITH | Urgent | 04/01/2014 | | Results for this | | DIFFERENTIAL | | 11:54 AM | | procedure are in the | | | | PDT | | results section. | + +--------+ + + + | COMPLETE METABOLIC | Urgent | 04/01/2014 | | Results for this | | SET | | 11:54 AM | | procedure are in the | | (NA,K,CL,CO2,BUN,CRE | | PDT | | results section. | | AT,GLUC,CA,AST,ALT,B | | | | | | AMERICO TOTAL,ALK | | | | | | PHOS,ALB,PROT TOTAL) | | | | | + +--------+ + + + | APTT (ACT. PART. | Routin | 04/01/2014 | | Results for this | | THROMBO TIME) | e | 11:54 AM | | procedure are in the | | | | PDT | | results section. | + +--------+ + + + | MAGNESIUM, PLASMA | Urgent | 04/01/2014 | | Results for this | | | | 11:54 AM | | procedure are in the | | | | PDT | | results section. | + +--------+ + + + | CAPILLARY BLOOD | Routin | 04/01/2014 | | Results for this | | GLUCOSE (NO CHG), | e | 11:27 AM | | procedure are in the | | POC | | PDT | | results section. | + +--------+ + + + documented in this encounter Results BASIC METABOLIC SET (NA, K, CL, TCO2, BUN, CR, GLU, CA) (04/03/2014 3:05 AM PDT) + +---------+ + + + | Component | Value | Ref Range | Performed | Pathologist | | | | | At | Signature | + +---------+ + + + | GLUCOSE, | 108 (H) | 60 - 99 mg/dL | [facility] | | | PLASMA | | | LABORATORY | | | (LAB) | | | SERVICES, | | | | | | CORE | | + +---------+ + + + | BUN, PLASMA | 22 (H) | 6 - 20 mg/dL | [facility] | | | (LAB) | | | LABORATORY | | | | | | SERVICES, | | | | | | CORE | | + +---------+ + + + | CREATININE | 1.16 | 0.70 - 1.30 | [facility] | | | PLASMA | | mg/dL | LABORATORY | | | (LAB) | | | SERVICES, | | | | | | CORE | | + +---------+ + + + | EGFR | >60 | >60 mL/min | [facility] | | | - | | | LABORATORY | | | S[place]GALESE | | | SERVICES, | | | | | | CORE | | + +---------+ + + + | EGFR NON | >60 | >60 mL/min | [facility] | | | -ELIUD | | | LABORATORY | | | RICAN | | | SERVICES, | | | | | | CORE | | + +---------+ + + + | SODIUM, | 141 | 136 - 145 | [facility] | | | PLASMA | | mmol/L | LABORATORY | | | (LAB) | | | SERVICES, | | | | | | CORE | | + +---------+ + + + | POTASSIUM, | 4.0 | 3.4 - 5.0 | [facility] | | | PLASMA | | mmol/L | LABORATORY | | | (LAB) | | | SERVICES, | | | | | | CORE | | + +---------+ + + + | CHLORIDE, | 107 | 97 - 108 mmol/L | [facility] | | | PLASMA | | | LABORATORY | | | (LAB) | | | SERVICES, | | | | | | CORE | | + +---------+ + + + | TOTAL CO2, | 27 | 21 - 32 mmol/L | [facility] | | | PLASMA | | | LABORATORY | | | (LAB) | | | SERVICES, | | | | | | CORE | | + +---------+ + + + | CALCIUM, | 8.3 (L) | 8.6 - 10.2 | [facility] | | | PLASMA | | mg/dL | LABORATORY | | | (LAB) | | | SERVICES, | | | | | | CORE | | + +---------+ + + + | ANION GAP | 7 | mmol/L | [facility] | | | | | | LABORATORY | | | | | | SERVICES, | | | | | | CORE | | + +---------+ + + + | POTASSIUM | No Hemo | | [facility] | | | CMNT | | | LABORATORY | | | | | | SERVICES, | | | | | | CORE | | + +---------+ + + + + + | Specimen | + + | Blood - Blood | + + + + + | Narrative | Performed At | + + + | GFR is estimated using the MDRD equation recommended by the | [facility] | | National Kidney Disease Education Program. Estimated GFR | LABORATORY | | Interpretive Information: <60 mL/min/1.73 sq m | SERVICES, CORE | | Chronic Kidney Disease <15 mL/min/1.73 sq m | | | Kidney Failure Estimated GFR greater that 60 mL/min/1.73 sq m is of | | | limited clinical value. The MDRD equation is not valid in the | | | following situations: - Patients under 18 years of age - Severe | | | malnutrition or obesity - Vegetarian diet - Rapidly changing kidney | | | function | | + + + + + + + + | Performing | Address | City/State/Zipcode | Phone Number | | Organization | | | | + + + + + | [facility] | [address] | [place] [address] | | | SERVICES, CORE | [address] | | | + + + + + CBC (HEMOGRAM) ONLY (04/03/2014 3:05 AM PDT) + + + + + + | Component | Value | Ref Range | Performed | Pathologist | | | | | At | Signature | + + + + + + | WHITE CELL | 6.35 | 4.40 - 11.00 | [facility] | | | COUNT | | K/cu mm | LABORATORY | | | | | | SERVICES, | | | | | | CORE | | + + + + + + | RED CELL | 2.96 (L) | 4.50 - 6.00 | [facility] | | | COUNT | | M/cu mm | LABORATORY | | | | | | SERVICES, | | | | | | CORE | | + + + + + + | HEMOGLOBIN | 9.0 (L) | 13.5 - 17.5 | [facility] | | | | | g/dL | LABORATORY | | | | | | SERVICES, | | | | | | CORE | | + + + + + + | HEMATOCRIT | 26.1 (L) | 41.0 - 53.0 % | [facility] | | | | | | LABORATORY | | | | | | SERVICES, | | | | | | CORE | | + + + + + + | MCV | 88.2 | 80.0 - 96.0 fL | [facility] | | | | | | LABORATORY | | | | | | SERVICES, | | | | | | CORE | | + + + + + + | MCHC | 34.5 | 33.0 - 35.5 | [facility] | | | | | g/dL | LABORATORY | | | | | | SERVICES, | | | | | | CORE | | + + + + + + | RDW SD | 43.6 | 35.1 - 46.3 fL | [facility] | | | | | | LABORATORY | | | | | | SERVICES, | | | | | | CORE | | + + + + + + | PLATELET | 273 | 150 - 400 K/cu | [facility] | | | COUNT | | mm | LABORATORY | | | | | | SERVICES, | | | | | | CORE | | + + + + + + | MPV | 9.1 (L) | 9.7 - 12.3 fL | [facility] | | | | | | LABORATORY | | | | | | SERVICES, | | | | | | CORE | | + + + + + + | NRBC% | 0.0 | 0.0 - 0.3 % | [facility] | | | | | | LABORATORY | | | | | | SERVICES, | | | | | | CORE | | + + + + + + | NRBC# | 0.00 | 0.00 - 0.02 | [facility] | | | | | K/cu mm | LABORATORY | | | | | | SERVICES, | | | | | | CORE | | + + + + + + + + | Specimen | + + | Blood - Blood | + + + + + + + | Performing | Address | City/State/Zipcode | Phone Number | | Organization | | | | + + + + + | [facility] | [address] | [place] [address] | | | SERVICES, CORE | [address] | | | + + + + + CBC (HEMOGRAM) ONLY (04/02/2014 3:16 PM PDT) + + + + + + | Component | Value | Ref Range | Performed | Pathologist | | | | | At | Signature | + + + + + + | WHITE CELL | 6.42 | 4.40 - 11.00 | [facility] | | | COUNT | | K/cu mm | LABORATORY | | | | | | SERVICES, | | | | | | CORE | | + + + + + + | RED CELL | 3.03 (L) | 4.50 - 6.00 | [facility] | | | COUNT | | M/cu mm | LABORATORY | | | | | | SERVICES, | | | | | | CORE | | + + + + + + | HEMOGLOBIN | 9.3 (L) | 13.5 - 17.5 | [facility] | | | | | g/dL | LABORATORY | | | | | | SERVICES, | | | | | | CORE | | + + + + + + | HEMATOCRIT | 26.6 (L) | 41.0 - 53.0 % | [facility] | | | | | | LABORATORY | | | | | | SERVICES, | | | | | | CORE | | + + + + + + | MCV | 87.8 | 80.0 - 96.0 fL | [facility] | | | | | | LABORATORY | | | | | | SERVICES, | | | | | | CORE | | + + + + + + | MCHC | 35.0 | 33.0 - 35.5 | [facility] | | | | | g/dL | LABORATORY | | | | | | SERVICES, | | | | | | CORE | | + + + + + + | RDW SD | 43.7 | 35.1 - 46.3 fL | [facility] | | | | | | LABORATORY | | | | | | SERVICES, | | | | | | CORE | | + + + + + + | PLATELET | 277 | 150 - 400 K/cu | [facility] | | | COUNT | | mm | LABORATORY | | | | | | SERVICES, | | | | | | CORE | | + + + + + + | MPV | 9.3 (L) | 9.7 - 12.3 fL | [facility] | | | | | | LABORATORY | | | | | | SERVICES, | | | | | | CORE | | + + + + + + | NRBC% | 0.0 | 0.0 - 0.3 % | [facility] | | | | | | LABORATORY | | | | | | SERVICES, | | | | | | CORE | | + + + + + + | NRBC# | 0.00 | 0.00 - 0.02 | [facility] | | | | | K/cu mm | LABORATORY | | | | | | SERVICES, | | | | | | CORE | | + + + + + + + + | Specimen | + + | Blood - Blood | + + + + + + + | Performing | Address | City/State/Zipcode | Phone Number | | Organization | | | | + + + + + | [facility] | [address] | [place] [address] | | | SERVICES, CORE | [address] | | | + + + + + CAPILLARY BLOOD GLUCOSE (CHRIS RUSSG)COSME (04/02/2014 7:50 AM PDT) + +---------+ + + + | Component | Value | Ref Range | Performed | Pathologist | | | | | At | Signature | + +---------+ + + + | BLOOD | 105 (H) | 60 - 99 mg/dL | [facility] | | | GLUCOSE, | | | [facility] | | | POC | | | [facility] | | | | | | OF CARE | | | | | | TESTS | | + +---------+ + + + + + | Specimen | + + | | + + + + + + + | Performing | Address | City/State/Zipcode | Phone Number | | Organization | | | | + + + + + | [facility] | [address] | [place], [place] | | | J[facility] GOME[facility] OF CARE | [facility] | [id number] | | | TESTS | | | | + + + + + CBC (HEMOGRAM) ONLY (04/02/2014 1:14 AM PDT) + + + + + + | Component | Value | Ref Range | Performed | Pathologist | | | | | At | Signature | + + + + + + | WHITE CELL | 7.29 | 4.40 - 11.00 | [facility] | | | COUNT | | K/cu mm | LABORATORY | | | | | | SERVICES, | | | | | | CORE | | + + + + + + | RED CELL | 3.16 (L) | 4.50 - 6.00 | [facility] | | | COUNT | | M/cu mm | LABORATORY | | | | | | SERVICES, | | | | | | CORE | | + + + + + + | HEMOGLOBIN | 9.4 (L) | 13.5 - 17.5 | [facility] | | | | | g/dL | LABORATORY | | | | | | SERVICES, | | | | | | CORE | | + + + + + + | HEMATOCRIT | 28.1 (L) | 41.0 - 53.0 % | [facility] | | | | | | LABORATORY | | | | | | SERVICES, | | | | | | CORE | | + + + + + + | MCV | 88.9 | 80.0 - 96.0 fL | [facility] | | | | | | LABORATORY | | | | | | SERVICES, | | | | | | CORE | | + + + + + + | MCHC | 33.5 | 33.0 - 35.5 | [facility] | | | | | g/dL | LABORATORY | | | | | | SERVICES, | | | | | | CORE | | + + + + + + | RDW SD | 43.8 | 35.1 - 46.3 fL | [facility] | | | | | | LABORATORY | | | | | | SERVICES, | | | | | | CORE | | + + + + + + | PLATELET | 275 | 150 - 400 K/cu | [facility] | | | COUNT | | mm | LABORATORY | | | | | | SERVICES, | | | | | | CORE | | + + + + + + | MPV | 9.6 (L) | 9.7 - 12.3 fL | [facility] | | | | | | LABORATORY | | | | | | SERVICES, | | | | | | CORE | | + + + + + + | NRBC% | 0.0 | 0.0 - 0.3 % | [facility] | | | | | | LABORATORY | | | | | | SERVICES, | | | | | | CORE | | + + + + + + | NRBC# | 0.00 | 0.00 - 0.02 | [facility] | | | | | K/cu mm | LABORATORY | | | | | | SERVICES, | | | | | | CORE | | + + + + + + + + | Specimen | + + | Blood - Blood | + + + + + + + | Performing | Address | City/State/Zipcode | Phone Number | | Organization | | | | + + + + + | [facility] | [address] | [place] [address] | | | SERVICES, BRICE | [address] | | | + + + + + BASIC METABOLIC SET (NA, K, CL, TCO2, BUN, CR, GLU, CA) (04/02/2014 1:14 AM PDT) + +---------+ + + + | Component | Value | Ref Range | Performed | Pathologist | | | | | At | Signature | + +---------+ + + + | GLUCOSE, | 115 (H) | 60 - 99 mg/dL | [facility] | | | PLASMA | | | LABORATORY | | | (LAB) | | | SERVICES, | | | | | | CORE | | + +---------+ + + + | BUN, PLASMA | 22 (H) | 6 - 20 mg/dL | [facility] | | | (LAB) | | | LABORATORY | | | | | | SERVICES, | | | | | | CORE | | + +---------+ + + + | CREATININE | 1.23 | 0.70 - 1.30 | [facility] | | | PLASMA | | mg/dL | LABORATORY | | | (LAB) | | | SERVICES, | | | | | | CORE | | + +---------+ + + + | EGFR | >60 | >60 mL/min | [facility] | | | - | | | LABORATORY | | | SENEGALESE | | | SERVICES, | | | | | | CORE | | + +---------+ + + + | EGFR NON | >60 | >60 mL/min | [facility] | | | -ELIUD | | | LABORATORY | | | RICAN | | | SERVICES, | | | | | | CORE | | + +---------+ + + + | SODIUM, | 140 | 136 - 145 | [facility] | | | PLASMA | | mmol/L | LABORATORY | | | (LAB) | | | SERVICES, | | | | | | CORE | | + +---------+ + + + | POTASSIUM, | 3.6 | 3.4 - 5.0 | [facility] | | | PLASMA | | mmol/L | LABORATORY | | | (LAB) | | | SERVICES, | | | | | | CORE | | + +---------+ + + + | CHLORIDE, | 105 | 97 - 108 mmol/L | [facility] | | | PLASMA | | | LABORATORY | | | (LAB) | | | SERVICES, | | | | | | CORE | | + +---------+ + + + | TOTAL CO2, | 27 | 21 - 32 mmol/L | [facility] | | | PLASMA | | | LABORATORY | | | (LAB) | | | SERVICES, | | | | | | CORE | | + +---------+ + + + | CALCIUM, | 8.1 (L) | 8.6 - 10.2 | [facility] | | | PLASMA | | mg/dL | LABORATORY | | | (LAB) | | | SERVICES, | | | | | | CORE | | + +---------+ + + + | ANION GAP | 8 | mmol/L | [facility] | | | | | | LABORATORY | | | | | | SERVICES, | | | | | | CORE | | + +---------+ + + + | POTASSIUM | No Hemo | | [facility] | | | CMNT | | | LABORATORY | | | | | | SERVICES, | | | | | | CORE | | + +---------+ + + + + + | Specimen | + + | Blood - Blood | + + + + + | Narrative | Performed At | + + + | GFR is estimated using the MDRD equation recommended by the | [facility] | | National Kidney Disease Education Program. Estimated GFR | LABORATORY | | Interpretive Information: <60 mL/min/1.73 sq m | SERVICES, CORE | | Chronic Kidney Disease <15 mL/min/1.73 sq m | | | Kidney Failure Estimated GFR greater that 60 mL/min/1.73 sq m is of | | | limited clinical value. The MDRD equation is not valid in the | | | following situations: - Patients under 18 years of age - Severe | | | malnutrition or obesity - Vegetarian diet - Rapidly changing kidney | | | function | | + + + + + + + + | Performing | Address | City/State/Zipcode | Phone Number | | Organization | | | | + + + + + | [facility] | [address] | [place] [address] | | | SERVICES, CORE | [address] | | | + + + + + CAPILLARY BLOOD GLUCOSE (NO CHG), POC (04/02/2014 12:20 AM PDT) + +---------+ + + + | Component | Value | Ref Range | Performed | Pathologist | | | | | At | Signature | + +---------+ + + + | BLOOD | 117 (H) | 60 - 99 mg/dL | [facility] - | | | GLUCOSE, | | | [facility] | | | POC | | | [facility] | | | | | | OF CARE | | | | | | TESTS | | + +---------+ + + + + + | Specimen | + + | | + + + + + + + | Performing | Address | City/State/Zipcode | Phone Number | | Organization | | | | + + + + + | [facility] | [address] | [place], [place] | | | JARRETT GOMEZ OF [place] | [facility] | [phone] | | | TESTS | | | | + + + + + X-RAY ABDOMEN 2 VIEWS (04/01/2014 6:34 PM PDT) + + + + + + | Component | Value | Ref Range | Performed | Pathologist | | | | | At | Signature | + + + + + + | ABDOMEN, 2 | STUDY: ABDOMEN, 2 VIEWS | | | | | VIEWS | 04/01/14 18:34:00 NO | | | | | | COMPARISONS HISTORY: | | | | | | Rectal foreign body | | | | | | FINDINGS: I do not see | | | | | | any opaque foreign | | | | | | object in the region of | | | | | | the rectum.Intestinal | | | | | | gas pattern, remaining | | | | | | visualized structures | | | | | | appear normal. | | | | | | CONCLUSION: Negative | | | | | | exam. Attending | | | | | | Radiologists: DANIELITO | | | | | | CODY MDAuthor: | | | | | | DANIELITO ROSS MD I | | | | | | have personally viewed | | | | | | this procedure/exam, | | | | | | reviewed this report, | | | | | | and madechanges to it | | | | | | where appropriate. | | | | | | Final/Electronically | | | | | | signed / DANIELITO | | | | | | CDOY 04/01/2014 19:01 | | | | | | PM | | | | + + + + + + + + | Specimen | + + | | + + + +---------+ + + | Performing | Address | City/State/Zipcode | Phone Number | | Organization | | | | + +---------+ + + | [facility] | | | | | RADIOLOGY | | | | + +---------+ + + CBC (HEMOGRAM) ONLY (04/01/2014 3:38 PM PDT) + + + + + + | Component | Value | Ref Range | Performed | Pathologist | | | | | At | Signature | + + + + + + | WHITE CELL | 9.89 | 4.40 - 11.00 | [facility] | | | COUNT | | K/cu mm | LABORATORY | | | | | | SERVICES, | | | | | | CORE | | + + + + + + | RED CELL | 3.84 (L) | 4.50 - 6.00 | [facility] | | | COUNT | | M/cu mm | LABORATORY | | | | | | SERVICES, | | | | | | CORE | | + + + + + + | HEMOGLOBIN | 11.4 (L) | 13.5 - 17.5 | [facility] | | | | | g/dL | LABORATORY | | | | | | SERVICES, | | | | | | CORE | | + + + + + + | HEMATOCRIT | 34.7 (L) | 41.0 - 53.0 % | [facility] | | | | | | LABORATORY | | | | | | SERVICES, | | | | | | CORE | | + + + + + + | MCV | 90.4 | 80.0 - 96.0 fL | [facility] | | | | | | LABORATORY | | | | | | SERVICES, | | | | | | CORE | | + + + + + + | MCHC | 32.9 | 33.0 - 35.5 | [facility] | | | | | g/dL | LABORATORY | | | | | | SERVICES, | | | | | | CORE | | + + + + + + | RDW SD | 44.7 | 35.1 - 46.3 fL | [facility] | | | | | | LABORATORY | | | | | | SERVICES, | | | | | | CORE | | + + + + + + | PLATELET | 324 | 150 - 400 K/cu | [facility] | | | COUNT | | mm | LABORATORY | | | | | | SERVICES, | | | | | | CORE | | + + + + + + | MPV | 9.9 | 9.7 - 12.3 fL | [facility] | | | | | | LABORATORY | | | | | | SERVICES, | | | | | | CORE | | + + + + + + | NRBC% | 0.0 | 0.0 - 0.3 % | [facility] | | | | | | LABORATORY | | | | | | SERVICES, | | | | | | CORE | | + + + + + + | NRBC# | 0.00 | 0.00 - 0.02 | [facility] | | | | | K/cu mm | LABORATORY | | | | | | SERVICES, | | | | | | CORE | | + + + + + + + + | Specimen | + + | Blood - Blood | + + + + + + + | Performing | Address | City/State/Zipcode | Phone Number | | Organization | | | | + + + + + | [facility] | [address] | [place] [address] | | | SERVICES, CORE | [address] | | | + + + + + POTASSIUM, PLASMA (04/01/2014 1:55 PM PDT) + +---------+ + + + | Component | Value | Ref Range | Performed | Pathologist | | | | | At | Signature | + +---------+ + + + | POTASSIUM, | 4.2 | 3.4 - 5.0 | [facility] | | | PLASMA | | mmol/L | LABORATORY | | | (LAB) | | | SERVICES, | | | | | | CORE | | + +---------+ + + + | POTASSIUM | Sl Hemo | | [facility] | | | CMNT | | | LABORATORY | | | | | | SERVICES, | | | | | | CORE | | + +---------+ + + + + + | Specimen | + + | Blood - Blood | + + + + + | Narrative | Performed At | + + + | Sample hemolyzed. Results for K, Total Bili, Direct Bili, AST, | [facility] | | LDH, or HDL may be inaccurate. Refer to comment under test result. | LABORATORY | | | SERVICES, CORE | + + + + + + + + | Performing | Address | City/State/Zipcode | Phone Number | | Organization | | | | + + + + + | [facility] | [address] | [place] [address] | | | SERVICES, CORE | [address] | | | + + + + + RAINBOW HOLD TUBE - PURPLE TOP (04/01/2014 12:06 PM PDT) + + | Specimen | + + | Blood - Blood | + + + + + + + | Performing | Address | City/State/Zipcode | Phone Number | | Organization | | | | + + + + + | [facility] | [address] | [place] [address] | | | SERVICES, CORE | [address] | | | + + + + + APTT (ACT. PART. THROMBO TIME) (04/01/2014 11:54 AM PDT) + + + + + + | Component | Value | Ref Range | Performed | Pathologist | | | | | At | Signature | + + + + + + | APTT | 23.0 (L) | 26.0 - 36.0 | [facility] | | | | | seconds | LABORATORY | | | | | | SERVICES, | | | | | | CORE | | + + + + + + + + | Specimen | + + | Blood - Blood | + + + + + | Narrative | Performed At | + + + | APTT Therapeutic Range: (75 - | [facility] | | 120) sec Heparin levels of 0.35 - 0.7 U/mL | LABORATORY | | | BRICE DONOVAN | + + + + + + + + | Performing | Address | City/State/Zipcode | Phone Number | | Organization | | | | + + + + + | [facility] | [address] | [place] [address] | | | SERVICES, CORE | [address] | | | + + + + + CBC AND AUTO DIFF (04/01/2014 11:54 AM PDT) + + + + + + | Component | Value | Ref Range | Performed | Pathologist | | | | | At | Signature | + + + + + + | WHITE CELL | 10.10 | 4.40 - 11.00 | [facility] | | | COUNT | | K/cu mm | LABORATORY | | | | | | SERVICES, | | | | | | CORE | | + + + + + + | RED CELL | 3.62 (L) | 4.50 - 6.00 | [facility] | | | COUNT | | M/cu mm | LABORATORY | | | | | | SERVICES, | | | | | | CORE | | + + + + + + | HEMOGLOBIN | 10.9 (L) | 13.5 - 17.5 | [facility] | | | | | g/dL | LABORATORY | | | | | | SERVICES, | | | | | | CORE | | + + + + + + | HEMATOCRIT | 32.2 (L) | 41.0 - 53.0 % | [facility] | | | | | | LABORATORY | | | | | | SERVICES, | | | | | | CORE | | + + + + + + | MCV | 89.0 | 80.0 - 96.0 fL | [facility] | | | | | | LABORATORY | | | | | | SERVICES, | | | | | | CORE | | + + + + + + | MCHC | 33.9 | 33.0 - 35.5 | [facility] | | | | | g/dL | LABORATORY | | | | | | SERVICES, | | | | | | CORE | | + + + + + + | RDW SD | 43.8 | 35.1 - 46.3 fL | [facility] | | | | | | LABORATORY | | | | | | SERVICES, | | | | | | CORE | | + + + + + + | PLATELET | 268 | 150 - 400 K/cu | [facility] | | | COUNT | | mm | LABORATORY | | | | | | SERVICES, | | | | | | CORE | | + + + + + + | MPV | 10.1 | 9.7 - 12.3 fL | [facility] | | | | | | LABORATORY | | | | | | SERVICES, | | | | | | CORE | | + + + + + + | NRBC% | 0.0 | 0.0 - 0.3 % | [facility] | | | | | | LABORATORY | | | | | | SERVICES, | | | | | | CORE | | + + + + + + | NRBC# | 0.00 | 0.00 - 0.02 | [facility] | | | | | K/cu mm | LABORATORY | | | | | | SERVICES, | | | | | | CORE | | + + + + + + | NEUTROPHIL | 63.8 | 50.0 - 70.0 % | [facility] | | | % | | | LABORATORY | | | | | | SERVICES, | | | | | | CORE | | + + + + + + | LYMPHOCYTE | 22.9 | 18.0 - 42.0 % | [facility] | | | % | | | LABORATORY | | | | | | SERVICES, | | | | | | CORE | | + + + + + + | MONOCYTE % | 8.0 | 3.5 - 9.0 % | [facility] | | | | | | LABORATORY | | | | | | SERVICES, | | | | | | CORE | | + + + + + + | EOS % | 2.4 | 1.0 - 3.0 % | [facility] | | | | | | LABORATORY | | | | | | SERVICES, | | | | | | CORE | | + + + + + + | BASO % | 0.9 | 0.0 - 2.0 % | [facility] | | | | | | LABORATORY | | | | | | SERVICES, | | | | | | CORE | | + + + + + + | IG% | 2.0 (H) | 0.0 - 0.6 % | [facility] | | | | | | LABORATORY | | | | | | SERVICES, | | | | | | CORE | | + + + + + + | NEUTROPHIL | 6.45 | 1.80 - 7.70 | [facility] | | | # | | K/cu mm | LABORATORY | | | | | | SERVICES, | | | | | | CORE | | + + + + + + | LYMPHOCYTE | 2.31 | 1.00 - 4.80 | [facility] | | | # | | K/cu mm | LABORATORY | | | | | | SERVICES, | | | | | | CORE | | + + + + + + | MONOCYTE # | 0.81 | 0.10 - 0.90 | [facility] | | | | | K/cu mm | LABORATORY | | | | | | SERVICES, | | | | | | CORE | | + + + + + + | EOS # | 0.24 | 0.00 - 0.50 | [facility] | | | | | K/cu mm | LABORATORY | | | | | | SERVICES, | | | | | | CORE | | + + + + + + | BASO # | 0.09 | 0.00 - 0.10 | [facility] | | | | | K/cu mm | LABORATORY | | | | | | SERVICES, | | | | | | CORE | | + + + + + + | IG# | 0.20 (H) | 0.00 - 0.03 | [facility] | | | | | K/cu mm | LABORATORY | | | | | | SERVICES, | | | | | | CORE | | + + + + + + + + | Specimen | + + | Blood - Blood | + + + + + | Narrative | Performed At | + + + | Immature Granulocyes (IG) include metamyelocytes, myelocytes | [facility] | | and promyelocytes. Bands are not included in the IG count. | LABORATORY | | | SERVICES, CORE | + + + + + + + + | Performing | Address | City/State/Zipcode | Phone Number | | Organization | | | | + + + + + | [facility] | [address] | [place] [address] | | | SERVICES, CORE | [address] | | | + + + + + INR (04/01/2014 11:54 AM PDT) + +-------+ + + + | Component | Value | Ref Range | Performed | Pathologist | | | | | At | Signature | + +-------+ + + + | INR | 1.15 | 0.90 - 1.20 INR | [facility] | | | | | | LABORATORY | | | | | | SERVICES, | | | | | | CORE | | + +-------+ + + + + + | Specimen | + + | Blood - Blood | + + + + + | Narrative | Performed At | + + + | INR Therapeutic ranges for full anticoagulation: INR for | [facility] | | Venous Thromboembolism (2.0 - 3.0) INR INR for | LABORATORY | | most patients with mech. valves (2.5 - 3.5) INR | SERVICES, CORE | + + + + + + + + | Performing | Address | City/State/Zipcode | Phone Number | | Organization | | | | + + + + + | [facility] | [address] | [place] [address] | | | SERVICES, CORE | [address] | | | + + + + + MAGNESIUM, PLASMA (04/01/2014 11:54 AM PDT) + +-------+ + + + | Component | Value | Ref Range | Performed | Pathologist | | | | | At | Signature | + +-------+ + + + | MAGNESIUM,P | 1.9 | 1.8 - 2.5 mg/dL | [facility] | | | L[facility] | | | LABORATORY | | | | | | VENUS, | | | | | | CORE | | + +-------+ + + + + + | Specimen | + + | Blood - Blood | + + + + + + + | Performing | Address | City/State/Zipcode | Phone Number | | Organization | | | | + + + + + | [email or web address] | [address] | [place] [address] | | | SERVICES, CORE | [address] | | | + + + + + COMPLETE METABOLIC SET (NA,K,CL,CO2,BUN,CREAT,GLUC,CA,AST,ALT,BILI TOTAL,ALK PHOS,ALB,PROT TOTAL) (04/01/2014 11:54 AM PDT) + +---------+ + + + | Component | Value | Ref Range | Performed | Pathologist | | | | | At | Signature | + +---------+ + + + | GLUCOSE, | 99 | 60 - 99 mg/dL | [facility] | | | PLASMA | | | LABORATORY | | | (LAB) | | | SERVICES, | | | | | | CORE | | + +---------+ + + + | BUN, PLASMA | 18 | 6 - 20 mg/dL | [facility] | | | (LAB) | | | LABORATORY | | | | | | SERVICES, | | | | | | CORE | | + +---------+ + + + | CREATININE | 1.06 | 0.70 - 1.30 | [facility] | | | PLASMA | | mg/dL | LABORATORY | | | (LAB) | | | SERVICES, | | | | | | CORE | | + +---------+ + + + | EGFR | >60 | >60 mL/min | [facility] | | | - | | | LABORATORY | | | [facility] | | | SERVICES, | | | | | | CORE | | + +---------+ + + + | EGFR NON | >60 | >60 mL/min | [facility] | | | -ELIUD | | | LABORATORY | | | [facility] | | | SERVICES, | | | | | | CORE | | + +---------+ + + + | SODIUM, | 140 | 136 - 145 | [facility] | | | PLASMA | | mmol/L | LABORATORY | | | (LAB) | | | SERVICES, | | | | | | CORE | | + +---------+ + + + | POTASSIUM, | 5.2 (H) | 3.4 - 5.0 | [facility] | | | PLASMA | | mmol/L | LABORATORY | | | (LAB) | | | SERVICES, | | | | | | CORE | | + +---------+ + + + | CHLORIDE, | 107 | 97 - 108 mmol/L | [facility] | | | PLASMA | | | LABORATORY | | | (LAB) | | | SERVICES, | | | | | | CORE | | + +---------+ + + + | TOTAL CO2, | 23 | 21 - 32 mmol/L | [facility] | | | PLASMA | | | LABORATORY | | | (LAB) | | | SERVICES, | | | | | | CORE | | + +---------+ + + + | CALCIUM, | 8.1 (L) | 8.6 - 10.2 | [facility] | | | PLASMA | | mg/dL | LABORATORY | | | (LAB) | | | SERVICES, | | | | | | CORE | | + +---------+ + + + | BILIRUBIN | 0.9 | 0.3 - 1.2 mg/dL | [facility] | | | TOTAL | | | LABORATORY | | | | | | SERVICES, | | | | | | CORE | | + +---------+ + + + | TOTAL | 6.2 (L) | 6.4 - 8.2 g/dL | [facility] | | | PROTEIN, | | | LABORATORY | | | PLASMA | | | SERVICES, | | | (LAB) | | | CORE | | + +---------+ + + + | ALBUMIN, | 3.4 (L) | 3.5 - 4.7 g/dL | [facility] | | | PLASMA | | | LABORATORY | | | (LAB) | | | SERVICES, | | | | | | CORE | | + +---------+ + + + | ALK PHOS | 51 (L) | 53 - 128 U/L | [facility] | | | | | | LABORATORY | | | | | | SERVICES, | | | | | | CORE | | + +---------+ + + + | AST(SGOT) | 41 | 15 - 41 U/L | [facility] | | | | | | LABORATORY | | | | | | SERVICES, | | | | | | CORE | | + +---------+ + + + | ALT (SGPT) | 26 | 12 - 60 U/L | [facility] | | | | | | LABORATORY | | | | | | SERVICES, | | | | | | CORE | | + +---------+ + + + | ANION | 11 | 4 - 11 mmol/L | [facility] | | | GAP(ALB | | | LABORATORY | | | CORRECTED) | | | SERVICES, | | | | | | CORE | | + +---------+ + + + | POTASSIUM | Sl Hemo | | [facility] | | | CMNT | | | LABORATORY | | | | | | SERVICES, | | | | | | CORE | | + +---------+ + + + | AST CMNT | Sl Hemo | | [facility] | | | | | | LABORATORY | | | | | | SERVICES, | | | | | | CORE | | + +---------+ + + + | ANION GAP | 10 | mmol/L | [facility] | | | | | | LABORATORY | | | | | | SERVICES, | | | | | | CORE | | + +---------+ + + + + + | Specimen | + + | Blood - Blood | + + + + + | Narrative | Performed At | + + + | GFR is estimated using the MDRD equation recommended by the | [facility] | | National Kidney Disease Education Program. Estimated GFR | LABORATORY | | Interpretive Information: <60 mL/min/1.73 sq m | SERVICES, CORE | | Chronic Kidney Disease <15 mL/min/1.73 sq m | | | Kidney Failure Estimated GFR greater that 60 mL/min/1.73 sq m is of | | | limited clinical value. The MDRD equation is not valid in the | | | following situations: - Patients under 18 years of age - Severe | | | malnutrition or obesity - Vegetarian diet - Rapidly changing kidney | | | function Sample hemolyzed. Results for K, Total Bili, Direct Bili, | | | AST, LDH, or HDL may be inaccurate. Refer to comment under test | | | result. | | + + + + + + + + | Performing | Address | City/State/Zipcode | Phone Number | | Organization | | | | + + + + + | [facility] | [address] | [place] [address] | | | [facility] | [address] | | | + + + + + CAPILLARY BLOOD GLUCOSE (NO CHG), POC (04/01/2014 11:27 AM PDT) + +---------+ + + + | Component | Value | Ref Range | Performed | Pathologist | | | | | At | Signature | + +---------+ + + + | BLOOD | 118 (H) | 60 - 99 mg/dL | [facility] - | | | GLUCOSE, | | | [place] | | | POC | | | [facility] | | | | | | OF CARE | | | | | | TESTS | | + +---------+ + + + + + | Specimen | + + | | + + + + + + + | Performing | Address | City/State/Zipcode | Phone Number | | Organization | | | | + + + + + | [facility] | [address] | [place], [place] | | | [facility] | [address] | [address] | | | TESTS | | | | + + + + + documented in this encounter Visit Diagnoses + + | Diagnosis | + + | Hematochezia - Primary Blood in stool | + + documented in this encounter Administered Medications + +--------+ + +------+------+ | Medication Order | MAR | Action | Dose | Rate | Site | | | Action | Date | | | | + +--------+ + +------+------+ | senna-docusate (SENOKOT S) | Given | 04/01/20 | 1 tablet | | | | 8.6-50 mg 1 tablet 1 tablet, | | 14 8:27 | | | | | oral, DAILY, First dose on Mon | | PM PDT | | | | | 04/01/14 at 1915, Until | | | | | | | Discontinued | | | | | | + +--------+ + +------+------+ +---+---+ | | | +---+---+ documented in this encounter
--- OUTSIDE RECORDS SUMMARY | ~2020-07-24 | XMS | Encounter Summary ---
Demographics + + + | Address | [address] | | | [place] [address] | + + + | Home Phone | | + + + | Preferred Language | Unknown | + + + | Marital Status | Single | + + + | Sabianism Affiliation | NON | + + + | Race | White | + + + | Ethnic Group | Not or | + + + Author + + + | Author | [facility] | + + + | Organization | [facility] | + + + [...] [place] | | | | | [address] | | + + + + + Care Team Providers + +------+ + | Care Clinical Trials Manager Name | Role | Phone | + +------+ + | No Pcp Per Patient | PCP | Unavailable | + +------+ + Encounter Details +--------+ + + + + | Date | Type | Department | Care Team | Description | +--------+ + + + + | 03/21/ | Anesthesia | [facility] | Tejas Cook MD | | | 2018 | Event | [facility] [address] | [address] | | | | | [address] | [place] | | | | | [place] | [address] | | | | | [address] | [phone] | | | | | | | | | | | | Benitez Morgan | | | | | | Renee, RN [address] | | | | | | [place], [place] | | | | | | [address] | | +--------+ + + + + [...] + +------+ | Meds | +------+ + +---------+ | Name | Total | + +---------+ | midazolam IV | 4 mg | + +---------+ | fentaNYL inj | 100 mcg | + +---------+ | dexamethasone IV | 10 mg | + +---------+ | ketorolac inj | 30 mg | + +---------+ | ceFAZolin in Normal Saline | 2 g | | syringe 2 g | | + +---------+ | ropivacaine inj 0.5% | 20 mL | + +---------+ | propofol IV | 180 mg | + +---------+ | rocuronium IV | 30 mg | + +---------+ | lidocaine inj 1% | 18 mg | + +---------+ | PHENYLEPHrine IV 100 mcg/mL | 400 mcg | + +---------+ | lactated ringers IV infusion | 450 mL | + +---------+ + + | Name | + + | O2 FR Avance (Total Liters) | + + | Air FR Avance (l/min) | + + | Insp Sevo | + + | Et Sevo | + + | EtN2O % | + + | Insp N2O % | + + + + | No [...] + + | Periph | 03/21/18; 0936; (Azael Liriano | 03/21/18 0936 by | 03/21/18 [...] + + documented as of this encounter OR Notes Anesthesia Postprocedure Evaluation - Tejas Cook MD - 03/21/2018 4:15 PM PDT David Hall [id number] No Known Allergies Past Surgical History Procedure Laterality Date Foreign body removal, rectum multiple admissions for foreign body removal. Is not sure about how many surgies Temp: 36.6 C (97.9 F) Pulse: 77 Resp: 16 BP: 127/83 SpO2: 98 % Evaluation Patient personally seen and evaluated for recovery from anesthesia care, ROS including Card s, Resp, Neuro, and GI w/o evidence of adverse effects, VS (BP, HR, RR, SpO2, and Temp) and hydration status are stable Complications nesthesia Procedure No Tejas Hermosillo MD - 03/21/2018 3:35 PM PDTAssociated Order(s): ANE ETTProcedure Reason for Intubation: For surgical procedure, Location Performed: OR , Patient was preoxyg enated Mask Ventilation Grade 1 - Ventilated by mask Intubation Blade type: Stephan , Blade size: 3, Atraumatic laryngoscopy: Atraumatic Laryngoscopy, La ryngoscopic view: Grade I, Positive for EtCO2: Yes, Breath sounds: Bilateral and equal ETT ETT Size: 7 Depth at : 22 Cm Narrative Attending physically present nesthesia Procedure No Tejas Hermosillo MD - 03/21/2018 3:33 PM PDTAssociated Order(s): ANE PNB SSSingle-Shot Type Type interscalene block Technique used nerve stimulator Side right Block indication: Other block reason: blocked at surgeon's request for post op pain control. Operating Room The mike ent was identified, the site marked, full PARQ Done Procedure Pt. Position Supine, Monitors used NIBP, SpO2 and EKG Single Shot Prep: ChloraPrep Ultrasound Image printed and placed in patients chart Needle Needle type: Short-bevel Gauge: 22 G Length: 2 in No, Aspiration was Negative for blood Nerve Stimulator Upper response: Multiple Assessment Complications: None, Attending physically present Low pressure with injection. Twitch at 0.3 mA. Needle withd rawn until twitch gone. No arm pain with injection. nesthesia Preprocedure Evaluation - Tejas Cook MD - 03/21/2018 2:10 PM PDTFormatting of this note might be di fferent from the original. Obeysamia Hall [id number] No Known Allergies NPO:NPO Status: -- (2330) Last Vitals: Temp: 36.6 C (97.9 F) Pulse: 77 Resp: 16 BP: 127/83 SpO2: 98 % O2 Flow Rate: 0 LPM O2 Delivery Device: None (room air) Preg Status/LMP: Patient Active Problem List Diagnosis Hematochezia Acute blood loss anemia Past Surgical History Procedure Laterality Date Foreign body removal, rectum multiple admissions for foreign body removal. Is not sure about how many surgies Current Medication List Name Sig Last Dose APRACLONIDINE 0.5 % EYE DROPS 1 drop three times daily. CYCLOBENZAPRINE 10 MG TABLET Within last 7 days NAPROXEN 500 MG TABLET Within last 7 days RANITIDINE 150 MG TABLET 03/20/2018 No results found for: RATE, ATRIALRATE, CT, QRS, QT, QTC, PAXIS, RAXIS, TAXIS, EKGDX Preoperative Adult Anesthesia Plan Last edited 03/21/181409 by Tejas Cook MD ROS Pertinent HPI: Pulmonary: Pt. Has no asthma No dx of sleep apnea Cardiovascular: no CAD no hypertension GI/Hepatic: GERD Control: Well controlled : Endo: no Diabetes: Neurological: Current Pain Level: MS: Heme/Onc: Skin: Obstetrics: [facility] Physical Exam General: Head & Neck/Airway: Dentition: missing teeth and chipped teeth Mallampati: II Mouth Opening: > = 3 cm Lung Exam: Cardiac: Abdominal: Musculoskeletal: Neuro/Psych: Integument: Implants: 09 Anesthesia Plan Comments ASA ASA 2 NPO Status NPO Status: NPO by protocol Monitors/Lines to be used Standard Anesthetic Consideration Induction intravenous induction Anesthetic Technique General; Obstetric Anesthesia Post-Op Pain Plan Peripheral Nerve Block; Blood Products Informed Consent 1:20 chance of nerve damage discussed. PARQ discussed with: patient, Procedures, Alternati ves, Risks, and Questions discussed ; ; Date Consent Series Given: 03/21/2018 2:06 PM Code status in OR Patients Code Status in OR: FULL 03/21 2:10 PM documented in this enco unter Miscellaneous Notes PMC/ANE PreOp Note - Tejas Cook MD - 03/21/2018 2:09 PM PDT ROS Pertinent HPI: Pulmonary: Pt. Has no asthma No dx of sleep apnea Cardiovascular: no CAD no hypertension GI/Hepatic: GERD Control: Well controlled : Endo: no Diabetes: Neurological: Current Pain Level: MS: Heme/Onc: Skin: Obstetrics: [facility] Physical Exam General: Head & Neck/Airway: Dentition: missing teeth and chipped teeth Mallampati: II Mouth Opening: > = 3 cm Lung Exam: Cardiac: Abdominal: Musculoskeletal: Neuro/Psych: Integument: Implants: MC/ANE PreOp Note - Rosie Welch, HEATHER - 03/13/2018 10:27 AM PDT ROS Pertinent HPI: Pulmonary: Risks factors for sleep apnea: Pt SNORE's loudly (louder than talking) Male gender Pt at low risk of SHERWIN Cardiovascular: Pt denies HERNANDEZ or SD. Pt able to walk up @ FOS without SOB, CP or palpitation s. 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 Physical Exam General: Head & Neck/Airway: Dentition: missing teeth Lung Exam: Cardiac: Abdominal: Musculoskeletal: Neuro/Psych: Integument: Implants: None, documented in this encounter Plan of Treatment +--------+ + + + + | Date | Type | Specialty | Care Team | Description | +--------+ + + + + | 08/07/ | Telephone-S | Pre-operative | 4, [facility] [address] | | | 2019 | cheduled | Medicine | [address] | | | | | | [place] [address] | | +--------+ + + + + | 08/13/ | Office | Surgery | Cyndie Hunt MD | | | 2019 | Visit | | [address] | | | | | | [place], | | | | | | [place] [address] | | | | | | [phone] | | | | | | | [...] | | | | | | [place] [address] | | | | | | [phone] | | | | | | | | +--------+ + + + + documented as of this encounter Procedures + +--------+ + + + | Procedure Name | Priori | Date/Time | Associated Diagnosis | Comments | | | ty | | | | + +--------+ + + + | ANE ETT | Routin | 03/21/2018 | | | | | e | 3:35 PM | | | | | | PDT | | | + +--------+ + + + +---+--------+ | | | | | Proced | | | ure | | | Note - | | | Joey, | | | Tejas | | | C, MD | | | - | | | | | | 2017 | | | 3:35 | | | PM PDT | | | | | | Proced | | | ure | | | Reason | | | for | | | [place] | | | tion: | | | For | | | surgic | | | al | | | proced | | | ure, | | | Locati | | | on | | | Perfor | | | med: | | | [place] , | | | Patien | | | t was | | | preoxy | | | genate | | | dMask | | | Ventil | | | ationG | | | rade 1 | | | - | | | Ventil | | | ated | | | by | | | mask | | | Intuba | | | tionBl | | | kapil | | | type: | | | Macint | | | osh , | | | Blade | | | size: | | | 3, | | | Atraum | | | atic | | | laryng | | | oscopy | | | : | | | Atraum | | | atic | | | Laryng | | | oscopy | | | , | | | Laryng | | | oscopi | | | c | | | view: | | | Grade | | | I, | | | Positi | | | ve for | | | | | | EtCO2: | | | Yes, | | | Breath | | | | | | sounds | | | : | | | Bilate | | | ral | | | and | | | equal | | | ETTETT | | | Size: | | | 7 | | | Depth | | | at : | | | 22 Cm | | | | | | Narrat | | | iveAtt | | | ending | | | | | | physic | | | ally | | | presen | | | t | +---+--------+ + +--------+ +---+---+ | ANE PNB SS | Routin | 03/21/2018 | | | | | e | 3:33 PM | | | | | | PDT | | | + +--------+ +---+---+ +---+--------+ | | | | | Proced | | | ure | | | Note - | | | Cook, | | | Tejas | | | C, MD | | | - | | | | | | 2018 | | | 3:33 | | | PM PDT | | | | | | Single | | | -Shot | | | TypeTy | | | pe | | | inters | | | calene | | | block | | | | | | Techni | | | que | | | used | | | nerve | | | stimul | | | ator | | | Side | | | right | | | Block | | | indica | | | tion: | | | Other | | | block | | | reason | | | : | | | blocke | | | d at | | | surgeo | | | n's | | | reques | | | t for | | | post | | | op | | | pain | | | contro | | | l. | | | Operat | | | ing | | | Room | | | The | | | patien | | | t was | | | identi | | | fied, | | | the | | | site | | | marked | | | , full | | | PARQ | | | DonePr | | | ocedur | | | ePt. | | | Positi | | | on | | | Supine | | | , | | | Monito | | | rs | | | used | | | NIBP, | | | SpO2 | | | and | | | EKG | | | Single | | | Shot | | | Prep: | | | Chlora | | | Prep | | | | | | Ultras | | | oundIm | | | age | | | printe | | | d and | | | placed | | | in | | | patien | | | ts | | | chart | | | Needle | | | Needle | | | type: | | | | | | Short- | | | bevel | | | Gauge: | | | 22 G | | | | | | Length | | | : 2 | | | in No, | | | | | | Aspira | | | tion | | | was | | | Negati | | | ve for | | | | | | bloodN | | | erve | | | Stimul | | | atorUp | | | per | | | respon | | | se: | | | Multip | | | le | | | Assess | | | mentCo | | | mplica | | | tions: | | | None, | | | | | | Attend | | | ing | | | physic | | | ally | | | presen | | | t Low | | | pressu | | | re | | | with | | | inject | | | ion. | | | Twitch | | | at | | | 0.3 | | | mA. | | | Needle | | | | | | withdr | | | awn | | | until | | | twitch | | | gone. | | | No | | | arm | | | pain | | | with | | | inject | | | ion. | +---+--------+ documented in this encounter Visit Diagnoses Not on filedocumented in this encounter Administered Medications + +--------+ +------+------+------+ | Medication Order | MAR | Action | Dose | Rate | Site | | | Action | Date | | | | + +--------+ +------+------+------+ | ceFAZolin in Normal Saline | Given | 03/21/20 | 2 g | | | | syringe 2 g 2 g, intravenous, | | 18 3:05 | | | | | ONCE, 1 dose, 03/21/18 at 0915 | | PM PDT | | | | + +--------+ +------+------+------+ +---+---+ | | | +---+---+ + +-------+ +-------+---+---+ | dexamethasone (DECADRON) | Given | 03/21/20 | 10 mg | | | | injection intravenous, | | 18 3:07 | | | | | INTRAPROCEDURE PRN, Starting Tue | | PM PDT | | | | | 03/21/18 at 1507, Until Tue | | | | | | | 03/21/18 at 1615 | | | | | | + +-------+ +-------+---+---+ +---+---+ | | | +---+---+ + +-------+ +---------+---+---+ | fentaNYL (SUBLIMAZE) injection | Given | 03/21/20 | 100 mcg | | | | intravenous, INTRAPROCEDURE PRN, | | 18 2:49 | | | | | Starting 03/21/18 at 1449, | | PM PDT | | | | | Until 03/21/18 at 1615 | | | | | | + +-------+ +---------+---+---+ +---+---+ | | | +---+---+ + +-------+ +-------+---+---+ | ketorolac (TORADOL) injection | Given | 03/21/20 | 30 mg | | | | intravenous, INTRAPROCEDURE PRN, | | 18 3:07 | | | | | Starting 03/21/18 at 1507, | | PM PDT | | | | | Until 03/21/18 at 1615, prn | | | | | | | inflammation | | | | | | + +-------+ +-------+---+---+ +---+---+ | | | +---+---+ + + + +---+---+---+ | lactated Ringers IV | given by | 03/21/20 | | | | | intravenous, INTRAPROCEDURE | | 18 4:03 | | | | | CONTINUOUS PRN, Starting Tue | anesthes | PM PDT | | | | | 03/21/18 at 1449, Until Tue | iology | | | | | | 03/21/18 at 1615 | | | | | | + + + +---+---+---+ +---------+ +---+-------+---+ | New Bag | 03/21/20 | | 400 | | | | 18 2:49 | | mL/hr | | | | PM PDT | | | | +---------+ +---+-------+---+ +---+---+ | | | +---+---+ + +-------+ +-------+---+---+ | lidocaine PF (XYLOCAINE MPF) 10 | Given | 03/21/20 | 18 mg | | | | mg/mL (1 %) injection | | 18 2:57 | | | | | INTRAPROCEDURE PRN, Starting Tue | | PM PDT | | | | | 03/21/18 at 1457, Until Tue | | | | | | | 03/21/18 at 1615 | | | | | | + +-------+ +-------+---+---+ +---+---+ | | | +---+---+ + +-------+ +------+---+---+ | midazolam (PF) (VERSED) | Given | 03/21/20 | 2 mg | | | | injection intravenous, | | 18 2:52 | | | | | INTRAPROCEDURE PRN, Starting Tue | | PM PDT | | | | | 03/21/18 at 1449, Until Tue | | | | | | | 03/21/18 at 1615 | | | | | | + +-------+ +------+---+---+ +-------+ +------+---+---+ | Given | 03/21/20 | 2 mg | | | | | 18 2:49 | | | | | | PM PDT | | | | +-------+ +------+---+---+ +---+---+ | | | +---+---+ + +-------+ +---------+---+---+ | PHENYLEPHrine 100 mcg/mL IV | Given | 03/21/20 | 200 mcg | | | | syringe intravenous, | | 18 3:59 | | | | | INTRAPROCEDURE PRN, Starting Tue | | PM PDT | | | | | 03/21/18 at 1548, Until Tue | | | | | | | 03/21/18 at 1615 | | | | | | + +-------+ +---------+---+---+ +-------+ +---------+---+---+ | Given | 03/21/20 | 200 mcg | | | | | 18 3:48 | | | | | | PM PDT | | | | +-------+ +---------+---+---+ +---+---+ | | | +---+---+ + +-------+ +--------+---+---+ | propofol (DIPRIVAN) injection | Given | 03/21/20 | 180 mg | | | | intravenous, INTRAPROCEDURE PRN, | | 18 2:57 | | | | | Starting 03/21/18 at 1457, | | PM PDT | | | | | Until 03/21/18 at 1615 | | | | | | + +-------+ +--------+---+---+ +---+---+ | | | +---+---+ + +-------+ +-------+---+---+ | Rocuronium injection syrg | Given | 03/21/20 | 30 mg | | | | intravenous, INTRAPROCEDURE PRN, | | 18 2:57 | | | | | Starting 03/21/18 at 1457, | | PM PDT | | | | | Until 03/21/18 at 1615 | | | | | | + +-------+ +-------+---+---+ +---+---+ | | | +---+---+ + +-------+ +-------+---+---+ | ropivacaine (PF) (NAROPIN) | Given | 03/21/20 | 20 mL | | | | injection INTRAPROCEDURE PRN, | | 18 2:55 | | | | | Starting 03/21/18 at 1455, | | PM PDT | | | | | Until 03/21/18 at 1615 | | | | | | + +-------+ +-------+---+---+ +---+---+ | | | +---+---+ documented in this encounter"
--- OUTSIDE RECORDS SUMMARY | ~2020-07-24 | XMS | Encounter Summary ---
Demographics + + + | Address | [address] | | | [place] [address] | + + + | Home Phone [...] [place] | | | | | [address] | | + + + + + Care Team Providers + +------+ + | Care Juvenile Justice Specialist Name | Role | Phone | [...] | +--------+ + + + + | 11/11/ | PreAdmit | [facility] | Marley Apple | Pre-Admission | | 2018 | Orders | Sports Medicine & | VIRAL Duran [address] [facility] | | | | | Orthopaedic Surgery | [address] | | | | | [address] [facility] | [place], [place] | | | | | [place] | [address] | | | | | [address] | [phone] | | | | | [phone] | | | +--------+ + + + [...] | Telephone-S | Pre-operative | 4, [facility] [address] | | | 2019 | cheduled | Medicine | [address] | | | | | | [place] [address] | | +--------+ + + + + | 08/13/ | Office | Surgery | Cyndie Hunt MD | | | 2019 | Visit | | [address] | | | | | | [place], | | | | | | [place] [address] | | | | | | [phone] | | | | | | | [...] | | | | | [address] [place], | | | | | | [place] [address] | | | | | | [phone] | | | | | | | | +--------+ + + + + documented as of this encounter Visit Diagnoses Not on filedocumented in this encounter"
--- OUTSIDE RECORDS SUMMARY | ~2020-07-24 | XMS | Encounter Summary ---
Demographics + + + | Address | [address] | | | [place] [address] | + + + | Home Phone | | + + + | Preferred Language | Unknown | + + + | Marital Status | Single | + + + | Gnosticism Affiliation | NON | + + + | Race | White | + + + | Ethnic Group | Not or | + + + Author + + + | Author | [facility] | + + + | Organization | [facility] | + + + | Address | Unknown | + + + | Phone | Unavailable | + + + Support + + + + + | Name | Relationship | Address | Phone | + + + + + | Abdon Gross | ECON | [address] | | | [address] | | [place] | | | | | [address] | | + + + + + Care Team Providers + +------+ + | Care Refuse Driver Name | Role | Phone | + +------+ + | Francisco Macias | PCP | | + +------+ + Encounter Details +--------+ + + + + | Date | Type | Department | Care Team | Description | +--------+ + + + + | 09/06/ | Document-Sc | [facility] | Beni Helm, | | | 2018 | anned | Sports Medicine & | MD [address] | | | | | Orthopaedic Surgery | [place] | | | | | [address] | [address] | | | | | [place] | [phone] | | | | | [address] | | | | | | [phone] | | | +--------+ + + + [...] 08/07/ | Telephone-S | Pre-operative | 4, [facility] [address] | | | 2020 | cheduled | Medicine | [address] | | | | | | [place] [address] | | +--------+ + + + + | 08/13/ | Office | Surgery | Cyndie Hunt MD | | | 2019 | Visit | | [address] | | | | | | [place], | | | | | | [place] [address] | | | | | | [phone] | | | | | | | [...] | | | | | | [place] [address] | | | | | | [phone] | | | | | | | | +--------+ + + + + documented as of this encounter Visit Diagnoses Not on filedocumented in this encounter"
--- OUTSIDE RECORDS SUMMARY | ~2020-07-24 | XMS | Encounter Summary ---
Demographics + + + | Address | [address] | | | [place] [address] | + + + | Home Phone | | + + + | Preferred Language | Unknown | + + + | Marital Status | Single | + + + | Lutheran Affiliation | NON | + + + [...] | | [address] | | [place] | | | | | [address] | | + + + + + Care Team Providers + +------+ + | Care Box Maker Paperboard Name | Role | Phone | + +------+ + | No Pcp Per Patient | PCP | Unavailable | + +------+ + Reason for Visit + + + | Reason | Comments | + + + | Follow-up visit | Right should impingement/repeat injection. | + + + Encounter Details +--------+---------+ + + + | Date | Type | Department | Care Team | Description | +--------+---------+ + + + | 10/07/ | Office | [facility] | Marley Apple | Impingement syndrome | | 2017 | Visit | Sports Medicine & | VIRAL Duran [address] | of right shoulder | | | | Orthopaedic Surgery | [address] | (Primary Dx); Acute | | | | [address] | [place], [place] | pain of right | | | | [place], [place] | [address] | shoulder | | | | [address] | [phone] | | | | | [phone] | | | +--------+---------+ + + + [...] + + documented as of this encounter Patient Instructions Patient Instructions Brigida Li MA - 10/07/2017 1:04 PM PSTInjection today. Ice a barrie if sore. Monitor for any redness, swelling or signs of infection Work on shoulder exercises at home If your shoulder symptoms persist we will order an MRI Feel free to call the clinic if you have any questions or concerns [phone] Rotator Cuff: Exercises Your Care Instructions Here [...] about "Rotator Cuff: Exercises", log into your [employer] account at [email or web address]. You can enter [email or web address] in the "[employer]" search box. Not on [employer]? Review the [employer] section of your After Visit Summary for directions on ho w to sign up. Current as of: January 25, 2017 Content Version: 11.5 1349-0305 [employer]. Care instructions adapted under license by [facility] [employer]. If you have questions about a medical condition or this instr uction, always ask your healthcare professional. [employer] disclaims any patti anty or liability for your use of this information. documented in this encounter Progress Notes Marley Apple PA-C - 10/07/2017 1:00 PM PST Chief Complaint: Right shoulder pain. HPI: David Hall is a 46 y.o. year old male from [place] who returns to the office today for follow up of right shoulder pain. He injured this linda years ago and is having pain with activities that require right shoulder movement and strength overhead. He reports at his last office visit on 06/08/17 he received a cortisone injection in his right shoulder that significantly reduced his pain for over 3 months. He was referred to the office today for orthopedic evaluation by self. Current pain is 8/10 and is characterized as dull, stabbing, aching, burning and intermitte nt. Symptoms are worsening. The pain does wake the patient at night. It is associated wi th weakness or tingling. Symptoms are aggravated by standing, walking, overhead activities, and improve with rest and ice. He is using naproxen for the pain. Past Medical and Surgical History: Reviewed per patient intake form. Review of Systems: Completed and reviewed with patient per patient intake form. Pertinent positives noted in HPI. See scanned document for reference. Physical Exam: There were no vitals taken for this visit. General/Constitutional: Well developed, well nourished male, alert and in no acute distress. Right shoulder: Inspection: No swelling or obvious deformities. Palpation: Pain over biceps. Range of motion: FF 150. ER 45. IR 45. (painful arc) Strength: FF 4/5. ER 4/5. Stability: good Special Tests: pos speeds, pos impingement (patient very painful to impingement test) Contralateral shoulder- Inspection: No swelling or obvious deformities. Palpation: Nontender. Range of motion: Full range of motion. Strength: Normal strength. Diagnostic Imaging: XR examination reveals no evidence of acute fracture. Injection: Risks and complications were discussed with [...] procedure well and there were no complications. Assessment: Right shoulder impingement. Plan: The patient's clinical history and physical exam are consistent with right shoulder impinge ment and pain. I reviewed the natural history of this disorder with the patient and have ou tlined treatment options. We discussed treatment options including another cortisone injection, PT, exercises and MRI . If the patient continues to have pain he agrees to proceeding with the MRI for further milo luation of his shoulder pain. Follow up: PRN do cumented in this encounter Plan of Treatment +--------+ + + + + | Date | Type | Specialty | Care Team | Description | +--------+ + + + + | 08/07/ | Telephone-S | Pre-operative | 4, [facility] [address] | | | 2020 | cheduled | Medicine | [facility] | | | | | | [place] [address] | | +--------+ + + + + | 08/13/ | Office | Surgery | Cyndie Hunt MD | | | 2019 | Visit | | [address] | | | | | | [place], | | | | | | [place] [address] | | | | | | [phone] | | | | | | | [...] | | | | | | [place] [address] | | | | | | [phone] | | | | | | | | +--------+ + + + + documented as of this encounter Procedures + +--------+ + + + | Procedure Name | Priori | Date/Time | Associated Diagnosis | Comments | | | ty | | | | + +--------+ + + + | WA DRAIN/INJECT | Routin | 10/07/2017 | Impingement | | | LARGE JOINT/BURSA | e | 1:03 PM | syndrome of right | | | W/O US GUIDE | | PST | shoulder Acute pain | | | | | | of right shoulder | | + +--------+ + + + documented in this encounter Visit Diagnoses + + | Diagnosis | + + | Impingement syndrome of right shoulder - Primary Other affections of shoulder region, | | not elsewhere classified | + + | Acute pain of right shoulder | + + documented in this encounter Administered Medications + +--------+ +------+------+ + | Medication Order | MAR | Action | Dose | Rate | Site | | | Action | Date | | | | + +--------+ +------+------+ + | Methylprednisolone Acetate 80 | Given | | 1 mL | | Right | | Mg Intraarticular | | 7 13:00 | | | Shoulder | | | | PST | | | | + +--------+ +------+------+ + +---+---+ | | | +---+---+ documented in this encounter
--- OUTSIDE RECORDS SUMMARY | ~2020-07-24 | XMS | Encounter Summary ---
Demographics + + + | Address | [address] | | | [place] [address] | + + + | Home Phone | | + + + | Preferred Language | Unknown | + + + | Marital Status | Single | + + + | Scientologist Affiliation | NON | + + + [...] | | [address] | | [place] | | | | | [address] | | + + + + + Care Team Providers + +------+ + | Care Chief Executive Or Managing Director Name | Role | Phone | + [...] + + + + | 11/11/ | Telephone-S | Pre-Operative | | Pre-op evaluation | | 2018 | cheduled | Clinic at [facility] | | | | | | [facility] [address] | | | | | | [place], | | | | | | [place] [address] | | | | | | [phone] | | | +--------+ + + + + Anesthesia Record + + + + + | Procedure Name | Responsible | Anesthesia Start | Anesthesia Stop Time | | | Anesthesiologist | Time | | + + + + + | SHOULDER, ROTATOR | | | | | CUFF REPAIR WITH | | | | | SUBACROMIAL | | | | | DECOMPRESSION AND | | | | | DISTAL CLAVICLE | | | | | EXCISION, RIGHT | | | | | (Right ) | | | | + + + + + + + | No events on file. | + + +------+ | Meds | +------+ + + + No medications | on file. | + + + + + | No agents on file. | + + + + | No blood administrations on file. | + + +--------+ + +---------+ | Type | Details | Placement | Removal | +--------+ + +---------+ | Incisi | 03/21/18; Dr. Radha Helm; Right; | 03/21/18 0000 by | | | on | Medial, Lateral; shoulder | Sameer Hall RN | | +--------+ + +---------+ documented in this encounter Social History + [...] Height | 188 cm (6' 2") | 11/11/2017 10:59 AM | | | | | PST | | + + + + + | Body Mass Index | - | - | | + + + + + documented in this encounter Patient Instructions Patient Instructions Lizzie Crocker RN - 11/11/2017 11:09 AM PSTNothing to eat or drink a fter midnight. Check in at room 410 on the morning of surgery, next door to elevators on you r right. MD office will call you with your arrival time prior to you surgery. Please leave a ll jewelry at home day of surgery; rings, watches, necklaces, etc. Use no make - up, lotions , perfumes, or body powders on the day of your surgery. Patient advised of the above information via phone interview. documented in this encounter Plan of Treatment +--------+ + + + + | Date | Type | Specialty | Care Team | Description | +--------+ + + + + | 08/07/ | Telephone-S | Pre-operative | , [facility] Air Antisubmarine Officer [address] | | | 2020 | cheduled | Medicine | [facility] [address] | | | | | | [place] [address] | | +--------+ + + + + | 08/13/ | Office | Surgery | Cyndie Hunt MD | | | 2019 | Visit | | [address] | | | | | | [place], | | | | | | [place] [address] | | | | | | [phone] | | | | | | | [...] | | | | | | [place] [address] | | | | | | [phone] | | | | | | | | +--------+ + + + + documented as of this encounter Visit Diagnoses Not on filedocumented in this encounter
--- OUTSIDE RECORDS SUMMARY | ~2020-07-24 | XMS | Encounter Summary ---
Demographics + + + | Address | [address] | | | [place] [address] | + + + | Home Phone [...] Author + + + | Author | [facility] | + + + | Organization | [facility] | + + + | [...] [place] | | | | | [address]2019 | | + + + + + Care Team Providers + +------+ + | Care Chocolate Molder Name | Role | Phone | + +------+ + | Francisco Macias | PCP | | + +------+ + Reason for Visit + +--------+ + | Reason | Onset | Comments | | | Date | | + +--------+ + | Medical Records | 07/02/ | | | Review | 2020 | | + +--------+ + Encounter Details +--------+ + + + + | Date | Type | Department | Care Team | Description | +--------+ + + + + | 07/02/ | Abstract | [facility] | Cyndie Hunt MD | Medical Records | | 2020 | | Center at [facility] [address] | [address] [facility] | Review | | | | [facility] | [address] [place], | | | | | [facility] and | [place] [address] | | | | | [facility] | [phone] | | | | | [place], [place] | | | | | | [address] | | | | | | [phone] | | | +--------+ + + + [...] | Telephone-S | Pre-operative | 4, [facility] Etcher [address] | | | 2019 | cheduled | Medicine | [address] | | | | | | [place] [address] | | +--------+ + + + + | 08/13/ | Office | Surgery | Cyndie Hunt MD | | | 2019 | Visit | | [address] | | | | | | [place], | | | | | | [place] [address] | | | | | | [phone] | | | | | | | [...] | | | | | [place], | | | | | | [place] [address] | | | | | | [phone] | | | | | | | | +--------+ + + + + documented as of this encounter Visit Diagnoses Not on filedocumented in this encounter"
--- OUTSIDE RECORDS SUMMARY | ~2020-07-24 | XMS | Encounter Summary ---
Demographics + + + | Address | [address] | | | [place] [address] | + + + | Home Phone [...] [place] | | | | | [address] | | + + + + + Care Team Providers + +------+ + | Care Senior Clinical Data Analyst Name | Role | Phone | + +------+ + | No Pcp Per Patient | PCP | Unavailable | + +------+ + Reason for Visit + +--------+ + | Reason | Onset | Comments | | | Date | | + +--------+ + | Radiology Order | 07/04/ | | | | 2016 | | + +--------+ + Encounter Details +--------+ + + + + | Date | Type | Department | Care Team | Description | +--------+ + + + + | 07/04/ | Telephone | [facility] | Alber Freire, | Radiology Order | | 2017 | | Sports Medicine & | MD Emmett PINEDA [facility] | | | | | Orthopaedic Surgery | [facility] | | | | | [address] | [place], [place] | | | | | [place], [place] | [address] | | | | | [address] | [phone] | | | | | [phone] | | | +--------+ + + + [...] Notes Telephone Encounter - Zechariah Wang - 07/14/2017 11:51 AM PDTPer patient, faxed demographics, insurance authorization, MRI order, referral and chart notes to [facility] for scheduling. [facility] - [facility]iology [address] [address] elephone Encounter - Marta Lara - 07/04/2017 10:15 AM PDTPatient called asking us to send his MRI order to [place]. He asked this originally but the order was sent to [facility] . documented in this encou nter Plan of Treatment +--------+ + + + + | Date | Type | Specialty | Care Team | Description | +--------+ + + + + | 08/07/ | Telephone-S | Pre-operative | 4, [facility] Drafting Instructor [address] | | | 2019 | cheduled | Medicine | [address] | | | | | | [place] [address] | | +--------+ + + + + | 08/13/ | Office | Surgery | Cyndie Hunt MD | | | 2019 | Visit | | [address] | | | | | | [place] [facility] | | | | | | [place] [address] | | | | | | [phone] | | | | | | | [...] | | | | | [place], | | | | | | [place] [address] | | | | | | [phone] | | | | | | | | +--------+ + + + + documented as of this encounter Visit Diagnoses Not on filedocumented in this encounter"
--- OUTSIDE RECORDS SUMMARY | ~2020-07-24 | XMS | Encounter Summary ---
Demographics + + + | Address | [address] | | | [place] [address] | + + + | Home Phone | | + + + | Preferred Language | Unknown | + + + | Marital Status | Single | + + + | Congregation Affiliation | NON | + + + | Race | White | + + + | Ethnic Group | Not or | + + + Author + + + | Author | [facility] | + + + | Organization | [facility] | + + + | [...] [place] | | | | | [address] | | + + + + + Care Team Providers + +------+ + | Care Meat Cutter Apprentice Name | Role | Phone | + +------+ + | No Pcp Per Patient | PCP | Unavailable | + +------+ + Reason for Visit + + + | Reason | Comments | + + + | Pre-op evaluation | Rt RCR | + + + Encounter Details +--------+---------+ + + + | Date | Type | Department | Care Team | Description | +--------+---------+ + + + | // | Office | [facility] | Marley Apple | Complete tear of | | 2018 | Visit | Sports Medicine & | VIRAL Duran [address] [facility] | right rotator cuff | | | | Orthopaedic Surgery | [address] | (Primary Dx); | | | | [address] | [place], [place] | Impingement syndrome | | | | [place], [place] | [address] | of right shoulder | | | | [address] | [phone] | | | | | [phone] | | | +--------+---------+ + + + [...] + + + | Blood Pressure | 110/78 | 03/10/2018 1:47 PM | | | | | PDT | | + + + + + | Pulse | 94 | 03/10/2018 1:47 PM | | | | | PDT | | + + + + + | Temperature | - | - | | + + + + + | Respiratory Rate | - | - | | + + + + + | Oxygen Saturation | 96% | 03/10/2018 1:47 PM | | | | | PDT | | + + + + + | Inhaled Oxygen | - | - | | | Concentration | | | | + + + + + | Weight | 88.5 kg (195 lb) | 03/10/2018 1:47 PM | | | | | PDT | | + + + + + | Height | 182.9 cm (6') | 03/10/2018 1:47 PM | | | | | PDT | | + + + + + | Body Mass Index | 26.45 | 03/10/2018 1:47 PM | | | | | PDT | | + + + + + documented in this encounter Patient Instructions Patient Instructions Marley Apple PA-C - 03/10/2018 2:15 PM PDTPlan surgery as sche duled. Please make sure your pre-op interview with the hospital is completed. We will call you the day before surgery to confirm your surgery time. No food or drink after midnight before surgery. Follow up at post-op appointment as scheduled in your surgery packet. documented in this encounter Progress Notes Marley Apple PA-C - 03/10/2018 2:15 PM PDTFormatting of this note might be differen t from the original. Chief Complaint: Right shoulder pain. HPI: David Hall is a 46 y.o. year old male from [place] who returns to the office today for [...] infection, continued pain. documented in this encounter Plan of Treatment +--------+ + + + + | Date | Type | Specialty | Care Team | Description | +--------+ + + + + | 08/07/ | Telephone-S | Pre-operative | 4, [facility] Polishing Machine Tender [address] | | | 2019 | cheduled | Medicine | [address] | | | | | | [place] [address] | | +--------+ + + + + | 08/13/ | Office | Surgery | Cyndie Hunt MD | | | 2019 | Visit | | [address] | | | | | | [place], | | | | | | [place] [address] | | | | | | [phone] | | | | | | | [...] | | | | | [place], | | | | | | [place] [address] | | | | | | [phone] | | | | | | | | +--------+ + + + + documented as of this encounter Visit Diagnoses + + | Diagnosis | + + | Complete tear of right rotator cuff - Primary Complete rupture of rotator cuff | + + | Impingement syndrome of right shoulder Other affections of shoulder region, not | | elsewhere classified | + + documented in this encounter
--- OUTSIDE RECORDS SUMMARY | ~2020-07-24 | XMS | Encounter Summary ---
Demographics + + + | Address | [address] | | | [place] [address] | + + + | Home Phone | | + + + | Preferred Language | Unknown | + + + | Marital Status | Single | + + + | Yazidi Affiliation | NON | + + + [...] [place] | | | | | [address] | | + + + + + Care Team Providers + +------+ + | Care Manager Willow Name | Role | Phone | + +------+ + | No Pcp Per Patient | PCP | Unavailable | + +------+ + Reason for Referral Physical Therapy (Routine) +--------+--------+ + + + + | Status | Reason | Specialty | Diagnoses / | Referred By | Referred To | | | | | Procedures | Contact | Contact | +--------+--------+ + + + + | Closed | | Physical | Diagnoses | Monique Apple | | | | Therapy | Status post | Marley Duran, | Iftikhar PT | | | | | rotator | PA-C [address] | | | | | cuff repair | [address] | [address] | | | | | Procedures | [address] | | | | | PHYSICAL | Rd | [place] | | | | | THERAPY | [place], [place] | [address] | | | | | REFERRAL | [address] | Phone: | | | | | | Phone: | [phone] | | | | | | [phone] | Fax: | | | | | | Fax: | [phone] | | | | | | [phone] | | +--------+--------+ + + + + Reason for Visit + + + | Reason | Comments | + + + | Follow-up visit | S/P Rt RCR | + + + Encounter Details +--------+---------+ + + + | Date | Type | Department | Care Team | Description | +--------+---------+ + + + | 05/01/ | Office | [facility] | Marley Apple | Status post rotator | | 2018 | Visit | Sports Medicine & | VIRAL Duran [address] | cuff repair (Primary | | | | Orthopaedic Surgery | [address] | Dx) | | | | [address] | [place], [place] | | | | | [place] | [address] | | | | | [address] | [phone] | | | | | [phone] | | | +--------+---------+ + + + [...] Weight | 86.2 kg (190 lb) | 05/01/2018 2:32 PM | | | | | PDT | | + + + + + | Height | 188 cm (6' 2") | 05/01/2018 2:32 PM | | | | | PDT | | + + + + + | Body Mass Index | 24.39 | 05/01/2018 2:32 PM | | | | | PDT | | + + + + + documented in this encounter Patient Instructions Patient Instructions Marley Apple PA-C - 05/01/2018 2:45 PM PDTOk to discontinue th e sling Work on gentle passive and active range of motion, no strengthening or heavy lifting PT has been ordered Return to the clinic in 4 weeks, sooner if needed Feel free to call the clinic if you have any questions or concerns [phone] ly signed by Marley Apple PA-C at 05/01/2018 3:04 PM PDT documented in this encounter Progress Notes Marley Apple PA-C - 05/01/2018 2:45 PM PDTChief Complaint: S/P Right shoulder rotat [...] 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 He denies any chest pain, SOB, fever, chills or wound issues. He return s to the office today in routine follow up. The patient admits he has removed the sling for "work" and he does not wear it at night. He states a few weeks ago he slipped and "jerked" h is right arm back and now has some discomfort in his posterior shoulder/scapula. Overall, the patient feels 50% better. Current pain is 2-5/10 and is characterized as tracee p, stabbing, aching and intermittent. Symptoms are improving. The pain does not wake the p atient at night. It is associated with weakness. Symptoms are aggravated by laying down, a nd improve with rest and ice. He is using naproxen for the pain. Review of Systems: Completed and reviewed with patient per patient intake form. See scanned document for refe renjose. Physical Exam: Ht 1.88 m (6' 2") | Wt 86.2 kg (190 lb) | BMI 24.39 kg/(m^2) Alert, pleasant and in NAD Right shoulder: Inspection: Incisions well healed. No signs of infection. Minimal swelling. Palpation: No crepitus. Range of motion: FF active 90, passive 130 Strength: Not tested secondary to pain. Sensation: Axillary nerve intact to light touch. NVI Assessment: Status post right shoulder rotator cuff repair-progressing well Plan: David continues to do well following surgery. At this time he may discontinue the sli ng as he is approx. 6 weeks post op. PT was ordered for additional therapy, RCR protocol, he was instructed to start gentle passive and active ROM. He was instructed to avoid any lift ing, pushing or pulling activities with his right arm, he understands he should only be work ing on gentle shoulder ROM. I have reviewed his post operative rehabilitation goals and time line for recovery. The importance of compliance with this protocol was emphasized. He will continue to ice his shoulder daily. He will return to the clinic in 4 weeks, sooner if needed. Follow up: 4 weeks P DTdocumented in this encounter Plan of Treatment +--------+ + + + + | Date | Type | Specialty | Care Team | Description | +--------+ + + + + | 08/07/ | Telephone-S | Pre-operative | 4, [facility] Transfer And Pumphouse Operator [address] | | | 2019 [facility] | Medicine | [address] | | | | | | [place] [address] | | +--------+ + + + + | 08/13/ | Office | Surgery | Cyndie Hunt MD | | | 2019 | Visit | | [address] | | | | | | [place] [facility] | | | | | | [place] [address] | | | | | | [phone] | | | | | | | [...] | | | | | [place], | | | | | | [place] [address] | | | | | | [phone] | | | | | | | | +--------+ + + + + documented as of this encounter Visit Diagnoses + + | Diagnosis | + + | Status post rotator cuff repair - Primary Other postprocedural status | + + documented in this encounter
--- OUTSIDE RECORDS SUMMARY | ~2020-07-24 | XMS | Encounter Summary ---
Demographics + + + | Address | [address] | | | [place] [address] | + + + | Home Phone | | + + + | Preferred Language | Unknown | + + + | Marital Status | Single | + + + | Synagogue Affiliation | NON | + + + | Race | White | + + + | Ethnic Group | Not or | + + + Author + + + | Author | [facility] | + + + | Organization | [facility] | + + + | Address | Unknown | + + + | Phone | Unavailable | + + + Support + + + + + | Name | Relationship | Address | Phone | + + + + + | Abdon Gross | ECON | [address] | | | [address] | | [place] | | | | | [address] | | + + + + + Care Team Providers + +------+ + | Care Hand Brim Ironer Name | Role | Phone | + +------+ + | No Pcp Per Patient | PCP | Unavailable | + +------+ + Reason for Referral Consult to [place] (Routine) +--------+--------+ + + [...] | | | | Rd | [place] [address] | | | | | Impingement | [place], [place] | Phone: | | | | | syndrome of | [address] | [phone] | | | | | right | Phone: | Fax: | | | | | shoulder | [phone] | [phone] | | | | | Procedures | Fax: | | | | | | REQUEST TO | [phone] | | | | | | SURGERY | | | | | | | TAPE MACHINE TAILER | | | | | | | ND SHLDR | | | | | | | ARTHROSCOP,S | | | | | | | URG,W/ROTAT | | | | | | | CUFF REPR | | | | | | | ND SHLDR | | | | | | | ARTHROSCOP,P | | | | | | | ART | | | | | | | ACROMIOPLAS | | | | | | | W/CORACOACRO | | | | | | | M ND SHLDR | | | | | | | ARTHROSCOP,S | | | | | | | URG,DIS | | | | | | | CLAVICULECTO | | | | | | | MY | | | +--------+--------+ + + + + Reason for Visit + + + | Reason | Comments | + + + | Follow-up visit | MRI review R shoulder | + + + Consultation (Routine) + +--------+ + + + + | Status | Reason | Specialty | Diagnoses / | Referred By | Referred To | | | | | Procedures | Contact | Contact | + +--------+ + + + + | Pending | | Orthopedics | Diagnoses | [place], | [place], | | Review | | | Unspecified | Michele Lin, | Mario Alberto Perez MD 7 | | | | | rotator | BITUMINOUS PAVING MACHINE OPERATOR | Anselmo Hernadez | | | | | cuff tear or | [address] | [address] | | | | | rupture of | [place] | [place], | | | | | right | [facility] | [place] [address] | | | | | shoulder, | [address] | Phone: | | | | | not | [address] | [phone] | | | | | specified as | [place], [place] | Fax: | | | | | traumatic | [address] | [phone] | | | | | Pain in | Phone: | | | | | | right | [phone] | | | | | | shoulder | Fax: | | | | | | Other muscle | [phone] | | | | | | spasm | | | | | | | Sciatica, | | | | | | | right side | | | + +--------+ + + + + Encounter Details +--------+---------+ + + + | Date | Type | Department | Care Team | Description | +--------+---------+ + + + | 10/28/ | Office | [facility] | Marley Apple | Complete tear of | | 2017 | Visit | Sports Medicine & | VIRAL Duran [address] | right rotator cuff | | | | Orthopaedic Surgery | [address] | (Primary Dx); | | | | [address] | [place], [place] | Impingement syndrome | | | | [place], [place] | [address] | of right shoulder | | | | [address] | [phone] | | | | | [phone] | | | +--------+---------+ + + + [...] +---------+ + + | Blood Pressure | - | - | | + +---------+ + + | Pulse | 85 | 10/28/2017 10:51 AM | | | | | PST | | + +---------+ + + | Temperature | - | - | | + +---------+ + + | Respiratory Rate | - | - | | + +---------+ + + | Oxygen Saturation | 90% | 10/28/2017 10:51 AM | | | | | PST | | + +---------+ + + | [...] Instructions Patient Instructions Marley Apple PA-C - 10/28/2017 11:00 AM PSTPlan surgery as sche duled on 11/22/17 Please make sure your pre-op interview with the hospital is completed. We will call you the day before surgery to confirm your surgery time. No food or drink after midnight before surgery. Follow up at post-op appointment as scheduled in your surgery packet. documented in this encounter Progress Notes Marley Apple PA-C - 10/28/2017 11:00 AM PSTFormatting of this note might be differen t from the original. Chief Complaint: Right shoulder pain. HPI: David Hall is a 46 y.o. year old male from [place] who returns to the office today for [...] PT with minimal relief of his symptoms. Current pain is 8-9/10 and is characterized as dull, stabbing, aching, burning and constant . Symptoms are worsening. The pain does wake the patient at night. It is associated with weakness and numbness. Symptoms are aggravated by standing, [...] surgical history reviewed per patient intake form. No past medical history on file. Past Surgical History Procedure Laterality Date Foreign body removal, rectum multiple admissions for foreign body removal. Is not sure about how many surgies Family History Problem Relation Arthritis Mother Hepatitis Father Arthritis Other Social history: Occupation: No occupation listed. He reports that he has quit smoking. He has never used smokeless tobacco. He reports that he drinks alcohol. He reports that he does not use drugs. Allergies: No Known Allergies Current Medications: Current Outpatient Prescriptions Medication cyclobenzaprine 10 mg oral tablet meloxicam 15 mg oral tablet naproxen 500 mg oral tablet No current facility-administered medications for this visit. Physical Exam: Pulse 85 | SpO2 90% General: AAOx3, cooperative with exam HEENT: nonicteric Cardiac: Regular rate and rhythm, no murmurs or gallops appreciated Chest: CTA bilat Skin: Intact over surgical site without erythema or lesions. Right shoulder: Inspection: No swelling or obvious deformities. Palpation: Pain over biceps. Range of motion: FF 130. ER 45. IR 45. (painful arc) Strength: FF 3/5. ER 4/5. Stability: good Special Tests: pos [...] is scheduled for right shoulder arthroscopy on 11/22/17. Follow up: 2 weeks post op. Patient understands and accepts risks of surgery that include but are not limited to need f or more surgery, no improvement or worsening of condition, blood clots , stiffness, damage t o nerves and blood vessels, infection, continued pain. documented in this encounter Miscellaneous Notes Addendum Note - Meri Hartmann MA - 10/28/2017 11:00 AM PST Addended by: Lucho HARTMANN MA on: 11/02/2017 10:52 AM Modules accepted: Orders documented in thi s encounter Plan of Treatment +--------+ + + + + | Date | Type | Specialty | Care Team | Description | +--------+ + + + + | 08/07/ | Telephone-S | Pre-operative | 4, [facility] Varsity Baseball Coach [address] | | | 2019 | cheduled | Medicine | [address] | | | | | | [place] [address] | | +--------+ + + + + | 08/13/ | Office | Surgery | Cyndie Hunt MD | | | 2019 | Visit | | [address] | | | | | | [address] [place], | | | | | | [place] [address] | | | | | | [phone] | | | | | | | | +--------+ + + + + | 08/14/ | Procedure | Surgery | | | | 2019 | Pass | | | | +--------+ + + + + | 09/10/ | Telephone-S | Surgery | Cyndie Hunt MD | | | 2019 | gita | | [address] | | | | | | [place] [place], | | | | | | [place] [address] | | | | | | [phone] | | | | | | | [...] classified | + + documented in this encounter"
--- OUTSIDE RECORDS SUMMARY | ~2020-07-24 | XMS | Encounter Summary ---
Demographics + + + | Address | [address] | | | [place] [address] | + + + | Home Phone | | + + + | Preferred Language | Unknown | + + + | Marital Status | Single | + + + | Advent Affiliation | NON | + + + | Race | White | + + + | Ethnic Group | Not or | + + + Author + + + | Author | [facility] | + + + | Organization | [facility] | + + + [...] [place] | | | | | [address] | | + + + + + Care Team Providers + +------+ + | Care Replenishment Associate Name | Role | Phone | + +------+ + | No Pcp Per Patient | PCP | Unavailable | + +------+ + Reason for Visit + +--------+ + | Reason | Onset | Comments | | | Date | | + +--------+ + | Phone communication | 03/22/ | post op | | | 2018 | | + +--------+ + Encounter Details +--------+ + + + + | Date | Type | Department | Care Team | Description | +--------+ + + + + | 03/22/ | Telephone | [facility] | Beni Helm, | Phone communication | | 2018 | | Sports Medicine & | MD [address] | (post op) | | | | Orthopaedic Surgery | [address] [place], [place] | | | | | [address] | [address] | | | | | [place], [place] | [phone] | | | | | [address] | | | | | | [phone] | | | +--------+ + + + [...] Telephone Encounter - Meri Hartmann MA - 03/24/2018 11:06 AM PDTFormatting of this not e might be different from the original. Marley Apple PA-C You 1 hour ago (9:21 AM) This shoulder be ok. He can remove the sling for very gentle ROM of his elbow and wrist as well, keeping arm at side. May help with swelling. (Routing comment) Patient notified el ephone Encounter - Meri Hartmann MA - 03/24/2018 8:51 AM PDTPatient called in stating he has been waking up with his hands swollen and stiff in the mornings and has been working them with a stress ball. "I keep my arm in the sling, and at my side, just work my hand, bu t thought I better make sure this is ok. It really helps." I told patient I would double c heck with Marley Apple PA-C. elephone Encounter - Meri Hartmann MA - 03/22/2018 1:24 PM PDTDate of Richa migel: 03/21/18 Surgery Preformed: R RCR/SAD/DCE Is your pain being controlled with you medications? no - but patient feels that is due to t hat he waited to take his medication until the block wore off so he "got behind." Patient s ays he was told ok to take his Aleve as well, or Tylenol. Reiterated bandage/showering protocol. Patient ok to remove bandage after 48 hours, place waterproof bandaid over incisions and ok to shower. Patient understands to just leave his a rm down at his side Questions/Concerns: no more at this time, patient will be in for post op on 03/30/18 documented in this encounter Plan of Treatment +--------+ + + + + | Date | Type | Specialty | Care Team | Description | +--------+ + + + + | 08/07/ | Telephone-S | Pre-operative | 4, [facility] Finishing Lab Technician [address] | | | 2019 | cheduled | Medicine | [address] | | | | | | [place] [address] | | +--------+ + + + + | 08/13/ | Office | Surgery | Cyndie Hunt MD | | | 2019 | Visit | | [address] | | | | | | [address] [place], | | | | | | [place] [address] | | | | | | [phone] | | | | | | | | +--------+ + + + + | 08/14/ | Procedure | Surgery | | | | 2019 | Pass | | | | +--------+ + + + + | 09/10/ | Telephone-S | Surgery | Cyndie Hunt MD | | | 2019 | cheduled | | [address] | | | | | | [place], | | | | | | [place] [address] | | | | | | [phone] | | | | | | | | +--------+ + + + + documented as of this encounter Visit Diagnoses Not on filedocumented in this encounter
--- OUTSIDE RECORDS SUMMARY | ~2020-07-24 | XMS | Encounter Summary ---
Demographics + + + | Address | [address] | | | [place] [address] | + + + | Home Phone | | + + + | Preferred Language | Unknown | + + + | Marital Status | Single | + + + | Hindu Affiliation | NON | + + + | Race | White | + + + | Ethnic Group | Not or | + + + Author + + + | Author | [facility] | + + + | Organization | [facility] | + + + [...] [place] | | | | | [address] | | + + + + + Care Team Providers + +------+ + | Care Marine Animal Trainer Name | Role | Phone | + +------+ + | No Pcp Per Patient | PCP | Unavailable | + +------+ + Reason for Visit + +--------+ + | Reason | Onset | Comments | | | Date | | + +--------+ + | Surgery Scheduling | 11/21/ | | | | 2017 | | + +--------+ + Encounter Details +--------+ + + + + | Date | Type | Department | Care Team | Description | +--------+ + + + + | 11/21/ | Telephone | [facility] | Beni Helm, | Surgery Scheduling | | 2018 | | Sports Medicine & | MD [address] | | | | | Orthopaedic Surgery | [address] [place], [place] | | | | | [address] | [address] | | | | | [place], [place] | [phone] | | | | | [address] | | | | | | [phone] | | | +--------+ + + + [...] Encounter - Meri Hartmann MA - 12/01/2017 4:40 PM PSTSee 11/30/17 telephone encounter. Patient is choosing to try an alternative to surgery. elephone Encounter - Marta Lara - 2017 4:06 PM PSTPatient called to check on the status of rescheduling his surgery. He also let me know he was unable to get into see a doctor about the bite and stated he is getting r eally sick. After speaking with Marley the patient was informed to get in to see his PCP, [facility] or the ED to have this evaluated. Patient understood and had no further questions. He will be waiting for a call next week regarding rescheduling his surgery.Electronically s igned by Marta Lara at 11/25/2017 4:08 PM PSTTelephone Encounter - Meri Hartmann MA - 11/22/2017 9:38 AM PSTPatient called in stating his surgery was canceled due to being bit by a spider on the arm of surgery. He would like to reschedule as soon as possible. I will route this to Marley Apple PA-C to review and advise. Marley, as patient was checked in I will need to start over with a new order once you have determined a new date. Thanks! elephone Encounter - Meri Hartmann MA - 11/21/2017 2:38 PM PSTLVM for mike ent regarding surgery on Tuesday11/22/17. Confirmed check in time of 7:30a.m. and reminded nothing by mouth after midnight. I also asked patient to call back and confirm that he got this message. documented in this encounter Plan of Treatment +--------+ + + + + | Date | Type | Specialty | Care Team | Description | +--------+ + + + + | 08/07/ | Telephone-S | Pre-operative | 4, [facility] Correspondence Analyst [address] | | | 2019 | cheduled | Medicine | [address] | | | | | | [place] [address] | | +--------+ + + + + | 08/13/ | Office | Surgery | Cyndie Hunt MD | | | 2019 | Visit | | [address] | | | | | | [place], | | | | | | [place] [address] | | | | | | [phone] | | | | | | | | +--------+ + + + + | 08/14/ | Procedure | Surgery | | | | 2019 | Pass | | | | +--------+ + + + + | 09/10/ | Telephone-S | Surgery | Cyndie Hunt MD | | | 2019 | cheduled | | [address] | | | | | | [place], | | | | | | [place] [address] | | | | | | [phone] | | | | | | | | +--------+ + + + + documented as of this encounter Visit Diagnoses Not on filedocumented in this encounter"
--- OUTSIDE RECORDS SUMMARY | ~2020-07-24 | XMS | Encounter Summary ---
Demographics + + + | Address | [address] | | | [place] [address] | + + + | Home Phone | | + + + | Preferred Language | Unknown | + + + | Marital Status | Single | + + + | Uatsdin Affiliation | NON | + + + | Race | White | + + + | Ethnic Group | Not or | + + + Author + + + | Author | [facility] | + + + | Organization | [facility] | + + + | Address | Unknown | + + + | Phone | Unavailable | + + + Support + + + + + | Name | Relationship | Address | Phone | + + + + + | Abdon Gross | ECON | [address] | | | [address] | | [place] | | | | | [address] | | + + + + + Care Team Providers + +------+ + | Care Cigar Roller Name | Role | Phone | + +------+ + | Francisco Macias | PCP | | + +------+ + Reason for Visit +--------+--------+ + | Reason | Onset | Comments | | | Date | | +--------+--------+ + | Other | 06/30/ | Completed colonoscopy's | | | 2020 | | +--------+--------+ + Encounter Details +--------+ + + + + | Date | Type | Department | Care Team | Description | +--------+ + + + + | 06/30/ | Telephone | [facility] | Cyndie Hunt MD | Other (Completed | | 2019 | | Center at [facility] [address] | [address] [facility] [facility] | colonoscopy's ) | | | | [facility] | [facility], | | | | | [facility] and | [place] [address] | | | | | [place] [address] | [phone] | | | | | [place], [place] | | | | | | [address] | | | | | | [phone] | | | +--------+ + + + [...] Telephone Encounter - Ofe Thomason MA - 07/01/2020 11:53 AM PDTPer , he re viewed recent records. Ok to proceed with colostomy takedown. Consult to OR placed. Aleta malik schedule surgery date & preop appt. Attempted to reach pt to relay this info. Left detailed msg explaining he should expect a c all back from our senior writer. Asked him to call the office with any questions he has. Electro nically signed by Ofe Villaseñor MA at 07/01/2020 11:56 AM PDTTelephone Encounter - Ofe Thomason MA - 07/01/2020 10:17 AM PDTEmailed to inform him pt complet ed Colonoscopy and Colon barium enema. Asked for a plan moving forward. elephone Encounter - Ofe Castillo MA - 07/01/2020 8:06 AM PDTCalled 's office and requested 06/25 Colonosc opy report. No biopsies were taken.Electronically signed by Ofe Villaseñor MA at 8:08 AM PDTTelephone Encounter - Jasmina [place] - 06/30/2020 1:49 PM PDTPerson ca lling? (Patient, spouse, caregiver, medical office, etc): pt Reason for call: has had colonoscopy done on 06/22 and on 06/25 at [facility] Provider / Specialty: gs/colo Call back number confirmed?: yes Best call back number [phone]/ ext: x / noted under contact or phone tab. Caller would like a call back to discuss. Ok to leave a detailed message?: yes documented in this encount er Plan of Treatment +--------+ + + + + | Date | Type | Specialty | Care Team | Description | +--------+ + + + + | 08/07/ | Telephone-S | Pre-operative | 4, [facility] Blanching Machine Operator [address] | | | 2019 | cheduled | Medicine | [address] | | | | | | [place] [address] | | +--------+ + + + + | 08/13/ | Office | Surgery | Cyndie Hunt MD | | | 2019 | Visit | | [address] | | | | | | [place] [facility] | | | | | | [place] [address] | | | | | | [phone] | | | | | | | [...] | | | | | [address] [place], | | | | | | [place] [address] | | | | | | [phone] | | | | | | | | +--------+ + + + + documented as of this encounter Visit Diagnoses Not on filedocumented in this encounter"
--- OUTSIDE RECORDS SUMMARY | ~2020-07-24 | XMS | Encounter Summary ---
Demographics + + + | Address | [address] | | | [place] [address] | + + + | Home Phone [...] Author + + + | Author | [facility] | + + + | Organization | [facility] | + + + | [...] [place] | | | | | [address] | | + + + + + Care Team Providers + +------+ + | Care Beauty Culture Teacher Name | Role | Phone | + [...] Closed | | Physical | Diagnoses | Volodymyr, | | | | | Therapy | Impingement | Roberto Mix MD | | | | | | syndrome of | [address] | | | | | | left | [address] | | | | | | shoulder | [place], | | | | | | Status post | [place] | | | | | | rotator cuff | [address] | | | | | | repair | Phone: | | | | | | Procedures | [phone] | | | | | | PHYSICAL | Fax: | | | | | | THERAPY | [phone] | | | | | | REFERRAL | | | +--------+--------+ + + + + Reason for Visit + + + | Reason | Comments | + + + | Shoulder pain | left shoulder; s/p right RCR | + + + Encounter Details +--------+---------+ + + + | Date | Type | Department | Care Team | Description | +--------+---------+ + + + | 08/30/ | Office | [facility] | Roberto Helm, | Impingement syndrome | | 2018 | Visit | Sports Medicine & | [address] | of left shoulder | | | | Orthopaedic Surgery | [address]vd [place], [place] | (Primary Dx); Status | | | | [address] | [address] | post right rotator | | | | [place], [place] | [phone] | cuff repair | | | | [address] | | | | | | [phone] | | | +--------+---------+ + + + [...] of this encounter Patient Instructions Patient Instructions Christy Sparrow MA - 08/30/2018 2:15 PM PDTWe are going to refer you [facility] [place]. They should be calling you to schedule. Their phone number is . Schedule a follow up to check your progress is 2 months. documented in this encounter Progress Notes Roberto Helm MD - 08/30/2018 2:15 PM PDTFormatting of this note might be different fr om the original. Chief Complaint: Left shoulder pain. HPI: Mirtha Hall is a 48 y.o. male from [place], [place] who returns to the office today for evaluation of left shoulder pain. Patient is also here for follow up S/P right maxime ulder rotator cuff repair on 03/21/18. At his last office visit patient was instructed to tr y aleve or advil for pain in his left shoulder, and work on home exercises. 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 Symptoms are improving. The pain cortez s wake the patient at night. It is associated with weakness. Symptoms are aggravated by o verhead activities, and improve with rest. He is using naproxen for the pain. Past Medical and Surgical History: Reviewed per patient intake form. No past medical history on file. Past Surgical History Procedure Laterality Date Foreign body removal, rectum multiple admissions for foreign body removal. Is not sure about how many surgies Arthroscopic decompression of right shoulder with rotator cuff repair Right 03/21/2018 Dr Helm Current Outpatient Prescriptions Medication ranitidine 150 mg oral tablet No current facility-administered medications for this visit. No Known Allergies Family History Problem Relation Arthritis Mother Hepatitis Father Arthritis Other Social history: Occupation: CONTRACTOR He reports that he quit smoking about 3 years ago. He has never used smokeless tobacco. He reports that he drinks about 4.2 - 8.4 oz of alcohol per week . He reports that he does not use drugs. Review of Systems: Completed and reviewed with patient per patient intake form. Pertinent positives noted in HPI. See scanned document for reference. Physical Exam: There were no vitals taken for this visit. General/Constitutional: Well developed, well nourished male, alert and oriented, and in no acute distress. Right shoulder: Inspection: No swelling or obvious deformities. Palpation: No pain. Range of motion: FF 130. ER 30. IR 30. Strength: FF 4/5. ER 4/5. Stability: good Special Tests: neg speeds left shoulder- Inspection: No swelling or obvious deformities. Palpation: Nontender. Range of motion: Full range of motion. Strength: Normal strength. Positive imopingement Diagnostic Imaging: Left shoulder xray XR examination reveals no evidence of acute fracture. Assessment: Right shoulder pain sp rotator cuff repair and residual weakness. Left shoulder impingement Plan: PT Follow up: 8 weeks do cumented in this encounter Miscellaneous Notes Addendum Note - Christy Sparrow MA - 08/30/2018 2:15 PM PDT Addended by: CHRISTY SPARROW MA on: 08/31/2018 02:05 PM Modules accepted: Orders documented in this en counter Plan of Treatment +--------+ + + + + | Date | Type | Specialty | Care Team | Description | +--------+ + + + + | 08/07/ | Telephone-S | Pre-operative | 4, [facility] [address] Dr[address] | | | 2019 | cheduled | Medicine | [address] | | | | | | [place] [address] | | +--------+ + + + + | 08/13/ | Office | Surgery | Cyndie Hunt MD | | 2019 | Visit | | [address] | | | | | | [place] [facility] | | | | | | [place] [address] | | | | | | [phone] | | | | | | | | +--------+ + + + + | 08/14/ | Procedure | Surgery | | | | 2019 | Pass | | | | +--------+ + + + + | 09/10/ | Telephone-S | Surgery | Cyndie Hunt MD | | | 2019 | gita | | [address] | | | | | | [place], | | | | | | [place] [address] | | | | | | [phone] | | | | | | | | +--------+ + + + + documented as of this encounter Procedures + +--------+ + + + | Procedure Name | Priori | Date/Time | Associated Diagnosis | Comments | | | ty | | | | + +--------+ + + + | X-RAY SHOULDER 3+ | Routin | 08/30/2018 | Impingement | Results for this | | VIEWS LEFT | e | 2:00 PM | syndrome of left | procedure are in the | | | | PDT | shoulder | results section. | + +--------+ + + + documented in this encounter Results X-RAY SHOULDER 3+ VIEWS LEFT (08/30/2018 2:00 PM PDT) + + | Specimen | + + | | + + + + + | Narrative | Performed At | + + + | [address] | [facility] | | [place] [address] [facility] | | [phone] Name: MIRTHA HALL Phys: | RADIOLOGY | | ROBERTO HELM : 1970 Sex: M CSN: | | | [id number] MR# [id number] Exam Date: 08/30/2018 | | | EXAM: X-RAY SHOULDER 3+ VIEWS LEFT CLINICAL HISTORY: Left | | | shoulder pain. COMPARISON: None available. TECHNIQUE: AP | | | internal rotation, AP external rotation, axillary and scapular Y | | | views of the left shoulder were obtained. FINDINGS: Bones: | | | There is no acute fracture, abnormal alignment or focal osseous | | | destruction. Joints: There is moderate AC joint arthropathy. | | | Soft tissues: Normal.The visualized left lung is clear. | | | IMPRESSION: Moderate AC joint arthropathy. No acute bony or soft | | | tissue abnormality. REPORT SIGNED IN OTHER VENDOR SYSTEM | | | 08/30/2018 Reported by: LUCIUS YARBROUGH MD Electronically | | | signed by: LUCIUS YARBROUGH MD Transcribed Date/Time: 08/30/2018 | | | 15:35 Rehabilitation Nurse: [place] | | + + + + + | Procedure Note | + + | Interface, Radiology Results - 08/30/2018 3:40 PM PDT [address] | | [address] [place] [address] | | Name: MIRTHA HALL Phys: ROBERTO HELM : 1970 Sex: M | | CSN: [id number] MR# [id number] Exam Date: 08/30/2018 EXAM:X-RAY SHOULDER 3+ | | VIEWS LEFT CLINICAL HISTORY:Left shoulder pain. COMPARISON:None available. TECHNIQUE:AP | | internal rotation, AP external rotation, axillary and scapular Yviews of the left | | shoulder were obtained. FINDINGS:Bones: There is no acute fracture, abnormal alignment | | or focalosseous destruction. Joints: There is moderate AC joint arthropathy. Soft | | tissues: Normal.The visualized left lung is clear. IMPRESSION:Moderate AC joint | | arthropathy. No acute bony or soft tissueabnormality. REPORT SIGNED IN OTHER VENDOR | | SYSTEM 08/30/2018 Reported by: LUCIUS YARBROUGH MD Electronically signed by: LUCIUS | | MD ZENON Transcribed Date/Time: 08/30/2018 15:35Transcriptionist: FLUENCY | |EXAM: | |X-RAY SHOULDER 3+ VIEWS LEFT | | | |CLINICAL HISTORY: | |Left shoulder pain. | | | |COMPARISON: | |None available. | | | |TECHNIQUE: | |AP internal rotation, AP external rotation, axillary and scapular Y | |views of the left shoulder were obtained. | | | |FINDINGS: | |Bones: There is no acute fracture, abnormal alignment or focal | |osseous destruction. | | | |Joints: There is moderate AC joint arthropathy. | | | |Soft tissues: Normal.The visualized left lung is clear. | | | |IMPRESSION: | |Moderate AC joint arthropathy. No acute bony or soft tissue | |abnormality. | | | | | | REPORT SIGNED IN OTHER VENDOR SYSTEM 08/30/2018 | |Reported by: LUCIUS YARBROUGH MD | | | |Electronically signed by: LUCIUS YARBROUGH MD | | | |Transcribed Date/Time: 08/30/2018 15:35 | |Rehabilitation Nurse: FLUENCY | | | | | | [...] + | Impingement syndrome of left shoulder - Primary Other affections of shoulder region, | | not elsewhere classified | + + | Status post right rotator cuff repair Other postprocedural status | + + documented in this encounter"
--- OUTSIDE RECORDS SUMMARY | ~2020-07-24 | XMS | Encounter Summary ---
Demographics + + + | Address | [address] | | | [place] [address] | + + + | Home Phone | | + + + | Preferred Language | Unknown | + + + | Marital Status | Single | + + + | Oriental Orthodox Affiliation | NON | + + + | Race | White | + + + | Ethnic Group | Not or | + + + Author + + + | Author | [facility] | + + + | Organization | [facility] | + + + | [...] [place] | | | | | [address] | | + + + + + Care Team Providers + +------+ + | Care Final Inspector Paper Name | Role | Phone | + +------+ + | Francisco Macias | PCP | | + +------+ + Reason for Referral PROC - Inpatient Surgery (Routine) + +--------+ + + + + | Status | Reason | Specialty | Diagnoses / | Referred By | Referred To | | | | | Procedures | Contact | Contact | + +--------+ + + + + | Pending | | Surgery | Diagnoses | Cyndie Hunt, | Cyndie Hunt, | | Review | | | Colostomy | [address] | | | | | care ([facility]) | [address] | | | | | Procedures | [place] | [place] | | | | | REQUEST TO | [place], [place] | [place] | | | | | SURGERY | [address] | [address] | | | | | FACILITY SERVICE ASSOCIATE | Phone: | Phone: | | | | | UT CLOSE | [phone] | [phone] | | | | | ENTEROSTOMY, | Fax: | Fax: | | | | | RESEC+ANAST | [phone] | [phone] | | | | | UT PART | | | | | | | REMOVAL | | | | | | | COLON W | | | | | | | COLOPROCTOST | | | | | | | STEPHANIE UT | | | | | | | MOBILIZE | | | | | | | SPLENIC FLEX | | | | | | | UT CLOSE | | | | | | | ENTEROSTOMY, | | | | | | | RESEC+COLORE | | | | | | | C ANAS UT | | | | | | | SIGMOIDOSCOP | | | | | | | Y,DIAG INCL | | | | | | | SPEC COLLEC | | | | | | | open | | | | | | | colostomy | | | | | | | takedown, | | | | | | | flex sig, | | | | | | | possible | | | | | | | loop | | | | | | | ileostomy; | | | | | | | Urology for | | | | | | | rigid | | | | | | | cystoscopy | | | | | | | and | | | | | | | bilateral | | | | | | | ureteral | | | | | | | stents open | | | | | | | / NA | | | + +--------+ + + + + Encounter Details +--------+ + + + + | Date | Type | Department | Care Team | Description | +--------+ + + + + | 07/01/ | Day Haul Youth Supervisor | Digestive Health | Cyndie Hunt MD | Colostomy care (HCC) | | 2020 | | Center at [facility] [address] | [address] | (Primary Dx) | | | | [facility] | [facility], | | | | | [facility] and | [place] [address] | | | | | [place] [address] | [phone] | | | | | [place], [place] | | | | | | [address] | | | | | | [phone] | | | +--------+ + + + [...] this encounter Miscellaneous Notes Telephone Encounter - Cyndie Hunt MD - 07/01/2020 11:29 AM PDTColonoscopy via anus and ostom y ok. 90 cm of colon left Gastrograffin study: no leak from top of rectal pouch. 15-20 cm of rectum left Colostomy takedown should be possible. Surgery request placed. documented in this encounte r Plan of Treatment +--------+ + + + + | Date | Type | Specialty | Care Team | Description | +--------+ + + + + | 08/07/ | Telephone-S | Pre-operative | 4, [facility] Saw Operator [address] | | | 2019 | cheduled | Medicine | [address] | | | | | | [place] [address] | | +--------+ + + + + | 08/13/ | Office | Surgery | Cyndie Hunt MD | | | 2019 | Visit | | [address] | | | | | | [place], | | | | | | [place] [address] | | | | | | [phone] | | | | | | | [...] | | | | | | [place] [address] | | | | | | [phone] | | | | | | | | +--------+ + + + + documented as of this encounter Visit Diagnoses + + | Diagnosis | + + | Colostomy care (HCC) - Primary Attention to colostomy | + + documented in this encounter"
--- OUTSIDE RECORDS SUMMARY | ~2020-07-24 | XMS | Encounter Summary ---
Demographics + + + | Address | [address] | | | [place] [address] | + + + | Home Phone | | + + + | Preferred Language | Unknown | + + + | Marital Status | Single | + + + | Mandaeism Affiliation | NON | + + + | Race | White | + + + | Ethnic Group | Not or | + + + Author + + + | Author | [facility] | + + + | Organization | [facility] | + + + [...] [place] | | | | | [address] | | + + + + + Care Team Providers + +------+ + | Care Disc Jockey Name | Role | Phone | + +------+ + | No Pcp Per Patient | PCP | Unavailable | + +------+ + Encounter Details +--------+ + + + + | Date | Type | Department | Care Team | Description | +--------+ + + + + | 11/22/ | Document-Sc | [facility] | Beni Helm, | | | 2018 | anned | Sports Medicine & | MD [address] | | | | | Orthopaedic Surgery | [place] | | | | | [address] | [address] | | | | | [place] | [phone] | | | | | [address] | | | | | | [phone] | | | +--------+ + + + [...] | Telephone-S | Pre-operative | 4, [facility] [address] | | | 2020 | cheduled | Medicine | [address] | | | | | | [place] [address] | | +--------+ + + + + | 08/13/ | Office | Surgery | Cyndie Hunt MD | | | 2019 | Visit | | [address] | | | | | | [place], | | | | | | [place] [address] | | | | | | [phone] | | | | | | | [...] | | | | | | [place] [address] | | | | | | [phone] | | | | | | | | +--------+ + + + + documented as of this encounter Visit Diagnoses Not on filedocumented in this encounter"
--- OUTSIDE RECORDS SUMMARY | ~2020-07-24 | XMS | Encounter Summary ---
Demographics + + + | Address | [address] | | | [place] [address] | + + + | Home Phone | | + + + | Preferred Language | Unknown | + + + | Marital Status | Single | + + + | Denominational Affiliation | NON | + + + | Race | White | + + + | Ethnic Group | Not or | + + + Author + + + | Author | [facility] | + + + | Organization | [facility] | + + + [...] [place] | | | | | [address] | | + + + + + Care Team Providers + +------+ + | Care Prototype Model Maker Name | Role | Phone | + +------+ + | No Pcp Per Patient | PCP | Unavailable | + +------+ + Reason for Referral Diagnostic Testing (Routine) +--------+--------+ + + + + | Status | Reason | Specialty | Diagnoses / | Referred By | Referred To | | | | | Procedures | Contact | Contact | +--------+--------+ + + + + | Closed | | Radiology | Diagnoses | Zechariah | KIN CARY | | | | | Impingement | Marley Duran, | [facility] | | | | | syndrome of | PA-C [address] | [address]ENTER [address] | | | | | right | [address] | [address] | | | | | shoulder | [facility] | [place], [place] | | | | | Procedures | Rd | [address] | | | | | MRI SHOULDER | [facility] [place] | Phone: | | | | | RIGHT WO | [address] | [phone] | | | | | CONTRAST [place] | Phone: | Fax: | | | | | MRI, JOINT | [phone] | [phone] | | | | | UPPER EXTREM | Fax: | | | | | | | [phone] | | +--------+--------+ + + + + Reason for Visit + +--------+ + | Reason | Onset | Comments | | | Date | | + +--------+ + | Radiology Order | 10/13/ | | | | 2016 | | + +--------+ + Encounter Details +--------+ + + + + | Date | Type | Department | Care Team | Description | +--------+ + + + + | 10/13/ | Telephone | [facility] | Marley Apple | Radiology Order | | 2016 | | Sports Medicine & | VIRAL Duran [address] [facility] | | | | | Orthopaedic Surgery | [address] | | | | | [address] | [place], [place] | | | | | [place] | [address] | | | | | [address] | [phone] | | | | | [phone] | | | +--------+ + + + [...] Telephone Encounter - Callie Magaña - 10/26/2017 4:08 PM PSTPatient's MRI CD has not be en received in our office, attempted to call the patient and inform if we don't get CD by hi s appt scheduled for Tuesday10/28/17 we will have to r/s, unless patient has a copy of CD. Andi guadarrama to [facility], box full. TTelephone Encounter - Zechariah Wang - 10/26/2017 3:[address] [facility] to follow-up on whether they gave patient CD of MRI image s at his appointment or, if they mailed a copy of the disc to our office. No answer, [facility] to call back. [facility] - Radiology [address] [address] ddendum Note - Marley Apple PA-C - 10/14/2017 3:50 PM PST Addended by: MARLEY SUN on: 10/14/2017 03:50 PM Modules accepted: Orders elephone Enco cassandra - Mario Alberto Blandon MA - 10/13/2017 11:53 AM PSTPatient called this morning and stated albertina t he was in pain and the shoulder injection did not help and would like to have a MRI order sent to the [facility] A M PSTdocumented in this encounter Plan of Treatment +--------+ + + + + | Date | Type | Specialty | Care Team | Description | +--------+ + + + + | 08/07/ | Telephone-S | Pre-operative | , [facility] Applications Programmer [address] | | | 2019 | cheduled | Medicine | [address] | | | | | | [place] [address] | | +--------+ + + + + | 08/13/ | Office | Surgery | Cyndie Hunt MD | | 2019 | Visit | | [address] | | | | | | [place], | | | | | | [place] [address] | | | | | | [phone] | | | | | | | [...] | | | | | [place] [place], | | | | | | [place] [address] | | | | | | [phone] | | | | | | | | +--------+ + + + + + +---------+--------+ + + | Name | Type | Priori | Associated Diagnoses | Order Schedule | | | | ty | | | + +---------+--------+ + + | MRI SHOULDER RIGHT | Imaging | Routin | Impingement | Expected: | | WO CONTRAST | | e | syndrome of right | 10/14/2017, Expires: | | | | | shoulder | 11/14/2018 | + +---------+--------+ + + documented as of this encounter Visit Diagnoses + + | Diagnosis | + + | Impingement syndrome of right shoulder - Primary Other affections of shoulder region, | | not elsewhere classified | + + documented in this encounter"
--- OUTSIDE RECORDS SUMMARY | ~2020-07-24 | XMS | Encounter Summary ---
Demographics + + + | Address | [address] | | | [place] [address] | + + + | Home Phone | | + + + | Preferred Language | Unknown | + + + | Marital Status | Single | + + + | Orthodoxy Affiliation | NON | + + + | Race | White | + + + | Ethnic Group | Not or | + + + Author + + + | Author | [facility] | + + + | Organization | [facility] | + + + [...] [place] | | | | | [address] | | + + + + + Care Team Providers + +------+ + | Care Lieutenant Ballistics Name | Role | Phone | + +------+ + | Francisco Macias | PCP | | + +------+ + Encounter Details +--------+ + + + + | Date | Type | Department | Care Team | Description | +--------+ + + + + | 11/30/ | Document-Sc | [facility] | Beni Helm, | | | 2019 | anned | Sports Medicine & | MD [address] | | | | | Orthopaedic Surgery | [address] | | | | | [address] | [address] | | | | | [place] | [phone] | | | | | [address] | | | | | | [phone] | | | +--------+ + + + [...] 08/07/ | Telephone-S | Pre-operative | 4, [facility] Electrical Prospecting Operator [address] | | | 2020 | cheduled | Medicine | [address] | | | | | | [place] [address] | | +--------+ + + + + | 08/13/ | Office | Surgery | Cyndie Hunt MD | | | 2019 | Visit | | [address] | | | | | | [place], | | | | | | [place] [address] | | | | | | [phone] | | | | | | | [...] | | | | | | [place] [address] | | | | | | [phone] | | | | | | | | +--------+ + + + + documented as of this encounter Visit Diagnoses Not on filedocumented in this encounter"
--- OUTSIDE RECORDS SUMMARY | ~2020-07-24 | XMS | Encounter Summary ---
Demographics + + + | Address | [address] | | | [place] [address] | + + + | Home Phone | | + + + | Preferred Language | Unknown | + + + | Marital Status | Single | + + + | Catholic Affiliation | NON | + + + | Race | White | + + + | Ethnic Group | Not or | + + + Author + + + | Author | [facility] | + + + | Organization | [facility] | + + + | Address | Unknown | + + + | Phone | Unavailable | + + + Support + + + + + | Name | Relationship | Address | Phone | + + + + + | Abdon Gross | ECON | [address] | | | [address] | | [place] | | | | | [address] | | + + + + + Care Team Providers + +------+ + | Care Crime Analyst Name | Role | Phone | + +------+ + | Francisco Maicas | PCP | | + +------+ + Encounter Details +--------+ + + + + | Date | Type | Department | Care Team | Description | +--------+ + + + + | 04/08/ | Telephone | [facility] Primary Care | Brian Subramanian, | | | 2020 | | at [facility] | [address] | | | | | [address] | [place], [place] | | | | | [facility] | [address] | | | | | and Healing, | [phone] | | | | | | | | | | | Floor [place], [place] | | | | | | [address] | | | | | | [phone] | | | +--------+ + + + [...] this encounter Miscellaneous Notes Telephone Encounter - Alisa Huynh RN - 04/08/2020 2:48 PM PDTErroneous encounterElectronic ally signed by Alisa Huynh RN at 04/08/2020 2:50 PM PDTdocumented in this encounter Plan of Treatment +--------+ + + + + | Date | Type | Specialty | Care Team | Description | +--------+ + + + + | 08/07/ | Telephone-S | Pre-operative | 4, [facility] [address] | | | 2019 | cheduled | Medicine | [address] | | | | | | [place] [address] | | +--------+ + + + + | 08/13/ | Office | Surgery | Cyndie Hunt MD | | | 2019 | Visit | | [address] | | | | | | [place], | | | | | | [place] [address] | | | | | | [phone] | | | | | | | | +--------+ + + + + | 08/14/ | Procedure | Surgery | | | | 2019 | Pass | | | | +--------+ + + + + | 09/10/ | Telephone-S | Surgery | Cyndie Hunt MD | | | 2020 | cheduled | | [address] | | | | | | [place], | | | | | | [place] [address] | | | | | | [phone] | | | | | | | | +--------+ + + + + documented as of this encounter Visit Diagnoses Not on filedocumented in this encounter"
--- OUTSIDE RECORDS SUMMARY | ~2020-07-24 | XMS | Encounter Summary ---
Demographics + + + | Address | [address] | | | [place] [address] | + + + | Home Phone | | + + + | Preferred Language | Unknown | + + + | Marital Status | Single | + + + | Temple Affiliation | NON | + + + | Race | White | + + + | Ethnic Group | Not or | + + + Author + + + | Author | [facility] | + + + | Organization | [facility] | + + + | [...] [place] | | | | | [address] | | + + + + + Care Team Providers + +------+ + | Care Bartender Server Name | Role | Phone | + +------+ + | No Pcp Per Patient | PCP | Unavailable | + +------+ + Encounter Details +--------+ + + + + | Date | Type | Department | Care Team | Description | +--------+ + + + + | 11/22/ | Anesthesia | [facility] | Lizzie Crocker, | | | 2018 | Event | [facility] [address] | RN [address] | | | | | E The | [place] | | | | | [place] | [address] | | | | | [address] | | | +--------+ + + + [...] documented as of this encounter Miscellaneous Notes PMC/ANE PreOp Note - Lizzie Crocker RN - 11/11/2017 11:01 AM PST ROS Pertinent HPI: Pulmonary: No dx of sleep apnea Risks factors for sleep apnea: Pt SNORE's loudly (louder than talking) Male gender Pt at low risk of SHERWIN Cardiovascular: Able to walk up 2 FOS with no CP or SOB. Patient is active. GI/Hepatic: : Endo: Neurological: psychiatric problem attention deficit hyperactivity disorder Current Pain Level: MS: Back pain d/t compressed vertebrae. Heme/Onc: Skin: Obstetrics: documented in this en counter Plan of Treatment +--------+ + + + + | Date | Type | Specialty | Care Team | Description | +--------+ + + + + | 08/07/ | Telephone-S | Pre-operative | 4, [facility] [address] | | | 2019 | cheduled | Medicine | [address] | | | | | | [place] [address] | | +--------+ + + + + | 08/13/ | Office | Surgery | Cyndie Hunt MD | | | 2019 | Visit | | [address] | | | | | | [place], | | | | | | [place] [address] | | | | | | [phone] | | | | | | | [...] | | | | | | [place] [address] | | | | | | [phone] | | | | | | | | +--------+ + + + + documented as of this encounter Visit Diagnoses Not on filedocumented in this encounter"
--- OUTSIDE RECORDS SUMMARY | ~2020-07-24 | XMS | Encounter Summary ---
Demographics + + + | Address | [address] | | | [place] [address] | + + + | Home Phone [...] [place] | | | | | [address] | | + + + + + Care Team Providers + +------+ + | Care Metal Container Maker Name | Role | Phone | [...] | | | | Rd | [place] [address] | | | | | Impingement | [place], [place] | Phone: | | | | | syndrome of | [address] | [phone] | | | | | right | Phone: | Fax: | | | | | shoulder | [phone] | [phone] | | | | | Procedures | Fax: | | | | | | REQUEST TO | [phone] | | | | | | SURGERY | | | | | | | PAN DEVULCANIZER | | | | | | | [facility] | | | | | | | ARTHROSCOP,S | | | | | | | URG,W/ROTAT | | | | | | | CUFF REPR | | | | | | | [facility] | | | | | | | ARTHROSCOP,P | | | | | | | ART | | | | | | | ACROMIOPLAS | | | | | | | W/CORACOACRO | | | | | | | M [facility] | | | | | | [...] Description | +--------+---------+ + + + | 11/22/ | Surgery | [facility] | Beni Helm, | Canceled | | 2018 | | [facility] [address] | MD [address] | SHOULDER, ROTATOR | | | | [address] [place], [place] | CUFF REPAIR WITH | | | | [place] | [address] | SUBACROMIAL | | | | [address] | [phone] | DECOMPRESSION AND | | | | | | DISTAL CLAVICLE | | | | | | EXCISION, RIGHT | +--------+---------+ + + + Social History [...] - 11/22/2017 8:28 AM PSTpatient arrived to [facility] and showed me a Wha t he thinks spiderbite on his right forearm. VSS but arm was visibly red with a small bite m ark in center. I called [place] and spoke with Charge/Dr regarding this. Sent a picture of site t o DR. Dr felt that he would be more comfortable waiting to do the SX at this time and to hav e the pateint call his office tomorrow and let them know how the site was doing. Patient sta valarie understanding. d ocumented in this encounter Plan of Treatment +--------+ + + + + | Date | Type | Specialty | Care Team | Description | +--------+ + + + + | 08/07/ | Telephone-S | Pre-operative | 4, [facility] Metal Molder [address] | | 2019 | cheduled | Medicine | [address] | | | | | | [place] [address] | | +--------+ + + + + | 08/13/ | Office | Surgery | Cyndie Hunt MD | | 2019 | Visit | | [address] | | | | | | [place], | | | | | | [place] [address] | | | | | | [phone] | | | | | | | [...] | | | | | | [place] [address] | | | | | | [phone] | | | | | | | [...] | + + + | [address] [place] [address] | [facility] | | [place] [address] | [facility] | | [phone] Name: MIRTHA HALL Phys: | RADIOLOGY | | DARIA MESSINA : 1970 Sex: M | | | CSN: [id number] MR# [id number] Exam Date: | | | 11/22/2017 EXAM: [...] Transcribed Date/Time: 11/22/2017 | | | 11:02 Rock Climbing Instructor: BARNEY | | + + + + + | Procedure Note | + + | Interface, Radiology Results - 11/22/2017 11:07 AM PST [address] | | [address] [place] [address] | | Name: MIRTHA HALL Phys: DARIA MESSINA : 1970 Sex: M | | CSN: [id number] MR# [id number] Exam Date: 11/22/2017 EXAM:FLUOROSCOPY OR <= | [...] | | |Transcribed Date/Time: 11/22/2017 11:02 | |Rock Climbing Instructor: FLUENCY | | | | | | [...]
--- OUTSIDE RECORDS SUMMARY | ~2020-07-24 | XMS | Encounter Summary ---
Demographics + + + | Address | [address] | | | [place] [address] | + + + | Home Phone [...] Author + + + | Author | [facility] | + + + | Organization | [facility] | + + + | Address | Unknown | + + + | Phone | Unavailable | + + + Support + + + + + | Name | Relationship | Address | Phone | + + + + + | Abdon Gross | ECON | [address] | | | [place] | | [place] | | | | | [address] | | + + + + + Care Team Providers + +------+ + | Care Gag Writer Name | Role | Phone | + +------+ + | Francisco Macias | PCP | | + +------+ + Encounter Details +--------+ + + + + | Date | Type | Department | Care Team | Description | +--------+ + + + + | 03/26/ | Document-Sc | UNKNOWN DEPARTMENT | Unknown . | | | 2013 | anned | [address] | | | | | | [address] | | | | | | [place] | | | | | | [address] | | | +--------+ + + + + Social History + +-------+ +--------+------+ | Tobacco Use | Types | Packs/Day | Years | Date | | | | | Used | | + +-------+ +--------+------+ | Never Assessed | | | | | + +-------+ +--------+------+ + + + | Sex Assigned at | Date Recorded | | | | + + + | Not on file | | + + + documented as of this encounter Procedure Saima Mares - 05/02/2014 7:27 AM PDTAssociated Order(s): RADIOLOGY documented in this encounter Plan of Treatment +--------+ + + + + | Date | Type | Specialty | Care Team | Description | +--------+ + + + + | 08/07/ | Telephone-S | Pre-operative | 4, [facility] [address] | | | 2019 | cheduled | Medicine | [address] | | | | | | [place] [address] | | +--------+ + + + + | 08/13/ | Office | Surgery | Cyndie Hunt MD | | | 2019 | Visit | | [address] | | | | | | [place], | | | | | | [place] [address] | | | | | | [phone] | | | | | | | [...] | | | | | | [place] [address] | | | | | | [phone] | | | | | | | | +--------+ + + + + documented as of this encounter Procedures + +--------+ + + + | Procedure Name | Priori | Date/Time | Associated Diagnosis | Comments | | | ty | | | | + +--------+ + + + | RADIOLOGY | | 03/26/2014 | | Results for this | | | | 12:00 AM | | procedure are in the | | | | PDT | | results section. | + +--------+ + + + documented in this encounter Results RADIOLOGY (03/26/2014 12:00 AM PDT) + + + | Narrative | Performed At | + + + | | | | | | + + + + + | Procedure Note | + + | Saima Lucero - 05/02/2014 7:27 AM PDT | + + documented in this encounter Visit Diagnoses Not on filedocumented in this encounter"
--- OUTSIDE RECORDS SUMMARY | ~2020-07-24 | XMS | Encounter Summary ---
Demographics + + + | Address | [address] | | | [place] [address] | + + + | Home Phone | | + + + | Preferred Language | Unknown | + + + | Marital Status | Single | + + + | Congregational Affiliation | NON | + + + | Race | White | + + + | Ethnic Group | Not or | + + + Author + + + | Author | [facility] | + + + | Organization | [facility] | + + + [...] [place] | | | | | [address] | | + + + + + Care Team Providers + +------+ + | Care Junior Copywriter Name | Role | Phone | + [...] Closed | | Radiology | Diagnoses | Mouna | [facility] | | | | | Lumbar | Alber Stone MD | IFTIKHAR MED | | | | | radiculopath | [address] [facility] | [address] | | | | | y | [address] | [address] | | | | | Procedures | [place] | [place] | | | | | MRI SPINE | [place], [place] | [address] | | | | | LUMBAR WO | [address] | Phone: | | | | | CONTRAST [place] | Phone: | [phone] | | | | | MRI, LUMBAR | [phone] | Fax: | | | | | SPINE | Fax: | [phone] | | | | | | [phone] | | +--------+--------+ + + + + Physical Therapy (Routine) +--------+--------+ + + + + | Status | Reason | Specialty | Diagnoses / | Referred By | Referred To | | | | | Procedures | Contact | Contact | +--------+--------+ + + + + | Closed | | Physical | Diagnoses | Mouna | Caleb | | | | Therapy | Lumbar | Alber Stone MD | Iftikhar PT | | | | | radiculopath | [address] | [place] | | | | | y | [address] | [address] | | | | | Procedures | [place] | St | | | | | PHYSICAL | [place] | [place] | | | | | THERAPY | [address] | [address] | | | | | REFERRAL | Phone: | Phone: | | | | | | [phone] | [phone] | | | | | | Fax: | Fax: | | | | | | [phone] | [phone] | +--------+--------+ + + + + Reason for Visit + + + | Reason | Comments | + + + | New Patient Visit | MANAGER LAW here in clinic for LBP. | + + + Consultation (Routine) + [...] | | | | | rotator | MUSEUM ATTENDANT | Anselmo Hernadez | | | | | cuff tear or | [place] | [address] | | | | | rupture of | [place] | [place], | | | | | right | Community | [place] [address] | | | | | shoulder, | [facility] [address] | Phone: | | | | | not | [address] | [phone] | | | | | specified as | [place], [place] | Fax: | | | | | traumatic | [address] | [phone] | | | | | Pain in | Phone: | | | | | | right | [phone] | | | | | | shoulder | Fax: | | | | | | Other muscle | [phone] | | | | | | spasm | | | | | | | Sciatica, | | | | | | | right side | | | + +--------+ + + + + Encounter Details +--------+---------+ + + + | Date | Type | Department | Care Team | Description | +--------+---------+ + + + | 06/24/ | Office | [facility] | Alber Freire, | Lumbar radiculopathy | | 2017 | Visit | Sports Medicine & | [address] | (Primary Dx) | | | | Orthopaedic Surgery | [address] | | | | | [address] | [place], [place] | | | | | [place] | [address] | | | | | [address] | [phone] | | | | | [phone] | | | +--------+---------+ + + + [...] + + + + | Pulse | 88 | 06/24/2017 1:40 PM | | | | | PDT [...] + + + + | Weight | 84.5 kg (186 lb 4 | 06/24/2017 1:40 PM | | | | oz) | PDT | | + + + + + | Height | - | - | | + + + + + | Body Mass Index | 23.91 | 04/01/2014 11:27 AM | | | | | PDT | | + + + + + documented in this encounter Patient Instructions Patient Instructions Henry Felipe MA - 06/24/2017 2:00 PM PDTMRI referral in [place] on. documented in this encounter Progress Notes Alber Freire MD - 06/24/2017 2:00 PM PDTFormatting of this note might be different f rom the original. Referral: CC: back pain and leg numbness HPI: David Hall is a 47 y.o. male who has a ~5 years history of back pain and numbn ess in the right leg with pain radiating down the lateral thigh/calf and foot. . He describ es the symptoms as not improving. Pain is described as being 40% Back and 60% Arm/leg. The y improve with nothing specific. Having bowel movment makes the back pain worse. There is right leg numbness/tingling/weakness. He reports no fevers, chills, or unexplained weight loss. no loss of bowel or bladder cont rol. no balance problems, no new clumsiness or problems with manipulating fine objects. Prior treatment has included chiropractic, David Hall is currently taking the following medications for his symptoms: aleve prn . PMH: includes History reviewed. No pertinent past medical history. Please see the intake form which I have reviewed for full details. PSH: Please see the intake form which I have reviewed for full details. Medications: Current Outpatient Prescriptions: cyclobenzaprine 10 mg oral tablet, , Disp: , Rfl: meloxicam 15 mg oral tablet, , Disp: , Rfl: naproxen 500 mg oral tablet, , Disp: , Rfl: Allergies: No Known Allergies Social Hx: Social History Social History Marital status: Spouse name: N/A Number of children: N/A Years of education: N/A Social History Main Topics Smoking status: Former Smoker Smokeless tobacco: None Alcohol use 0.0 oz/week 2 - 5 Cans of beer per week Comment: 2-5 20oz cans/week Drug use: No Sexual activity: Not Asked Other Topics Concern None Social History Narrative Family Hx: I reviewed and noncontributory. ROS A 12 -point review of systems was performed and is negative with the exception of Pain as above Exam: Alert and Oriented x 3 General: The patient is a well-formed, well nourished individual in no acute distress who appears of stated age. Affect and mood are normal. Patient is normocephalic. Peripheral p ulses are normal. Breathing is normal. Abdomen is soft, non-tender. Skin is normal color, temperature. No significant lymphedema. Station and gait are guarde. Musculoskeletal: Examination of the lumbar spine demonstrates no skin changes or areas of induration. There are no masses, there is no surgical incision. Hip and knee ROM is normal . Coronal balance is clinically normal Sagittal balance is clinically normal Motor Score L R C5 (Elbow Flex) 5 5 C6 (Wrist Ext) 5 5 C7 (Elbow Ext) 5 5 C8 (FDP) 5 5 T1 (Pinky Abd) 5 5 L2 (Hip Flex) 5 5 L3 (Knee Ext) 5 5 L4 (Ankle DF) 5 5 L5 (EHL) 5 4 S1 (Ankle PF) 5 5 Tendon Reflexes L R C5-6 (Biceps) 2 2 C6 (Brachioradialis) 2 2 C7-8 (Triceps) 2 2 L3-4 (Knee Jerk) 2 2 S1-2 (Achilles) 2 2 Pathologic Reflexes L R Du no no Babinski no no Clonus no no Sensory Light Touch 0= Absent 1= decreased 2= normal Location L R C2 (Occiput) 2 2 C3 (Clavicle) 2 2 C4 (Shoulder) 2 2 C5 (Lat Elbow) 2 2 C6 (Thumb) 2 2 C7 (Long Finger) 2 2 C8 (Sm Finger) 2 2 T1 (Med Elbow) 2 2 T2 (Axilla) T4 (Nipple) T10 (Umbilicus) T12 (Inguinal Lig) L2 (Med. Thigh) 2 2 L3 (Med. Knee) 2 2 L4 (Med. Mall.) 2 1 L5 (Mid. Toe) 2 1 S1 (Lat. Heel) 2 2 Straight leg raise positive on the right Radiographs: X-Rays dated today show mild wedge compression deformity of T12, mild degenerative changes Impression: David Hall is a 47 y.o. male with apparent L5 radiculopathy Plan: MRI is needed to evaluate for compressive etiologies. This is ordered today. He is already doing PT for his shoulder so we can have them do some back exercises as well. He will call w hen MRI is done and I can review documented in this encounter Plan of Treatment +--------+ + + + + | Date | Type | Specialty | Care Team | Description | +--------+ + + + + | 08/07/ | Telephone-S | Pre-operative | 4, [facility] Brake Lining Finisher [address] | | | 2019 | cheduled | Medicine | [address] | | | | | | [place] [address] | | +--------+ + + + + | 08/13/ | Office | Surgery | Cyndie Hunt MD | | | 2019 | Visit | | [address] | | | | | | [place], | | | | | | [place] [address] | | | | | | [phone] | | | | | | | [...] | | | | | | [place] [address] | | | | | | [phone] | | | | | | | | +--------+ + + + + + +---------+--------+ + + | Name | Type | Priori | Associated Diagnoses | Order Schedule | | | | ty | | | + +---------+--------+ + + | MRI SPINE LUMBAR WO | Imaging | Routin | Lumbar | Expected: | | CONTRAST | | e | radiculopathy | 06/27/2017, Expires: | | | | | | 07/25/2018 | + +---------+--------+ + + documented as of this encounter Visit Diagnoses + + | Diagnosis | + + | Lumbar radiculopathy - Primary Thoracic or lumbosacral neuritis or radiculitis, | | unspecified | + + documented in this encounter"
--- OUTSIDE RECORDS SUMMARY | ~2020-07-24 | XMS | Encounter Summary ---
Demographics + + + | Address | [address] | | | [place] [address] | + + + | Home Phone [...] [place] | | | | | [address] | | + + + + + Care Team Providers + +------+ + | Care Schedule Planning Manager Name | Role | Phone | + +------+ + | Francisco Macias | PCP | | + +------+ + Encounter Details +--------+ + + + + | Date | Type | Department | Care Team | Description | +--------+ + + + + | 01/01/ | Document-Sc | [facility] | Beni Helm, | | | 2019 | anned | Sports Medicine & | MD Mabel [address]os | | | | | Orthopaedic Surgery | [facility] [address] | | | | | [address] | [address] | | | | | [place] | [phone] | | | | | [address] | | | | | | [phone] | | | +--------+ + + + [...] 08/07/ | Telephone-S | Pre-operative | 4, [facility] Market Consultant [address] | | | 2020 | cheduled | Medicine | [address] | | | | | | [place] [address] | | +--------+ + + + + | 08/13/ | Office | Surgery | Cyndie Hunt MD | | | 2019 | Visit | | [address] | | | | | | [place], | | | | | | [place] [address] | | | | | | [phone] | | | | | | | [...] | | | | | | [place] [address] | | | | | | [phone] | | | | | | | | +--------+ + + + + documented as of this encounter Visit Diagnoses Not on filedocumented in this encounter"
--- OUTSIDE RECORDS SUMMARY | ~2020-07-24 | XMS | Encounter Summary ---
Demographics + + + | Address | [address] | | | [place] [address] | + + + | Home Phone [...] [place] | | | | | [address] | | + + + + + Care Team Providers + +------+ + | Care Lump Maker Name | Role | Phone | + +------+ + | Francisco Macias | PCP | | + +------+ + Encounter Details +--------+ + + + + | Date | Type | Department | Care Team | Description | +--------+ + + + + | 08/30/ | Hospital | [facility] | | | | 2017 | Encounter | Sports Medicine & | | | | | | Orthopaedic Surgery | | | | | | [address] | | | | | | [place] | | | | | | [address] | | | | | | [phone] | | | +--------+ + + + [...] + + documented as of this encounter Medications at Time of Discharge + +-----+ +---------+ + + | Medication | Sig | Dispensed | Refills | Start | End Date | | | | | | Date | | + +-----+ +---------+ + + | naproxen 500 mg | | | 0 | 08/16/20 | | | oral tablet | | | | 18 | | + +-----+ +---------+ + + | ranitidine 150 mg | | | 0 | 02/07/20 | | | oral tablet | | | | 18 | | + +-----+ +---------+ + + documented as of this encounter Plan of Treatment +--------+ + + + + | Date | Type | Specialty | Care Team | Description | +--------+ + + + + | 08/07/ | Telephone-S | Pre-operative | 4, [facility] Or Hostess [address] | | | 2019 | cheduled | Medicine | [address] | | | | | | [place] [address] | | +--------+ + + + + | 08/13/ | Office | Surgery | Cyndie Hunt MD | | | 2019 | Visit | | [address] | | | | | | [place] [facility] | | | | | | [place] [address] | | | | | | [phone] | | | | | | | [...] | | | | | [place], | | | | | | [place] [address] | | | | | | [phone] | | | | | | | | +--------+ + + + + documented as of this encounter Visit Diagnoses Not on filedocumented in this encounter"
--- OUTSIDE RECORDS SUMMARY | ~2020-07-24 | XMS | Encounter Summary ---
Demographics + + + | Address | [id number] | | | [place] [address] | + + + | Home Phone [...] [place] | | | | | [address] | | + + + + + Care Team Providers + +------+ + | Care Pre Press Proofer Name | Role | Phone | + [...] Closed | | Physical | Diagnoses | Zechariah, | | | | | Therapy | Shoulder | Marley Duran, | | | | | | impingement, | PA-C [address] | | | | | | right | [address] | | | | | | Right | [address] | | | | | | shoulder | Rd | | | | | | pain, | [place], [place] | | | | | | unspecified | [address] | | | | | | chronicity | Phone: | | | | | | Procedures | [phone] | | | | | | PHYSICAL | Fax: | | | | | | THERAPY | [phone] | | | | | | REFERRAL | | | +--------+--------+ + + + + Reason for Visit + + + | Reason | Comments | + + + | New Patient Visit | Rt Shoulder | + + + Consultation (Routine) + [...] | | | | | 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 | Anselmo Hernadez | | | | | cuff tear or | [place] | [address] | | | | | rupture of | [place] | [place], | | | | | right | [facility] | [place] [address] | | | | | shoulder, | [facility] [address] | Phone: | | | | | not | [address] | [phone] | | | | | specified as | [place], [place] | Fax: | | | | | traumatic | [address] | [phone] | | | | | Pain in | Phone: | | | | | | right | [phone] | | | | | | shoulder | Fax: | | | | | | Other muscle | [phone] | | | | | | spasm | | | | | | | Sciatica, | | | | | | | right side | | | + +--------+ + + + + Encounter Details +--------+---------+ + + + | Date | Type | Department | Care Team | Description | +--------+---------+ + + + | 04/05/ | Office | [facility] | Roberto Helm, | Shoulder | | 2017 | Visit | Sports Medicine & | MD Mabel [address] | impingement, right | | | | Orthopaedic Surgery | [address] [place], [place] | (Primary Dx); Right | | | | [address] | [address] | shoulder pain, | | | | [place], [place] | [phone] | unspecified | | | | [address] | | chronicity | | | | [phone] | | | +--------+---------+ + + + [...] +---------+ + + | Blood Pressure | 118/82 | 04/05/2017 11:20 AM | | | | | PDT | | + +---------+ + + | Pulse | 86 | 04/05/2017 11:20 AM | | | | | PDT | | + +---------+ + + | Temperature | - | - | | + +---------+ + + | Respiratory Rate | - | - | | + +---------+ + + | Oxygen Saturation | 97% | 04/05/2017 11:20 AM | | | | | PDT [...] Instructions Patient Instructions Marley Apple PA-C - 04/05/2017 11:15 AM PDTCortisone injection given in right shoulder today Physical therapy has been ordered for you shoulder-try to go 1-2 times weekly Return to the clinic in about 6 weeks, sooner if needed Feel free to call the clinic if you have any questions or concerns [phone] ly signed by Marley Apple PA-C at 04/05/2017 11:37 AM PDT documented in this encounter Progress Notes Roberto Helm MD - 04/05/2017 11:15 AM PDTFormatting of this note might be different fr om the original. Chief Complaint: Right shoulder pain. HPI: Mirtha Hall is a 46 y.o. year old male from [place] who presents to the office to y for evaluation of right shoulder pain. He injured this linda years ago and is having pa in with activities that require right shoulder movement and strength overhead. He was referred to the office today for orthopedic evaluation by self. Current pain is 8/10 and is characterized as sharp, stabbing, aching and throbbing. Sympto ms are worsening. The pain does wake the patient at night. It is associated with weakness . Symptoms are aggravated by overhead activities, and improve with rest. He is using muscl e relaxants and meloxicam for the pain. Past Medical and Surgical History: Reviewed per patient intake form. History reviewed. No pertinent past medical history. Past Surgical History Procedure Laterality Date Foreign body removal, rectum multiple admissions for foreign body removal. Is not sure about how many surgies Current Outpatient Prescriptions Medication cyclobenzaprine 10 mg oral tablet meloxicam 15 mg oral tablet No current facility-administered medications for this visit. No Known Allergies FH: nc Social history: Occupation: No occupation listed. He reports that he has quit smoking. He does not have any smokeless tobacco history on file . He reports that he drinks alcohol. He reports that he does not use illicit drugs. Review of Systems: Completed and reviewed with patient per patient intake form. Pertinent positives noted in HPI. See scanned document for reference. Physical Exam: BP 118/82 | Pulse 86 | SpO2 97% General/Constitutional: Well developed, well nourished male, alert [...] there were no complications. Follow up: 6 weeks do cumented in this encounter Plan of Treatment +--------+ + + + + | Date | Type | Specialty | Care Team | Description | +--------+ + + + + | 08/07/ | Telephone-S | Pre-operative | 4, [facility] [address] | | | 2019 | cheduled | Medicine | [address] | | | | | | [place] [address] | | +--------+ + + + + | 08/13/ | Office | Surgery | Cyndie Hunt MD | | | 2019 | Visit | | [address] | | | | | | [place], | | | | | | [place] [address] | | | | | | [phone] | | | | | | | [...] | | | | | | [place] [address] | | | | | | [phone] | | | | | | | | +--------+ + + + + documented as of this encounter Procedures + +--------+ + + + | Procedure Name | Priori | Date/Time | Associated Diagnosis | Comments | | | ty | | | | + +--------+ + + + | [place] DRAIN/INJECT | Routin | 04/05/2017 | Shoulder | | | LARGE JOINT/BURSA | e | 11:55 AM | impingement, right | | | W/O US GUIDE | | PDT | | | + +--------+ + + + documented in this encounter Results X-RAY SHOULDER 3+ VIEWS RIGHT (04/05/2017 11:08 AM PDT) + + | Specimen | + + | | + + + + + | Narrative | Performed At | + + + | [address] [place] [address] | [facility] | | [place] [address] | [facility] | | [phone] Name: MIRTHA HALL Phys: | RADIOLOGY | | ROBERTO HELM : 1970 Sex: M CSN: | | | [id number] MR# [id number] Exam Date: 04/05/2017 | | | EXAM: [...] Transcribed Date/Time: 04/05/2017 11:48 | | | Rail Engineer: FLUENCY | | + + + + + | Procedure Note | + + | Interface, Radiology Results - 04/05/2017 11:52 AM PDT [address] | | [address] [place] [id number] | | Name: RAFAELPANDAANTONIO Phys: ROBERTO HELM : 1970 Sex: M | | CSN: [id number] MR# [id number] Exam Date: 04/05/2017 EXAM:X-RAY SHOULDER 3+ | [...] | | |Transcribed Date/Time: 04/05/2017 11:48 | |Rail Engineer: BARNEY | | | | | | | [...] impingement, right - Primary | + + | Right shoulder pain, unspecified chronicity | + + documented in this encounter Administered Medications + +--------+ +------+------+ + | Medication Order | MAR | Action | Dose | Rate | Site | | | Action | Date | | | | + +--------+ +------+------+ + | Methylprednisolone Acetate 80 | Given | 5/30/201 | 1 mL | | Right | | Mg Intraarticular | | 7 11:56 | | | Shoulder | | | | PDT | | | | + +--------+ +------+------+ + +---+---+ | | | +---+---+ documented in this encounter"
[~2020-07-24 21:14] MED LIST: ADDERALL 30 MG30 MG PO; MOBIC7.5 MG PO; NAPROXEN500 MG PO; WELLBUTRIN XL150 MG PO
--- OUTSIDE RECORDS SUMMARY | 2020-07-24 21:20 | XMS ---
PreManage Notification: MIRTHA FREGOSO Security Game Designer/Creative Director Events No recent Security Events currently on file CRITERIA MET - [facility] CARE PROVIDERS BERNARD DUMAS Physician Visual Communications Instructor 04/05/2017-Current PHONE: Unknown [facility] Current PHONE: Unknown Dre has no Care Guidelines for this patient. ENate VISIT COUNT (12 MO.) [address] [place] [address] MELECIO Aguilar TOTAL 2 NOTE: Visits indicate total known visits. ED/UCC VISIT TRACKING (12 MO.) 07/24/2020 21:15 MELECIO Huynh [place] TYPE: Emergency COMPLAINT: - ABDOMINAL PAIN 12/16/2019 19:30 [facility] [place] TYPE: Emergency DIAGNOSES: - POSS INGESTION - Other psychoactive substance use, unspecified with intoxicati INPATIENT VISIT TRACKING (12 MO.) No inpatient visits to display in this time frame [email or web address]
== END 2020-07-24 23:54 | disposition home or self-care (01) ==
LOC: ED 21:14
DX: K59.00 Constipation, unspecified (principal); Z79.899 Other long term (current) drug therapy
CPT/HCPCS: 74177; 80053; 81001; 83690; 83735; 85025; 96361; 96375; 99284-25; J1170; J2405; J7030; Q9967